=== PATIENT | female | born 1955 | race Caucasian/White ===

== ENCOUNTER 2020-02-26 16:22 | Outpatient (CLI) | payer BC, SELFPAY ==
--- NOTE | ~2020-02-26 | MM_ITS ---
EXAMINATION: MM screening [facility] BI w merary HISTORY: Screening mammogram TECHNIQUE: Craniocaudal and mediolateral oblique 3-D tomosynthesis images were obtained and synthetic 2-D images were generated. CAD analysis was submitted and interpreted. COMPARISON: 11/21/2018, 11/12/2017, 11/07/2016 BREAST PARENCHYMAL COMPOSITION: There are scattered areas of fibroglandular density. FINDINGS: There is no evidence of suspicious mass, calcification, or architectural distortion to sugg est malignancy in either breast. There has been no suspicious interval change. IMPRESSION: 1. No mammographic evidence of malignancy. 2. Recommend routine screening mammography in one year. BI-RADS Category 1: Negative Reviewed, dictated and finalized at location A.
== END 2020-02-26 16:23 | disposition home or self-care (01) ==
LOC: ANHIMG 16:29
PROVIDERS: Visit Provider Family Medicine
DX: Z12.31 Encounter for screening mammogram for malignant neoplasm of breast (principal)
CPT/HCPCS: 77063; 77067

== ENCOUNTER 2020-05-04 01:17 | Outpatient (CLI) | payer BC, SELFPAY ==
[2020-05-04 19:35] LABS: SARS-CoV-2 RNA PCR Negative
== END 2020-05-04 01:18 | disposition home or self-care (01) ==
LOC: ANHCOVIDDT 01:18
PROVIDERS: Visit Provider Internal Medicine Gastroenterology
DX: Z01.812 Encounter for preprocedural laboratory examination (principal); Z11.59 Encounter for screening for other viral diseases
CPT/HCPCS: 87635; C9803; U0003

== ENCOUNTER 2020-05-06 01:59 | Day surgery (SDC) | payer BC, SELFPAY ==
[2020-04-29 12:21] VITALS: BMI 27.5
[2020-05-06] MEDS: LACTATED RINGERS 1,000 ML 150 ML IV CONT (08:37)
[2020-05-06 08:38] VITALS: BP 147/75; PULSE 69; RESP 18; TEMP 36.3; O2SAT 100
--- NOTE | 2020-05-06 09:01 | P.PNAN_ITS ---
Anes - Initial Pre Proc Eval Procedure: Operation Date: 05/06/20 09:00 Proposed Procedures p Esophagogastroduodenoscopy - Eliezer Corral MD Date/Time: 05/06/20 09:01 Surgeon: Eliezer Corral MD Pre Op Diagnosis: GERD Patient Data Age: 65 Gender: F Height: 5 ft 3 in Weight: 70 kg Last Vital Signs Temp 97.3 F L 05/06/20 08:38 Pulse 69 05/06/20 08:38 Resp 18 05/06/20 08:38 BP 147/75 H 05/06/20 08:38 Pulse Ox 100 05/06/20 08:38 Allergies Allergy/AdvReac Type Severity Reaction Status Date / Time ciprofloxacin Allergy Unknown Rash Verified 05/06/20 08:35 codeine Allergy Unknown Rash Verified 05/06/20 08:35 dexamethasone Allergy Unknown Rash Verified 05/06/20 08:35 lisinopril Allergy Unknown Rash Verified 05/06/20 08:35 losartan Allergy Unknown RASH Verified 05/06/20 08:35 metoprolol Allergy Unknown Rash Verified 05/06/20 08:35 Home Medications Medication Instructions Recorded Confirmed Type alprazolam 1 mg PO HS 08/08/19 05/06/20 History amlodipine 5 mg PO BID 08/08/19 05/06/20 History aspirin [Adult Low Dose Aspirin] 81 mg PO DAILY 08/08/19 05/06/20 History atenolol 50 mg PO DAILY 08/08/19 05/06/20 History estradiol 1 g VAGINAL 3XW 08/08/19 05/06/20 History estradiol 1 patch TRANSDERMAL WEEKLY 08/08/19 05/06/20 History famciclovir 500 mg PO Q12H 08/08/19 05/06/20 History rosuvastatin 5 mg PO DAILY 08/08/19 05/06/20 History triamterene-hydrochlorothiazid 1 cap PO DAILY 08/08/19 05/06/20 History Colace 100 mg PO BID 04/29/20 05/06/20 History L.acidop,johnie,lac,rha-B.lac,celso 1 cap PO DAILY 04/29/20 05/06/20 History [Advanced Probiotic] Vit D 3 1,000 unit PO DAILY 04/29/20 05/06/20 History cimetidine 400 mg PO BID 04/29/20 05/06/20 History esomeprazole magnesium 40 mg PO DAILY 04/29/20 05/06/20 History nitrofurantoin macrocrystal 50 mg PO HS 04/29/20 05/06/20 History omega-3 fatty acids [Fish Oil 3,000 mg PO DAILY 04/29/20 05/06/20 History Concentrate] venlafaxine 37.5 mg PO DAILY 04/29/20 05/06/20 History Patient hx anesthesia problems: none Family hx anesthesia problems: none [facility] Family History Family History (Updated 05/29/19 @ 09:51 by DOCTOR UNKNOWN) Other Diabetes mellitus Family history of arthritis Social History Social History Smoking status: Former smoker Alcohol intake: current Gender identity (if verbalized by the patient): Female Anes - Eval Final PreProcedure Day of Procedure 05/06/20 09:01 Patient weight: normal Heart: regular rate and rhythm Lungs: clear to auscultation Airway: Mallampati scale class II Neurological: alert and oriented Last oral intake: >/= 8 hours ASA classification: II Emergent: no Anesthetic plan: proceed Anesthesia type and monitoring: general GIVS and standard monitoring Informed Consent: The patient's anesthetic plan and its attendant risks and benefits were discussed with the patient/family/POA. Questions were solicited and answers provided to the satisfaction of the patient/family/POA.
--- NOTE | 2020-05-06 09:02 | WPDGICN ---
Assessment and Plan Assessment and plan (1) Heartburn: Code(s): R12 - Heartburn Status: Acute Assessment and Plan: Because of patient's ongoing heartburn and poor response to medications an EGD will be planned. Patient has a distant history of Ned fundoplication. Plan is for EGD to assess more thoroughly. Continue Nexium with Tagamet supplements for the immediate future. (2) GERD (gastroesophageal reflux disease): Code(s): K21.9 - Gastro-esophageal reflux disease without esophagitis Status: Acute (3) History of fundoplication: Code(s): Z98.890 - Other specified postprocedural states Status: Acute GI Consult Note Consult date/time: 05/06/20 09:02 HPI: Renita Arthur is a 65 year old female Seen in evaluation at the request of Dr. Mirian Bentley. patient has complaints of worsening heartburn since November 2019. She noticed symptoms seemed to worsen after changing her heart medications which included atenolol. Alondra subsequently has been treated with Nexium 40 mg p.o. b.i.d. Carafate supplements and some improvement on adding Tagamet. She currently states she is pain-free and is discontinue the Carafate. She denies any dysphagia or weight loss. Several years ago was found to have distal esophageal web is known to have acid reflux disease colonoscopy in 2017 was unremarkable. Past medical history is significant for fundoplication for acid reflux. Family history is noncontributory. Review of Systems Review of Systems: All systems reviewed & are unremarkable except as noted in HPI and below PMFSH Past Medical History Medical History Arthritis HLD (hyperlipidemia) HTN (hypertension) Surgical History Surgical History History of bladder suspension procedure History of hysterectomy Hx of repair of rotator cuff lt shoulder Family History Family History Other Diabetes mellitus Family history of arthritis Social History Social History Smoking status: Former smoker Alcohol intake: current Gender identity (if verbalized by the patient): Female Meds Home Medications and Allergies Home Medications Medication Instructions Recorded Confirmed Type alprazolam 1 mg PO HS 08/08/19 05/06/20 History amlodipine 5 mg PO BID 08/08/19 05/06/20 History aspirin [Adult Low Dose Aspirin] 81 mg PO DAILY 08/08/19 05/06/20 History atenolol 50 mg PO DAILY 08/08/19 05/06/20 History estradiol 1 g VAGINAL 3XW 08/08/19 05/06/20 History estradiol 1 patch TRANSDERMAL WEEKLY 08/08/19 05/06/20 History famciclovir 500 mg PO Q12H 08/08/19 05/06/20 History rosuvastatin 5 mg PO DAILY 08/08/19 05/06/20 History triamterene-hydrochlorothiazid 1 cap PO DAILY 08/08/19 05/06/20 History Colace 100 mg PO BID 04/29/20 05/06/20 History L.acidop,johnie,lac,rha-B.lac,celso 1 cap PO DAILY 04/29/20 05/06/20 History [Advanced Probiotic] Vit D 3 1,000 unit PO DAILY 04/29/20 05/06/20 History cimetidine 400 mg PO BID 04/29/20 05/06/20 History esomeprazole magnesium 40 mg PO DAILY 04/29/20 05/06/20 History nitrofurantoin macrocrystal 50 mg PO HS 04/29/20 05/06/20 History omega-3 fatty acids [Fish Oil 3,000 mg PO DAILY 04/29/20 05/06/20 History Concentrate] venlafaxine 37.5 mg PO DAILY 04/29/20 05/06/20 History Allergies Allergy/AdvReac Type Severity Reaction Status Date / Time ciprofloxacin Allergy Unknown Rash Verified 05/06/20 08:35 codeine Allergy Unknown Rash Verified 05/06/20 08:35 dexamethasone Allergy Unknown Rash Verified 05/06/20 08:35 lisinopril Allergy Unknown Rash Verified 05/06/20 08:35 losartan Allergy Unknown RASH Verified 05/06/20 08:35 metoprolol Allergy Unknown Rash Verified 05/06/20 08:35 Vital Signs Vital Signs - 24 hr 05/06/20 08:38 Temperature 97.3 F L P
[2020-05-06] MEDS: BENZOCAINE (*SP) 60 ML SPRAY CAN (HURRICAINE) 1 SPRAY MUCOUS MEM (09:13)
[2020-05-06 09:26] VITALS: BP 105/85; PULSE 69; RESP 18; O2SAT 99
[2020-05-06 09:36] VITALS: BP 121/71; PULSE 67; RESP 23; O2SAT 99
[2020-05-06 09:46] VITALS: BP 140/83; PULSE 60; RESP 16; O2SAT 100
== END 2020-05-06 09:53 | disposition home or self-care (01) ==
PROVIDERS: Visit Provider Internal Medicine Gastroenterology
PROC: 0DJ08ZZ Inspection of Upper Intestinal Tract, Via Natural or Artificial Opening Endoscopic (ICD-10-PCS; CPT 43235; principal; 2020-05-06 09:00)
DX: R12 Heartburn (principal); K21.9 Gastro-esophageal reflux disease without esophagitis; I10 Essential (primary) hypertension; E78.5 Hyperlipidemia, unspecified; Z87.891 Personal history of nicotine dependence; Z79.82 Long term (current) use of aspirin
CPT/HCPCS: 43239; 87081; J2001; J2704; J7120

== ENCOUNTER 2020-12-06 14:51 | Outpatient (CLI) | payer BC, SELFPAY ==
--- NOTE | ~2020-12-06 | XR_ITS ---
EXAMINATION: XR chest 2V DATE: 12/06/2020 15:33 INDICATION: Left chest pain. TECHNIQUE: Frontal and lateral views of the chest were obtained on 3 radiographs. COMPARISON: Chest 2 views 08/08/2019, chest CT 08/08/2019 FINDINGS: The chest demonstrates clear lungs without pneumonia, pleural effusion, or pneumothorax. Th e heart size is normal. There is a moderate-sized hiatal hernia. Surgical clips are noted around the stomach. IMPRESSION: 1. Moderate-sized hiatal hernia. Reviewed, dictated and finalized at location A. K STUDIES PROFESSOR
--- NOTE | 2020-12-06 15:11 | ECG_ITS ---
Measurements Intervals [place] Rate: 70 P: 53 [place]: 170 QRS: 27 QRSD: 106 T: 31 QT: 396 QTc: 428 Interpretive Statements SINUS RHYTHM NORMAL ECG Electronically Signed On 12-06-2020 16:26:56 NEWS COMMENTATOR by Geovanny Calles D.O.
== END 2020-12-06 14:52 | disposition home or self-care (01) ==
PROVIDERS: Visit Provider Family Medicine
DX: R07.89 Other chest pain (principal); K44.9 Diaphragmatic hernia without obstruction or gangrene
CPT/HCPCS: 71046; 93005

== ENCOUNTER 2021-03-10 16:12 | Emergency (ER) | payer OTHER, BC, SELFPAY ==
--- NOTE | ~2021-03-10 | XR_ITS ---
EXAMINATION: XR foot LT min 3V DATE: 03/10/2021 16:47 INDICATION: Left foot injury and pain. TECHNIQUE: 4 views of left foot were obtained. COMPARISON: None. FINDINGS: Bone alignment is normal. No fracture. There is moderate osteoarthritis of first metatarsop halangeal joint and mild osteoarthritis of some the interphalangeal joints. There is an enthesophyte at plantar aspect of calcaneal tuberosity. IMPRESSION: 1. Polyarticular osteoarthritis. Reviewed, dictated and finalized at location A.
--- NOTE | ~2021-03-10 | XR_ITS ---
EXAMINATION: XR ankle LT min 3V DATE: 03/10/2021 16:47 INDICATION: Left ankle injury. TECHNIQUE: 4 views of left ankle were obtained. COMPARISON: None. FINDINGS: Bone alignment is normal. No fracture. Joint spaces are normal. There is an enthesophyte at plantar aspect of calcaneal tuberosity. IMPRESSION: 1. No fracture. Reviewed, dictated and finalized at location A. IMPRESSION: 1. No fracture.
--- NOTE | 2021-03-10 16:19 | ED.LOWEXIN ---
HPI - Extremity Injury (Lower) General Chief Complaint: Extremity Injury, Lower Stated Complaint: swollen left foot Source: patient and RN notes reviewed Mode of arrival: ambulatory History of Present Illness HPI Narrative: This is a 66-year-old female who presented to urgent care with complaints of left lower extremity pain status post fall. According to patient approximately 9 days ago while she was walking out of the [employer] shop she missed a step in fell to the ground patient notes that her left foot inverted during the fall. She notes that for the last couple days she has been icing and elevating her leg with no relief she does have discoloration and swelling to the left foot. She also notes that when she bears weight on that left lower extremity she feels pinpoint pain. She has full range of motion to that left lower extremity with pain she has positive for sensation pulses are palpable she is able to move all her toes. The patient denies SOB, CP, palpitation, extremity numbness, lightheadedness, dizziness, constipation, diarrhea, chills, or fever. MD complaint: ankle injury (Left) and foot injury (Left) Related Data Home Medications Medication Instructions Recorded Confirmed alprazolam 1 mg PO HS 08/08/19 03/10/21 amlodipine 5 mg PO BID 08/08/19 03/10/21 aspirin [Adult Low Dose Aspirin] 81 mg PO DAILY 08/08/19 03/10/21 atenolol 50 mg PO DAILY 08/08/19 03/10/21 estradiol 1 g VAGINAL 3XW 08/08/19 03/10/21 estradiol 1 patch TRANSDERMAL WEEKLY 08/08/19 03/10/21 famciclovir 500 mg PO Q12H 08/08/19 03/10/21 rosuvastatin 5 mg PO DAILY 08/08/19 03/10/21 triamterene-hydrochlorothiazid 1 cap PO DAILY 08/08/19 03/10/21 Advanced Probiotic 1 cap PO DAILY 04/29/20 03/10/21 Vit D 3 1,000 unit PO DAILY 04/29/20 03/10/21 esomeprazole magnesium 40 mg PO DAILY 04/29/20 03/10/21 nitrofurantoin macrocrystal 50 mg PO HS 04/29/20 03/10/21 omega-3 fatty acids [Fish Oil 3,000 mg PO DAILY 04/29/20 03/10/21 Concentrate] venlafaxine 37.5 mg PO BID 04/29/20 03/10/21 cimetidine 400 mg PO BID 03/10/21 03/10/21 trazodone 50 mg PO HS 03/10/21 03/10/21 Allergies Allergy/AdvReac Type Severity Reaction Status Date / Time ciprofloxacin Allergy Mild Rash Verified 03/10/21 16:36 codeine Allergy Mild Rash Verified 03/10/21 16:36 dexamethasone Allergy Mild Rash Verified 03/10/21 16:36 lisinopril Allergy Mild Rash Verified 03/10/21 16:36 losartan Allergy Mild RASH Verified 03/10/21 16:36 metoprolol Allergy Mild Rash Verified 03/10/21 16:36 Review of Systems Review of Systems: Narrative: A 14 organ system Review of Systems was performed and pertinent positives included in the HPI, otherwise remaining ROS is negative. [facility] Past Medical History Medical History (Updated 03/10/21 @ 16:47 by JHONATAN Hoffman) Arthritis HLD (hyperlipidemia) HTN (hypertension) Surgical History Surgical History (Updated 05/06/20 @ 09:05 by Eliezer Corral MD) History of bladder suspension procedure History of hysterectomy Hx of repair of rotator cuff lt shoulder Family History Family History Other Diabetes mellitus Family history of arthritis Social History Social History Smoking status: Former smoker Alcohol intake: current Gender identity (if verbalized by the patient): Female Exam Narrative: Exam Narrative: GENERAL: This is a well-nourished, well-developed patient, in no apparent distress. HEAD: normocephalic, atraumatic. EYES: PERRL. Sclera clear/white. Vision is grossly intact. EARS: External ears normal, auditory canals clear and without drainage, TMs normal without perforation. Hearing grossly intact. NOSE: External nose normal with no obvious nasal discharge, nares without redness, no rhinorrhea. THROAT: Mucous membranes moist, posterior pharynx clear. NECK: Neck supple, non-tender without lymphadenopathy, masses or thyromegaly. CA
[2021-03-10 16:22] VITALS: BP 129/81; PULSE 76; RESP 18; TEMP 36.5; O2SAT 99
[2021-03-10 16:39] VITALS: BP 129/81; PULSE 76; RESP 18; TEMP 36.5; O2SAT 99
== END 2021-03-10 17:22 | disposition home or self-care (01) ==
PROVIDERS: Emergency Provider Nurse Practitioner; PCP Family Medicine
DX: S93.402A Sprain of unspecified ligament of left ankle, initial encounter (principal); S96.912A Strain of unspecified muscle and tendon at ankle and foot level, left foot, initial encounter; W10.9XXA Fall (on) (from) unspecified stairs and steps, initial encounter; M19.90 Unspecified osteoarthritis, unspecified site; E78.5 Hyperlipidemia, unspecified; I10 Essential (primary) hypertension; Z87.891 Personal history of nicotine dependence
CPT/HCPCS: 73610; 73630; 99213; G0463

== ENCOUNTER 2021-04-19 15:03 | Outpatient (CLI) | payer BC, SELFPAY ==
--- NOTE | ~2021-04-19 | MM_ITS ---
EXAMINATION: MM screening [facility] BI w merary HISTORY: Screening TECHNIQUE: Craniocaudal and mediolateral oblique 3-D tomosynthesis images were obtained and synthetic 2-D images were generated. CAD analysis was submitted and interpreted. COMPARISON: Comparison to multiple prior studies sequentially, with oldest reviewed study dated 10/19. BREAST PARENCHYMAL COMPOSITION: There are scattered areas of fibroglandular density. FINDINGS: Bilateral subareolar asymmetries are unchanged from prior studies. There is no evidence of suspicious mass, calcification, or architectural distortion to suggest malignancy in either breast. T here has been no suspicious interval change. IMPRESSION: 1. No mammographic evidence of malignancy. 2. Recommend routine screening mammography in one year. BI-RADS Category 1: Negative Reviewed, dictated and finalized at location A.
== END 2021-04-19 15:04 | disposition home or self-care (01) ==
LOC: ANHIMG 15:08
PROVIDERS: PCP Family Medicine; Visit Provider Family Medicine
DX: Z12.31 Encounter for screening mammogram for malignant neoplasm of breast (principal)
CPT/HCPCS: 77063; 77067

== ENCOUNTER 2021-09-02 09:45 | Outpatient (CLI) | payer BC, SELFPAY | END 2021-09-02 09:46 | disposition home or self-care (01) | LOC: ANHAUDIO 09:46 | PROVIDERS: PCP Family Medicine; Visit Provider Nurse Practitioner Family | DX: H93.13 Tinnitus, bilateral (principal) | CPT/HCPCS: 92557; 92567 ==

== ENCOUNTER 2022-06-27 15:51 | Outpatient (CLI) | payer MEDICARE, OTHER, SELFPAY ==
--- NOTE | ~2022-06-27 | MM_ITS ---
EXAMINATION: MM screening [facility] w merary HISTORY: Screening mammogram TECHNIQUE: Craniocaudal and mediolateral oblique 3-D tomosynthesis images were obtained and synthetic 2-D images were generated. CAD analysis was submitted and interpreted. COMPARISON: 04/19/2021, 02/26/2020, 11/21/2018 bilateral screening mammogram examinations BREAST PARENCHYMAL COMPOSITION: There are scattered areas of fibroglandular density. FINDINGS: Scattered bilateral benign calcifications. Stable mild fibroglandular asymmetry. There is n o evidence of suspicious mass, calcification, or architectural distortion to suggest malignancy in ei ther breast. There has been no suspicious interval change. IMPRESSION: 1. No mammographic evidence of malignancy. 2. Recommend routine screening mammography in one year. BI-RADS Category 2: Benign finding(s). Reviewed, dictated and finalized at location A.
== END 2022-06-27 15:52 | disposition home or self-care (01) ==
PROVIDERS: PCP Family Medicine; Visit Provider Family Medicine
DX: Z12.31 Encounter for screening mammogram for malignant neoplasm of breast (principal)
CPT/HCPCS: 77063; 77067

== ENCOUNTER 2023-11-06 09:57 | Outpatient (CLI) | payer MEDICARE, OTHER, SELFPAY ==
--- NOTE | ~2023-11-06 | MM_ITS ---
EXAMINATION: MM screening [facility] w merary HISTORY: Screening mammogram TECHNIQUE: Craniocaudal and mediolateral oblique 3-D tomosynthesis images were obtained and synthetic 2-D images were generated. CAD analysis was submitted and interpreted. COMPARISON: 06/27/2022, 04/19/2021, 02/26/2020 bilateral screening mammogram examinations BREAST PARENCHYMAL COMPOSITION: There are scattered areas of fibroglandular density. FINDINGS: Stable fibroglandular asymmetry. Scattered bilateral benign calcifications are again noted. There is no evidence of suspicious mass, calcification, or architectural distortion to suggest malig jong in either breast. There has been no suspicious interval change. IMPRESSION: 1. No mammographic evidence of malignancy. 2. Recommend routine screening mammography in one year. BI-RADS Category 2: Benign finding(s). Reviewed, dictated and finalized at location A. TECHNICIAN
== END 2023-11-06 09:58 | disposition home or self-care (01) ==
PROVIDERS: PCP Family Medicine; Visit Provider Family Medicine
DX: Z12.31 Encounter for screening mammogram for malignant neoplasm of breast (principal)
CPT/HCPCS: 77063; 77067

== ENCOUNTER 2023-12-03 13:28 | Outpatient (CLI) | payer MEDICARE, OTHER, SELFPAY ==
--- NOTE | ~2023-12-03 | CT_ITS ---
EXAMINATION: CT LE RT wo con DATE: 12/03/2023 13:59 INDICATION: Right knee unilateral primary osteoarthritis. Preop planning. TECHNIQUE: Computed tomography (CT) of the right lower limb was performed without intravenous contras t. Automated exposure control and iterative reconstruction technique were employed. The dose-length p roduct was 1488.09 mGy-cm. COMPARISON: Right knee radiographs 08/06/2023 FINDINGS: Right hip demonstrates normal bone alignment. No fracture. There is mild right hip osteoart hritis. Right knee demonstrates moderate osteoarthritis of the medial and patellofemoral compartments and mild osteoarthritis of lateral compartment. There is a moderate-sized knee joint effusion. IMPRESSION: 1. Moderate right knee osteoarthritis. 2. Moderate-sized right knee joint effusion. 3. Mild right hip osteoarthritis. Reviewed, dictated and finalized at location E. TRUCTION CONTRACTOR
--- NOTE | 2023-12-03 14:06 | ECG_ITS ---
Measurements Intervals [place] Rate: 69 P: 46 NE: 158 QRS: 18 QRSD: 93 T: 32 QT: 365 QTc: 391 Interpretive Statements SINUS RHYTHM DELAYED PRECORDIAL R/S TRANSITION BORDERLINE T WAVE ABNORMALITY- ANT/INF LEADS BASELINE WANDER- V3-V4 BORDERLINE ECG COMPARED TO ECG 12/06/2020 15:18:28 NO SIGNIFICANT CHANGES Electronically Signed On 12-03-2023 14:20:17 SERGEANT MISSILE CREWMAN by Geovanny Calles D.O.
[2023-12-03 15:02] LABS: Hematocrit 37.5 % (37.0-47.0)
[2023-12-03 15:18] LABS: Albumin Level 4.2 g/dL (3.5-5.1); Estimated Glomerular Filt Rate > 60; Glucose 110 mg/dL (65-110)
[2023-12-03 15:31] LABS: Urine Cotinine NEGATIVE
== END 2023-12-03 13:29 | disposition home or self-care (01) ==
PROVIDERS: PCP Family Medicine; Visit Provider Orthopaedic Surgery
DX: M17.11 Unilateral primary osteoarthritis, right knee (principal); I10 Essential (primary) hypertension; E78.5 Hyperlipidemia, unspecified; Z79.899 Other long term (current) drug therapy; M16.11 Unilateral primary osteoarthritis, right hip; M25.461 Effusion, right knee
CPT/HCPCS: 73700; 80307; 82040; 82565; 82947; 85014; 85018; 93005

== ENCOUNTER 2023-12-26 07:44 | Outpatient (CLI) | payer MEDICARE, OTHER, SELFPAY ==
[2023-12-26 09:27] LABS: Basophils Percent Auto 0.7 % (0.2-1.2); Eosinophils Absolute Auto 0.7 K/mm3 (0-0.3); Eosinophils Percent Auto 12.1 % (0-4.4); Hematocrit 38.5 % (37.0-47.0); Hemoglobin 12.9 g/dL (12.0-15.0); Immature Granulocyte Absolute 0.02 K/mm3 (0.00-0.031); Immature Granulocyte Percent A 0.3 % (0-0.5); Lymphocytes Absolute Auto 1.64 K/mm3 (0.9-3.2); Lymphocytes Percent Auto 28.7 % (18.3-44.2); Mean Corpuscular HGB Conc 33.5 g/dl (32-36); Mean Corpuscular Hemoglobin 30.6 pg (26-34); Mean Corpuscular Volume 91.4 fl (80-100); Monocytes Absolute Auto 0.5 K/mm3 (0.1-0.6); Monocytes Percent Auto 8.6 % (2.6-8.5); Neutrophils Absolute Auto 2.8 K/mm3 (1.3-6.7); Neutrophils Percent Auto 49.6 % (45.5-73.1); Platelet Count Result 223 k/mm3 (150-375); Red Blood Count 4.21 M/mm3 (4.2-5.4); Red Cell Distribution Width 12.6 % (11.5-14.5); White Blood Count 5.7 K/mm3 (4.5-10.0)
[2023-12-26 10:02] LABS: Anion Gap 6 mmol/L (4-12); Blood Urea Nitrogen 13 mg/dL (7-17); Calcium 10.3 mg/dL (8.4-10.2); Carbon Dioxide 29 mmol/L (22-30); Chloride 103 mmol/L (98-107); Estimated Glomerular Filt Rate > 60; Glucose 106 mg/dL (65-110); Sodium 138 mmol/L (137-145)
[2023-12-26 10:20] LABS: Hemoglobin A1C 5.7 % (<5.7)
[2023-12-26 10:41] LABS: MRSA (PCR) NOT DETECTED (NOT DETECTE)
== END 2023-12-26 07:45 | disposition home or self-care (01) ==
LOC: ANHSURGERY 07:51
PROVIDERS: Anesthesiology; PCP Family Medicine; Visit Provider Orthopaedic Surgery
DX: Z01.818 Encounter for other preprocedural examination (principal); M17.11 Unilateral primary osteoarthritis, right knee; E11.9 Type 2 diabetes mellitus without complications
CPT/HCPCS: 36415; 80048; 83036; 85025; 87641

== ENCOUNTER 2024-01-24 00:54 | Day surgery (SDC) | payer MEDICARE, OTHER, SELFPAY ==
[2023-12-26 08:22] VITALS: BP 110/92; PULSE 70; RESP 16; TEMP 36.8; O2SAT 100; BMI 27.0
--- NOTE | 2023-12-26 08:41 | PC.NURSE ---
Report to the Outpatient Waiting Room, entrance under the green pavilion located off [facility], at time __8:00AM on date __01/24/24 . Planned Procedure Time: __10:00AM . Time changes happen often and if your time is changed the preop area will call you the afternoon before. - You and your visitor will be asked to self-screen and do not enter if you have any COVID symptoms. - A mask is optional within the hospital at this time. Patients may have clear liquids (water, carbonated beverages, clear teas, apple juice) until 3 hours prior to surgery with a maximum of 20 ounces. - No food from midnight until time of surgery. Take the following medications with a SIP of water the morning of surgery: ___ALPRAZOLAM, AMLODIPINE, ATENOLOL, VENLAFAXINE, BREZTRI INHALER DO NOT STOP ANY OF YOUR OTHER PRESCRIPTION MEDICATIONS PRIOR TO SURGERY ?EXCEPT THE FOLLOWING Medications to discontinue per physician ____HOLD ASPIRIN & VITAMINS/SUPPLEMENTS 7 DAYS PRE-OP PER DR VERDUZCO Date to take last dose 01/16/24 Please no make-up, nail chilean, hairspray, perfume, deodorant, or body powder the day of surgery. No jewelry (including any body piercings) or valuables the day of surgery, leave them at home. Please take a shower or bath the night before, or the morning of, surgery with an antibacterial soap. Wear comfortable, loose fitting clothing. - Jewelry must be removed prior to entering the operating room. Rings and piercings that are not removed may be cut off. - The hospital will not accept responsibility for valuables. - Please leave all valuables, including medications, at home the day of surgery. If you are going home after surgery, a licensed rail car driver must drive you home. - NO public transportation without another adult if you receive anesthesia. - We recommend that an adult stay with you for 24 hours following discharge. - We also recommend that you do not drive, make important decision, drink alcoholic beverages, or take any drugs that were not prescribed by your health care provider for at least 24 hours after your discharge time. Follow any additional instructions given to you from your surgeon. If you or anyone in your household have experienced Covid symptoms in the past week, please notify your surgeon or the nurse liaison at the phone number below for possible testing. Telephone instructions given to ____PATIENT and asked if any additional questions and then verbalized understanding. Patient advised to call surgeon office or pre surgery nurse liaison [phone] if any additional questions.
--- NOTE | 2023-12-26 08:45 | PC.NURSE ---
Report to the Outpatient Waiting Room, entrance under the green pavilion located off [facility], at time __8:00AM on date ___01/24/24____. Planned Procedure Time: __10:00AM . Time changes happen often and if your time is changed the preop area will call you the afternoon before. - You and your visitor will be asked to self-screen and do not enter if you have any COVID symptoms. - A mask is optional within the hospital at this time. Patients may have clear liquids (water, carbonated beverages, clear teas, apple juice) until 3 hours prior to surgery with a maximum of 20 ounces. - No food from midnight until time of surgery. Take the following medications with a SIP of water the morning of surgery: __ALPRAZOLAM, AMLODIPINE, ATENOLOL, VENLAFAXINE, INHALER DO NOT STOP ANY OF YOUR OTHER PRESCRIPTION MEDICATIONS PRIOR TO SURGERY ?EXCEPT THE FOLLOWING Medications to discontinue per physician ____HOLD ASPIRIN & ALL VITAMINS/SUPPLEMENTS 7 DAYS PRE-OP Date to take last dose 01/16/24 Please no make-up, nail spanish, hairspray, perfume, deodorant, or body powder the day of surgery. No jewelry (including any body piercings) or valuables the day of surgery, leave them at home. Please take a shower or bath the night before, or the morning of, surgery with an antibacterial soap. Wear comfortable, loose fitting clothing. - Jewelry must be removed prior to entering the operating room. Rings and piercings that are not removed may be cut off. - The hospital will not accept responsibility for valuables. - Please leave all valuables, including medications, at home the day of surgery. If you are going home after surgery, a licensed trailer driver must drive you home. - NO public transportation without another adult if you receive anesthesia. - We recommend that an adult stay with you for 24 hours following discharge. - We also recommend that you do not drive, make important decision, drink alcoholic beverages, or take any drugs that were not prescribed by your health care provider for at least 24 hours after your discharge time. Follow any additional instructions given to you from your surgeon. If you or anyone in your household have experienced Covid symptoms in the past week, please notify your surgeon or the nurse liaison at the phone number below for possible testing. Telephone instructions given to __PATIENT and asked if any additional questions and then verbalized understanding. Patient advised to call surgeon office or pre surgery nurse liaison [phone] if any additional questions.
[2024-01-24] VITALS (13 sets, daily range): BP systolic 92–126; BP diastolic 57–81; PULSE 66–82; RESP 10–18; TEMP 35.6–37.1; O2SAT 95–100
--- NOTE | ~2024-01-24 | XR_ITS ---
EXAMINATION: [id number] DATE: 01/24/2024 13:14 CDT INDICATION: Right total knee arthroplasty TECHNIQUE: 2 views right knee FINDINGS: There is a right total knee arthroplasty in expected position. Subcutaneous gas with fluid and air in the joint are consistent with recent surgery. No evidence of periprosthetic fracture. IMPRESSION: 1. Recent right total knee arthroplasty. Reviewed, dictated and finalized at location B.
[2024-01-24] MEDS: ACETAMINOPHEN 500 MG TABLET 1000 MG PO (08:25)
[2024-01-24] MEDS: LACTATED RINGERS 1,000 ML 30 ML IV CONT ×2 (08:38→12:53)
[2024-01-24 08:43] LABS: Glucose Point of Care 133 mg/dl (65-105)
--- NOTE | 2024-01-24 09:25 | WPDANESEPPF ---
Anes - Initial Pre Proc Eval Procedure: Operation Date: 01/24/24 10:00 Proposed Procedures p Right Custom Total Knee Arthroplasty - Keenan Pichardo MD Date/Time: 01/24/24 09:25 Surgeon: Keenan Pichardo MD Pre Op Diagnosis: Prim O A Rt Knee Patient Data Age: 69 Gender: F Height: 1.61 m Weight: 71.2 kg Last Vital Signs Temp 98.3 F 01/24/24 08:58 Pulse 66 01/24/24 08:58 Resp 16 01/24/24 08:58 BP 112/81 01/24/24 08:58 Pulse Ox 99 01/24/24 08:58 O2 Del Method Room Air 01/24/24 08:58 Allergies Allergy/AdvReac Type Severity Reaction Status Date / Time ciprofloxacin Allergy Mild Rash, Verified 01/24/24 08:09 FLUSHING OF SKIN dexamethasone Allergy Mild Rash Verified 01/24/24 08:09 lisinopril Allergy Mild Rash Verified 01/24/24 08:09 losartan Allergy Mild RASH Verified 01/24/24 08:09 metoprolol Allergy Mild Rash Verified 01/24/24 08:09 codeine AdvReac Mild LIGHTHEADED, Verified 01/24/24 08:09 DIZZY Home Medications Medication Instructions Recorded Confirmed Type alprazolam 1 mg tablet 1 mg PO BID 08/08/19 01/24/24 History amlodipine 5 mg tablet 5 mg PO BID 08/08/19 01/24/24 History aspirin 81 mg tablet,delayed 81 mg PO DAILY 08/08/19 01/24/24 History release (Adult Low Dose Aspirin) atenolol 50 mg tablet 50 mg PO QAM 08/08/19 01/24/24 History estradiol 0.01% (0.1 mg/gram) 1 g vaginal 3XW PRN Pain 08/08/19 01/24/24 History vaginal cream rosuvastatin 5 mg tablet 5 mg PO DAILY 08/08/19 01/24/24 History triamterene 37.5 1 cap PO QAM 08/08/19 01/24/24 History mg-hydrochlorothiazide 25 mg capsule L.acidop,casei,lactis,rham-B.lact,celso 1 cap PO DAILY 04/29/20 01/24/24 History 625 mg (10 billion cell) capsule (Advanced Probiotic) omega-3 fatty acids 1,000 mg 3,000 mg PO DAILY 04/29/20 01/24/24 History capsule (Fish Oil Concentrate) metformin 500 mg tablet 500 mg PO BID 12/16/21 01/24/24 History blood sugar diagnostic 08/06/23 01/07/24 History lancets 21 gauge (Unistik Extra 08/06/23 01/07/24 History Lancets) budesonide 160 mcg-glycopyr 9 2 inh inhalation BID PRN Shortness 11/23/23 01/24/24 History mcg-formot 4.8 mcg/actuation HFA Of Breath Or Wheezing inhaler (Breztri Aerosphere) acetaminophen 500 mg tablet 1,000 mg PO Q6H PRN Pain 12/26/23 01/24/24 History (Tylenol Extra Strength) cholecalciferol (vitamin D3) 25 25 mcg PO DAILY 12/26/23 01/24/24 History mcg (1,000 unit) capsule diphenhydramine 25 2 tablet PO HS PRN Insomnia 12/26/23 01/24/24 History mg-acetaminophen 500 mg tablet (Tylenol PM Extra Strength) polyethylene glycol 3350 17 gram 17 g PO DAILY 12/26/23 01/24/24 History oral powder packet (Miralax) sennosides 8.6 mg-docusate sodium 1 tab-cap PO DAILY 12/26/23 01/24/24 History 50 mg tablet (Senna with Docusate Sodium) venlafaxine 75 mg capsule,extended 75 mg PO QAM 12/26/23 01/24/24 History release 24 hr oxycodone-acetaminophen 5 mg-325 1 - 2 tablet PO Q4-6H PRN pain #30 01/24/24 Rx mg tablet tabs prednisone 5 mg tablet 5 mg PO DAILY 3 weeks #21 tabs 01/24/24 Rx Laboratory Tests 01/24/24 01/24/24 08:29 08:40 POC Capillary Glucose 133 H mg/dl (65-105) Blood Type Pending Antibody Screen Pending Patient hx anesthesia problems: none Family hx anesthesia problems: none Results Review: All pre-operative results and documents have been reviewed as part of the pre-operative evaluation. [facility] Past Medical History Medical History Arthritis HLD (hyperlipidemia) HTN (hypertension) Overweight (BMI 25.0-29.9) Surgical History Surgical History History of bladder suspension procedure History of hysterectomy Hx of repair of rotator cuff lt shoulder Family History Family History (Reviewed 01/24/24 @ 09:25 by Dario Recio,
[2024-01-24] MEDS: TRANEXAMIC ACID 1,000MG/ISO100 1,000 MG/100 ML BAG 200 MG IVPB (09:45)
--- NOTE | 2024-01-24 10:22 | WPDHPUPDATE1 ---
History and Physical Update Update Date/Time: 01/24/24 10:22 History and Physical has been reviewed, including an updated exam of the patient. There are NO changes in the patient's condition. Risks, benefits, and alternatives have been discussed and questions answered. Patient agrees to proceed with procedure.
--- NOTE | 2024-01-24 10:27 | WPDANESPNB ---
Anes - Peripheral Nerve Block Date/Time: 01/24/24 10:27 I have discussed with the patient/family/POA the placement of a peripheral nerve block for post-operative pain management, including associated risks, benefits, complications, and side effects. Alternative methods of post-operative analgesia were detailed. Questions were solicited and answers provided to the satisfaction of the patient/family/POA. Time-Out: A pre-procedural Time-Out was completed immediately before starting the procedure and confirmed: Patient Identification, Site, Procedure, Patient Position and the Availability of Requisite Equipment. Clinical Indications: Acute post-operative pain management requested by the operative surgeon. Nerve Block Insertion Note Anes-nerve block: adductor canal Patient position: supine Skin prep: chlorhexidine Needle: 22 gauge, stimulating, insulated echogenic needle. Needle length: 80 mm Technique: ultrasound Injectate: other (Bupiv 0.5%, 15 mls. ) Observations: tolerated well Complications: none Procedure start time:: 1016 Procedure end time:: 1021
[2024-01-24] MEDS: ceFAZolin 2 GM/D5W 50 ML 2 GM/50 ML BAG IVPB ×2 (10:29→17:52)
[2024-01-24] MEDS: SODIUM CHLORIDE 0.9% IV 37.7 ML, MORPHINE SULFATE INJ (*CRX) 2 MG, ROPivacaine HCL 1% 2... INFILTRATE (11:14)
[2024-01-24 13:09] LABS: Glucose Point of Care 137 mg/dl (65-105)
[2024-01-24] MEDS: fentaNYL CITRATE INJ (*CRX) 100 MCG/2 ML VIAL 25 MCG IV PUSH ×5 (13:21→14:04)
--- NOTE | 2024-01-24 14:58 | W.PM.PROC2 ---
Procedure Note - Detailed Date of Procedure 01/24/24 Pre-op Diagnosis Osteoarthritis right knee Post-op Diagnosis Same Procedure Performed Total knee arthroplasty, right. Surgeon Keenan Pichardo MD Leather Stretcher Laura Kennedy PA-C Anesthesia General and Regional (Subsartorial block.) Findings Custom knee implants fit optimally. No significant contracture. Good bone quality. No additional releases. Description of Procedure Preoperative antibiotics were given. The limb was prepped and draped in the usual sterile fashion with a well-padded tourniquet high on the thigh. The limb was exsanguinated and the tourniquet inflated to 300 mmHg. A longitudinal incision was created just medial to the patella. A sub vastus approach to the knee was performed. Arthrotomy was taken down through the joint capsule. No significant releases were initially taken. The femur was exposed and the F1 jig was applied. The coring tool was used to remove the cartilage for the F2 jig to sit flush with the bone. The jig was pinned and the distal cut carefully taken. Caliper measurements confirmed appropriate bony resections according to the preoperative templated plan. The F4 cutting jig for the femur was applied, at the standard rotation. The AP and anterior chamfer cuts were taken. The F5 jig was applied and the posterior chamfer cuts were taken. The tibia was prepared using the T1 jig, after removing cartilage for the jig contact points. Proper alignment was checked with the alignment karsten. The tibia was cut using the T1u guide. Gap balancing was performed. Gap measurements were taken and the knee was trialed. Excellent alignment and soft tissue balancing was confirmed. The posterior cruciate ligament was recessed along the proximal tibia. The patella was denervated. Meniscal remnants were removed. The trial components were assembled. Excellent range of motion and proper soft tissue balancing were confirmed throughout the full range of motion. Patellar tracking was excellent. The knee was copiously irrigated periodically throughout the procedure. The real implants were cemented into position. Excess cement was carefully removed. The wound was closed in layers with interrupted #1 Vicryl suture, 2-0 strata fix suture, 0 strata fix suture, 2-0 strata fix suture. Steri-Strips placed on the skin with the knee flexed. Sterile bulky dressing applied. The patient was brought to the recovery room in stable condition. There were no complications. Physician assistant plant control operator, Laura Kennedy PA-C, required for surgery; including patient positioning, draping, tissue retraction, maintaining instrument position, cement removal, wound closure, and dressing placement. Implants Conformis Custom total knee arthroplasty. Cemented. Cruciate retaining. 6B insert. Estimated Blood Loss 100 Drains No Complications No immediate complications Condition Stable Disposition PACU [facility] Billing Surgery - Charge Forward: Surgery Billing
--- NOTE | 2024-01-24 15:09 | PC.NURSE ---
This patient, Renita Arthur, was admitted to 3 [facility] Surg Room 300-01. Report received from LIO Gooden. Patient/family oriented to hospital policies and general routines including ID bracelet, bed and alarms, visiting hours, pain management, procedures, bathroom and other care routines, personal items, smoking policy, room service/diet, and visiting hours. Information on how to activate the Rapid Response Team has been discussed. Patient/Family are encouraged to report perceived risks to care and to ask questions if they do not understand what they are told or what they should do.
[2024-01-24] MEDS: ASPIRIN 81 MG ENTERIC TABLET PO (17:00)
[2024-01-24] MEDS: metFORMIN HCL 500 MG TABLET PO (17:00)
[2024-01-24] MEDS: ALPRAZolam (*CRX) 0.5 MG TABLET 1 MG PO (17:01)
[2024-01-24] MEDS: SENNA/DOCUSATE SODIUM TABLET 2 TAB PO (17:01)
[2024-01-24] MEDS: ACETAMINOPHEN 325 MG TABLET 650 MG PO (17:52)
[2024-01-24] MEDS: amLODIPine BESYLATE 5 MG TABLET PO (20:49)
[2024-01-25 00:08] VITALS: BP 112/62; PULSE 73; RESP 16; TEMP 36.2; O2SAT 98
[2024-01-25] MEDS: ACETAMINOPHEN 325 MG TABLET 650 MG PO ×3 (00:32→12:51)
[2024-01-25] MEDS: ceFAZolin 2 GM/D5W 50 ML 2 GM/50 ML BAG IVPB ×2 (03:02→11:07)
[2024-01-25 03:39] VITALS: BP 122/64; PULSE 72; RESP 18; TEMP 36.1; O2SAT 100
[2024-01-25] MEDS: oxyCODONE/ACETAMINOPHEN (*CRX) 5-325 MG TABLET 1 TABLET PO (05:30)
[2024-01-25 06:27] LABS: Basophils Percent Auto 0.4 % (0.2-1.2); Eosinophils Absolute Auto 0.2 K/mm3 (0-0.3); Hematocrit 33.7 % (37.0-47.0); Immature Granulocyte Absolute 0.01 K/mm3 (0.00-0.031); Immature Granulocyte Percent A 0.2 % (0-0.5); Lymphocytes Absolute Auto 1.17 K/mm3 (0.9-3.2); Mean Corpuscular HGB Conc 32.6 g/dl (32-36); Mean Corpuscular Volume 91.8 fl (80-100); Mean Platelet Volume 9.4 fl (7.4-10.4); Monocytes Absolute Auto 0.5 K/mm3 (0.1-0.6); Monocytes Percent Auto 8.5 % (2.6-8.5); Neutrophils Absolute Auto 3.7 K/mm3 (1.3-6.7); Neutrophils Percent Auto 65.9 % (45.5-73.1); Platelet Count Result 162 k/mm3 (150-375); Red Blood Count 3.67 M/mm3 (4.2-5.4); Red Cell Distribution Width 12.1 % (11.5-14.5); White Blood Count 5.6 K/mm3 (4.5-10.0)
[2024-01-25 06:35] LABS: Anion Gap 5 mmol/L (4-12); Blood Urea Nitrogen 21 mg/dL (7-17); Calcium 9.6 mg/dL (8.4-10.2); Carbon Dioxide 27 mmol/L (22-30); Chloride 106 mmol/L (98-107); Estimated CRCL calculation 51 ml/min; Estimated Glomerular Filt Rate > 60; Glucose 99 mg/dL (65-110); Potassium 3.4 mmol/L (3.4-5.0); Sodium 138 mmol/L (137-145)
--- NOTE | 2024-01-25 07:31 | P.PNAN_ITS ---
Anes - Prog Note Post-Op Date/Time: 01/25/24 07:31 Cardiovascular status: normal Respiratory status: normal Airway patency: baseline Mental status: baseline Post-Op hydration status: normal Vital Signs: Last Vital Signs Temp 96.9 F L 01/25/24 03:39 Pulse 72 01/25/24 03:39 Resp 18 01/25/24 03:39 BP 122/64 01/25/24 03:39 Pulse Ox 100 01/25/24 03:39 O2 Del Method Room Air 01/24/24 20:50 O2 Flow Rate 2 01/24/24 14:25 Pain Score (VAS): 0/10 I/O: Intake & Output 01/24/24 01/24/24 01/25/24 15:59 23:59 07:59 Intake Total 50 530 50 Balance 50 530 50 Laboratory Tests 01/25/24 05:33 01/25/24 05:33 01/24/24 01/24/24 01/24/24 08:29 08:40 13:07 WBC RBC Hgb Hct MCV MCH MCHC RDW Plt Count MPV Immature Gran % (Auto) Neut % (Auto) Lymph % (Auto) [place] % (Auto) Eos % (Auto) Baso % (Auto) Lymph # (Auto) [place] # (Auto) Eos # (Auto) Baso # (Auto) Abs Immat Gran (auto) Absolute Neuts (auto) Absolute Nucleated RBC Nucleated RBC % Sodium Potassium Chloride Carbon Dioxide Anion Gap BUN Creatinine Estim Creat Clear Calc Estimated GFR Glucose POC Capillary Glucose 133 H 137 H Calcium Blood Type A Positive Antibody Screen Negative 01/25/24 05:33 WBC 5.6 RBC 3.67 L Hgb 11.0 L Hct 33.7 L MCV 91.8 MCH 30.0 MCHC 32.6 RDW 12.1 Plt Count 162 MPV 9.4 Immature Gran % (Auto) 0.2 Neut % (Auto) 65.9 Lymph % (Auto) 21.0 [place] % (Auto) 8.5 Eos % (Auto) 4.0 Baso % (Auto) 0.4 Lymph # (Auto) 1.17 [place] # (Auto) 0.5 Eos # (Auto) 0.2 Baso # (Auto) 0.0 Abs Immat Gran (auto) 0.01 Absolute Neuts (auto) 3.7 Absolute Nucleated RBC 0.000 Nucleated RBC % 0.0 Sodium 138 Potassium 3.4 Chloride 106 Carbon Dioxide 27 Anion Gap 5 BUN 21 H Creatinine 0.90 Estim Creat Clear Calc 51 Estimated GFR > 60 Glucose 99 POC Capillary Glucose Calcium 9.6 Blood Type Antibody Screen Post-procedural complaints: none Patient Feedback: Patient satisfied with anesthetic care.
[2024-01-25 08:00] VITALS: BP 104/56; PULSE 78; RESP 18; TEMP 36.4; O2SAT 96
[2024-01-25] MEDS: SENNA/DOCUSATE SODIUM TABLET 2 TAB PO (08:28)
[2024-01-25] MEDS: predniSONE 5 MG TABLET PO (08:28)
[2024-01-25] MEDS: polyethylene glycoL 3350 17 GM POWD.PACK PO (08:28)
[2024-01-25] MEDS: amLODIPine BESYLATE 5 MG TABLET PO (08:28)
[2024-01-25] MEDS: ALPRAZolam (*CRX) 0.5 MG TABLET 1 MG PO (08:28)
[2024-01-25 08:29] VITALS: O2SAT 98
[2024-01-25] MEDS: ASPIRIN 81 MG ENTERIC TABLET PO (08:29)
[2024-01-25] MEDS: TRIAMTERENE 37.5 MG/HCTZ 25 MG (MAXZIDE) TABLET 1 TAB PO (08:29)
[2024-01-25] MEDS: VENLAFAXINE HCL XR 75 MG CAP.ER.24H PO (08:29)
[2024-01-25] MEDS: traMADol HCL (*CRX) 50 MG TABLET PO (08:29)
[2024-01-25] MEDS: metFORMIN HCL 500 MG TABLET PO (08:29)
[2024-01-25] MEDS: ROSUVASTATIN 5 MG TABLET PO (08:30)
[2024-01-25 08:34] VITALS: PULSE 82
[2024-01-25] MEDS: atenoloL 50 MG TABLET PO (08:34)
--- NOTE | 2024-01-25 08:36 | PM.DS ---
DS: Admitting Diagnosis Discharge Date 01/25/24 Admitting Diagnosis Knee arthritis. DS: Discharge Diagnosis Discharge Diagnosis (1) Status post total right knee replacement: Code(s): Z96.651 - Presence of right artificial knee joint Status: Acute Assessment and Plan: Postop day 1: Right total knee arthroplasty. Patient tolerated procedure well. No complications. Pain manageable with pain medication. No numbness or tingling. Excellent quad function. We had a lengthy discussion regarding postoperative wound care, limitations, expectations, and exercises. Patient shows good understanding. She has had initial physical therapy and is tolerating it well. DVT prophylaxis: 81 mg baby aspirin b.i.d. for 14 days. Pain medication: Percocet. Prednisone. Patient has followup appointment with Dr. Pichardo in 3 weeks. DS: Summary Hospital Course Reason for hospitalization: Total knee arthroplasty Hospital Course: Patient tolerated procedure well. Has had initial PT/OT. No complications. Pain well managed. Status at Discharge Functional status at discharge: uses cane/walker Overall status at discharge: patient is progressing back to baseline Time Spent with Patient Time attestation: Total time spent providing and/or coordinating discharge services: Exam Narrative: Normal weight 69 y/o female. Resting comfortably in chair. No acute distress. A&O x3. Wearing compression socks bilaterally. Dressing intact with no drainage. Mild swelling. No ecchymosis. No erythema. No hematoma. Good early range of motion. Excellent quad function nontender. Neurologic status intact. No varicosities. Distal pulses palpable. DS: Data Data Completed and Pending Labs on day of discharge: Labs from last 24 hours 01/25/24 01/24/24 01/24/24 05:33 13:07 08:40 WBC 5.6 RBC 3.67 L Hgb 11.0 L Hct 33.7 L MCV 91.8 MCH 30.0 MCHC 32.6 RDW 12.1 Plt Count 162 MPV 9.4 Immature Gran % (Auto) 0.2 Neut % (Auto) 65.9 Lymph % (Auto) 21.0 [place] % (Auto) 8.5 Eos % (Auto) 4.0 Baso % (Auto) 0.4 Lymph # (Auto) 1.17 [place] # (Auto) 0.5 Eos # (Auto) 0.2 Baso # (Auto) 0.0 Abs Immat Gran (auto) 0.01 Absolute Neuts (auto) 3.7 Absolute Nucleated RBC 0.000 Nucleated RBC % 0.0 Sodium 138 Potassium 3.4 Chloride 106 Carbon Dioxide 27 Anion Gap 5 BUN 21 H Creatinine 0.90 Estim Creat Clear Calc 51 Estimated GFR > 60 Glucose 99 POC Capillary Glucose 137 H 133 H Calcium 9.6 Blood Type Antibody Screen 01/24/24 08:29 WBC RBC Hgb Hct MCV MCH MCHC RDW Plt Count MPV Immature Gran % (Auto) Neut % (Auto) Lymph % (Auto) [place] % (Auto) Eos % (Auto) Baso % (Auto) Lymph # (Auto) [place] # (Auto) Eos # (Auto) Baso # (Auto) Abs Immat Gran (auto) Absolute Neuts (auto) Absolute Nucleated RBC Nucleated RBC % Sodium Potassium Chloride Carbon Dioxide Anion Gap BUN Creatinine Estim Creat Clear Calc Estimated GFR Glucose POC Capillary Glucose Calcium Blood Type A Positive Antibody Screen Negative Discharge Plan Discharge Patient Disposition: Home, Self-Care Discharge Instructions: See green instruction sheets Stand Alone Forms: General Discharge Instructions Follow-up/Referrals: Laura Kennedy PA [Physician [employer]] - Discharge Medications: New prednisone 5 mg tablet 5 mg PO DAILY 21 Days Qty: 21 0RF oxycodone-acetaminophen 5-325 mg tablet 1 - 2 tablet PO Q4-6H MDD 6 PRN (Reason: pain) Qty: 30 0RF Continued alprazolam 1 mg Tablet 1 mg PO BID amlodipine 5 mg Tablet 5 mg PO BID aspirin [Adult Low Dose Aspirin] 81 mg Tablet,Delayed Release (Dr/Ec) 81 mg PO DAILY triamterene-hydrochlorothiazid 37.5-25 mg Capsule 1 cap PO QAM atenolol 50 mg Tablet 50 mg PO QAM rosuvastatin 5 mg Tabl
[2024-01-25 12:00] VITALS: BP 101/56; PULSE 82; RESP 18; TEMP 36.3; O2SAT 92
--- NOTE | 2024-01-25 13:00 | PC.NURSE ---
green sheets given to patient, d/c papers reviewed, all questions answered. iv out.
== END 2024-01-25 13:35 | disposition home or self-care (01) ==
LOC: ANHSURGERY 07:49 → ANH3MEDSUR 14:46
PROVIDERS: Physician Assistant Surgical; PCP Family Medicine; Visit Provider Orthopaedic Surgery
PROC: (CPT 27447; principal; 2024-01-24 10:00)
DX: M17.11 Unilateral primary osteoarthritis, right knee (principal); G89.18 Other acute postprocedural pain; I10 Essential (primary) hypertension; E78.5 Hyperlipidemia, unspecified; Z79.82 Long term (current) use of aspirin; Z79.84 Long term (current) use of oral hypoglycemic drugs; Z79.51 Long term (current) use of inhaled steroids; Z87.891 Personal history of nicotine dependence
CPT/HCPCS: 27447; 64447; 36415; 73560; 80048; 82948; 85025; 86850; 86900; 86901; 97110; 97116; 97161; 97165; 97530; 97535; A9270; C1713; C1776; J0171; J0690; J1170; J1885; J2250; J2270; J2405; J2704; J2795; J3010; J7120; J7512

== ENCOUNTER 2024-11-10 09:14 | Outpatient (CLI) | payer MEDICARE, OTHER, SELFPAY ==
--- NOTE | ~2024-11-10 | MM_ITS ---
EXAMINATION: MM screening boom BI w merary HISTORY: Screening TECHNIQUE: Craniocaudal and mediolateral oblique 3-D tomosynthesis images were obtained and synthetic 2-D images were generated. CAD analysis was submitted and interpreted. COMPARISON: Comparison to multiple prior studies sequentially, with oldest reviewed study dated 11/12. BREAST PARENCHYMAL COMPOSITION: Not dense: There are scattered areas of fibroglandular density. FINDINGS: There is no evidence of suspicious mass, calcification, or architectural distortion to sugg est malignancy in either breast. There has been no suspicious interval change. IMPRESSION: 1. No mammographic evidence of malignancy. 2. Recommend routine screening mammography in one year. BI-RADS Category 1: Negative Reviewed, dictated and finalized at location B. IAL EDUCATION TEACHER
--- OUTSIDE RECORDS SUMMARY | 2024-11-10 09:43 | XMS_ITS | Encounter Summary ---
Author Organization [facility] Care Team Providers Care Radiology Technologist Name Role Phone Mirian Bentley MD Primary Care Provider [phone] Haily Vanegas MD Unavailable [phone] Encounter Details Date Type Department Care Team (Latest Contact Info) Description 03/18/2018 Orders Only [facility] ProviderRyan MD [address] [place] [id number] Social History Tobacco Use Types Packs/Day Years Used Date Smoking Tobacco: Former Cigarettes Q uit: 10/01/1982 Alcohol Use Standard Drinks/Week Comments Yes 0 (1 standard drink = 0.6 oz pur e alcohol) Comments Unknown Sex and Gender Information Value Date Recorded Sex Assigned at Not on file Legal Sex Female 7:17 PM [employer] Gender Identity Not on file Sexual Orientation Not on file documented as of this encounter Plan of Treatment Not on file documented as of this encounter Procedures Procedure Name Priority Date/Time Associated Diagnosis Comments SCAN - LABS 03/19/2018 12:00 AM CDT documented in this encounter Results * SCAN - LABS (03/19/2018 12:00 AM CDT) Narrative 03/19/2018 12:00 AM CDT Ordered by an unspecified provider. us Historical Provider Final Res ult documented in this encounter Visit Diagnoses Not on filedocumented in this encounter Care Teams Radiology Technologist Relationship Specialty Start Date End Date Mirian Bentley MD [address] [address] PCP - General 10/17/12 Haily Vanegas MD [address] [facility] [address] [address] Tester Operator Cardiovascular Disease 05/06/19 documented as of this encounter
--- OUTSIDE RECORDS SUMMARY | 2024-11-10 09:43 | XMS_ITS | Referral Summary ---
Author Organization [facility] Address [address] [place] [address] Care Team Providers Care Mule Operator Name Role Phone Mirian Bentley MD Primary Care Provider [phone] Haily Vanegas MD Unavailable [phone] Encounters Date Type Department Care Team Description 08/11/2024 Telephone [facility] Cardiology [address] [facility] [address] [address] Iain Calderón MD Med Refill from Last 3 Months Allergies Active Allergy Reactions Criticality Noted Date Comments Atenolol Hives Medium 05/06/2019 Ciprofloxacin-Dexamethason e Flushing (skin) Low 07/26/2016 flushing Codeine Other (See comments) Low 01/02/2024 Lisinopril Rash Medium 05/06/2019 Lisinopril-Hydrochlorothia zide Rash Medium 05/06/2019 rash Metoprolol Rash Medium 11/07/2012 rash rash Metoprolol Succinate Other (See comments) Low 11/07 Medications ALPRAZolam (XANAX) 0.25 mg tablet Take 1 tablet (0.25 mg total) by mouth 2 (two) times a day Active cholecalciferol (VITAMIN D-3) 25 mcg (1,000 unit) tablet Take 1 tablet (1,000 Units total) by mouth daily Active omega 1-npe-pti-fish oil 1,000 mg (120 mg-180 mg) capsule Take 3 capsules (3,000 mg total) by mouth daily Active aspirin 81 mg chewable tablet Take 1 tablet (81 mg total) by mouth daily Active clobetasol (TEMOVATE) 0.05 % cream 0.05 % 2 (two) times a day Active rosuvastatin (CRESTOR) 5 mg tablet Take 1 tablet (5 mg total) by mouth daily Active triamterene-hyd roCHLOROthiazid e (MAXZIDE,DYAZID E) 37.5-25 mg per tablet/capsule Take 1 tablet/capsul e by mouth daily Active venlafaxine XR (EFFEXOR-XR) 75 mg 24 hr capsule Take 1 capsule (75 mg total) by mouth daily Active estradioL (ESTRACE) 0.01 % (0.1 mg/gram) vaginal cream Insert 1 g into the vagina 3 (three) times a day as needed Three times a week Active Lactobac no.41/Bifidobac t no.7 (PROBIOTIC-10 ORAL) Take by mouth daily Active metFORMIN (GLUCOPHAGE) 500 mg tablet Take 1 tablet (500 mg total) by mouth 2 (two) times a day with meals Active senna-docusate (PERICOLACE) 8.6-50 mg Take 1 tablet by mouth daily Active Breztri Aerosphere 160-9-4.8 mcg/actuation inhaler Inhale 2 puffs 2 (two) times a day 11/02/2023 Active lancets (OneTouch Delica Plus Lancet) 33 gauge [facility] OneTouch Delica Plus Lancet 33 gauge Active blood glucose diagnostic (OneTouch Verio test strips) strip OneTouch Verio test strips Active blood-glucose meter (OneTouch Verio Reflect Meter) [facility] OneTouch Verio Reflect Meter Active atenoloL (TENORMIN) 50 mg tablet Take 1 tablet (50 mg total) by mouth daily 90 tablet 3 07/29/2024 Active amLODIPine (NORVASC) 5 mg tablet Take 1 tablet (5 mg total) by mouth 2 (two) times a day 180 tablet 3 08/11/2024 Active Active Problems Problem Noted Date Diagnosed Date Family history of ASCVD (art eriosclerotic cardiovascular disease) 05/23/2024 Hiatal hernia 05/14/2024 Hyperglycemia 05/14/2024 Diabetes mellitus type II, non insulin dependent (CMS/[facility]) 08/10/2021 Hypertriglyceridemia 08/10/2021 Chronic anxiety 03/15/2021 Recurrent herpes simplex 01/18/2021 Recurrent urinary tract infection 01/18/2021 Transient insomnia 12/16/2020 Atypical chest pain 12/05/2020 Type 2 diabetes mellitus without complication (C MS/[facility]) 02/16/2020 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 Headache 08/18/2019 Seasonal allergic rhinitis 08/18/2019 Glenoid labrum tear 05/21/2019 Feeling stressed out 01/28/2018 Muscle pain 01/28/2018 Feeling stressed out 01/28/2018 Mixed hyperlipidemia 12/18/2017 Edema of lower extremity 12/17/2017 Pain of right heel 12/17/2017 Photodermatitis due to sun 07/16/2017 Itching 06/26/2017 Psoriasis 10/19/2016 Chest pain 10/04/2016 Fluttering heart 10/04/2016 Hypertension 10/04/2016 Anxiety 10/04/2016 Gastroesophageal reflux disease 10/04/2016 Rash 04/07/2016 Overview (05/14/2024): Location: None;Severity: Moderate;Progress: Stable;Added By: Arleth Estrada;Add to Current Problems: YES Dysuria 03/10/2016 Overview (05/14/2024): Location: None;Severity: Moderate;Progress: Stable;Added By: Mirian Bentley;Add to Current Problems: YES Candidal vulvovaginitis 11/28/2015 Overview (05/14/2024): Location: None;Severity: Moderate;Progress: Stable;Added By: Arleth Estrada;Add to Current Problems: YES Vaginitis and vulvovaginitis 08/11/2015 Abnormal glucose level 08/10/2015 Overview (05/14/2024): Location: None;Severity: Moderate;Progress: Stable;Added By: Rebekah Ackerman;Add to Current Problems: NO Urinary urgency 08/04/2015 Overview (05/14/2024): Location: None;Severity: Moderate;Progress: Stable;Added By: Valeria Chu;Add to Current Problems: YES Acute cystitis 08/02/2015 Overview (05/14/2024): Location: None;Severity: Moderate;Progress: Stable;Added By: Debo Haynes;Add to Current Problems: NO Vitamin D deficiency 07/14/2015 Vitamin D deficiency 07/14/2015 Overview (05/14/2024): Location: None;Severity: Moderate;Progress: Stable;Added By: Mirian Bentley;Add to Current Problems: YES Verruca vulgaris 07/12/2015 Overview (05/14/2024): Location: None;Severity: Moderate;Progress: Stable;Added By: Paulina Guzman;Add to Current Problems: YES Nocturia 07/12/2015 Overview (05/14/2024): Location: None;Severity: Moderate;Progress: Stable;Added By: Mirian Bentley;Add to Current Problems: YES Cough 07/13/2014 Overview (05/14/2024): Location: None;Severity: Moderate;Progress: Stable;Added By: Arleth Estrada;Add to Current Problems: YES Indigestion 01/24/2013 Overview (05/14/2024): Location: None;Severity: Moderate;Progress: Stable;Added By: Debo Haynes;Add to Current Problems: NO Benign essential hypertension 11/06/2012 Overview (05/14/2024): Location: None;Severity: Moderate;Progress: Stable;Added By: Paulina Guzman;Add to Current Problems: NO Dyspnea 10/13/2012 Overview (05/14/2024): Location: None;Severity: Moderate;Progress: Stable;Added By: Suha Wiggins;Add to Current Problems: NO Elevated blood-pressure read ing without diagnosis of hypertension 10/13/2012 Overview (05/14/2024): Location: None;Severity: Moderate;Progress: Stable;Added By: Valeria Chu;Add to Current Problems: NO Precordial pain 10/13/2012 Overview (05/14/2024): Location: None;Severity: Moderate;Progress: Stable;Added By: Mirian Bentley;Add to Current Problems: NO Resolved Problems Problem Noted Date Diagnosed Date Resolved Date Lipids abnormal 10/04/2016 11/17/2019 Benign essential hypertension 11/07/2012 11/17/2019 Social History Tobacco Use Types Packs/Day Years Used Date Smoking Tobacco: Former Smokeless Tobacco: Never Tobacco Cessation:Counseling Given: Not Answered Alcohol Use Standard Drinks/Week Comments Yes 0 (1 standard drink = 0.6 oz pur e alcohol) Personal Safety Answer Date Recorded Getting School Help Needed Not on file 09/14 Comments Unknown Sex and Gender Information Value Date Recorded Sex Assigned at Not on file Legal Sex 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 Gender Identity Not on file Sexual Orientation Not on file Last Filed Vital Signs Vital Sign Reading Time Taken Comments Blood Pressure 118/60 05/23/2024 11:28 AM CDT Pulse 62 05/23/2024 11:28 AM CDT Temperature 36.2 C (97.1 F) 08/10/2021 9:12 AM ETCH OPERATOR [employer]ICONDUCTOR WAFERS Respiratory Rate - - Oxygen Saturation 98% 05/23/2024 11:28 AM CDT Inhaled Oxygen Concentration - - Weight 68.9 kg (152 lb) 05/23/2024 11:28 AM CDT Height 160 cm (5' 3 ) 05/23/2024 11:28 AM CDT Body Mass Index 26.93 05/23/2024 11:28 AM CDT Plan of Treatment Not on file Procedures Procedure Name Priority Date/Time Associated Diagnosis Comments COMPREHENSIVE METABOLIC PANEL Routine 05/09/2024 7:07 AM CDT LIPID PANEL Routine 05/09/2024 7:07 AM CDT from Last 3 Months or Most Recently Relevant to Health Maintenance Results * (ABNORMAL) Lipid panel (05/09/2024 7:07 AM CDT) Cholesterol 120 <200 mg/dL [facility] HDL 46(L) > OR = 50 mg/dL [facility] Triglycerides 114 <150 mg/dL [facility] LDL 54 mg/dL (calc) [facility] Comment: Reference range: <100 Desirable range <100 mg/dL for primary prevention; <70 mg/dL for patients with CHD or diabetic patients with > or = 2 CHD risk factors. LDL-C is now calculated using the Marshall calculation, which is a validated novel method providing better accuracy than the Friedewald equation in the estimation of LDL-C. Nando SCOTT et al. PRATEEK. 2013;310(19): 2713-0280 (http://education.EyeEm/faq/MMN478) Chol/HDL ratio 2.6 <5.0 (calc) [facility] Non-HDL, (LDL+VLDL) 74 <130 mg/dL (calc) [facility] Comment: For patients with diabetes plus 1 major ASCVD risk factor, treating to a non-HDL-C goal of <100 mg/dL (LDL-C of <70 mg/dL) is considered a therapeutic option. 05/09/2024 7:07 AM CDT 05/09/2024 7:08 AM CDT Narrative [facility] - 05/11/2024 1:14 PM CDT FASTING:YES FASTING: YES us Iain Calderón MD LAB BLOOD ORDERABLES Final Result [facility] [id number] [id number] * (ABNORMAL) Comprehensive metabolic panel (05/09/2024 7:07 AM CDT) Glucose 101(H) 65 - 99 mg/dL [facility] Comment: Fasting reference interval For someone without known diabetes, a glucose value between 100 and 125 mg/dL is consistent with prediabetes and should be confirmed with a follow-up test. BUN 17 7 - 25 mg/dL [facility] Creatinine 0.98 0.50 - 1.05 mg/dL [facility] eGFR 63 > OR = 60 mL/min/1.7 3m2 [facility] BUN/creat ratio SEE NOTE: 6 - 22 (calc) [facility] Comment: Not Reported: BUN and Creatinine are within reference range. Sodium 140 135 - 146 mmol/L [facility] Potassium, pl 4.0 3.5 - 5.3 mmol/L [facility] Chloride 102 98 - 110 mmol/L [facility] CO2 30 20 - 32 mmol/L [facility] Calcium 9.7 8.6 - 10.4 mg/dL [facility] Protein, sr 6.0(L) 6.1 - 8.1 g/dL [facility] Albumin 4.0 3.6 - 5.1 g/dL [facility] GLOBULIN 2.0 1.9 - 3.7 g/dL (calc) [facility] Alb/glob ratio 2.0 1.0 - 2.5 (calc) [facility] Bilirubin, total 0.6 0.2 - 1.2 mg/dL [facility] Alk phos 49 37 - 153 U/L [facility] AST 14 10 - 35 U/L [facility] ALT (SGPT) 12 6 - 29 U/L [facility] 05/09/2024 7:07 AM CDT 05/09/2024 7:08 AM CDT Narrative [facility] - 05/11/2024 1:14 PM CDT FASTING:YES FASTING: YES us Iain Calderón MD LAB BLOOD ORDERABLES Final Result [facility] [address] [address] [phone] from Last 3 Months or Most Recently Relevant to Health Maintenance Insurance MEDICARE [facility] MEDICARE [facility] Care Teams Mule Operator Relationship Specialty Start Date End Date Mirian Bentley MD [address] [address] PCP - General 10/17/12 Haily Vanegas MD [address] [facility] [address] [address] Ordering Machine Operator Cardiovascular Disease 05/06/19
--- OUTSIDE RECORDS SUMMARY | 2024-11-10 09:43 | XMS_ITS | Encounter Summary ---
Author Organization [facility] Care Team Providers Care Assistant Boiler Operator Name Role Phone Mirian Bentley MD Primary Care Provider [phone] Haily Vanegas MD Unavailable [phone] Encounter Details Date Type Department Care Team (Latest Contact Info) Description 07/17/2017 Orders Only [facility] CLINCONV ProviderRyna MD [address] [place] [address] Social History Tobacco Use Types Packs/Day Years Used Date Smoking Tobacco: Former Cigarettes Q uit: 10/01/1982 Alcohol Use Standard Drinks/Week Comments Yes 0 (1 standard drink = 0.6 oz pur e alcohol) Comments Unknown Sex and Gender Information Value Date Recorded Sex Assigned at Not on file 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 us Historical Provider Final Res ult documented in this encounter Visit Diagnoses Not on filedocumented in this encounter Care Teams Assistant Boiler Operator Relationship Specialty Start Date End Date Mirian Bentley MD [address] [address] PCP - General 10/17/12 Haily Vanegas MD [address] [facility] [address] [address] School Administrator Cardiovascular Disease 05/06/19 documented as of this encounter
--- OUTSIDE RECORDS SUMMARY | 2024-11-10 09:43 | XMS_ITS | Continuity of Care Document ---
Author Organization [facility] Address [address] [place] [address] Phone Care Team Providers Care Dredge Worker Name Role Phone Brendon Sal MD Unavailable Unavailable Medications Medication Instructions Dosage Effective Dates (start - stop) Status Comments cetirizine 10 mg tablet take 1 tablet by oral route twice daily - Active aspirin 81 mg chewable tablet - Active FISH OIL (unknown strength) Not Available - Active D3-2000 2,000 unit capsule - Active famciclovir 500 mg tablet - Active esomeprazole magnesium 40 mg capsule,delayed release take 2 capsule by oral route every day 80 MG - Active nabumetone 500 mg tablet take 1 tablet by oral route 2 times every day 500 MG - Active nitrofurantoin macrocrystal 50 mg capsule - Active propranolol 20 mg tablet take 1 tablet by oral route 2 times every day 20 MG - Active losartan 100 mg tablet take 1 tablet by oral route every day 100 MG - Active alprazolam 0.5 mg tablet take 1 tablet by oral route 2 times every day 0.5 MG - Active estradiol 0.06 mg/24 hr weekly transdermal patch apply 1 patch by transdermal route every week 1.00 patch - Active ESTRACE (unknown strength) insert by vaginal route 3 times every week Not Available - Active clobetasol 0.05 % topical cream apply by topical route 2 times every day a thin layer to the affected area(s) 0.00 - Active Advance Directives Directive Yes / No Effective Date File Name No Information Encounters Encounter Description Practice Location Reason(s) For Visit Diagnoses Date Provider Providers Copied on Encounter [facility], [address], [place], [place], [id number], [place] tel:[phone] [facility] [address] [address] [facility], [facility] [address], [place], [place], [id number] , [place]. tel: [phone] Referring Provider: Mirian Bentley, [address], [place], [address]. tel:[phone] [facility], [address], [place], [place], [id number], [place] tel:[phone] [facility]PIRATORY ABNORM NECVOCAL CORD DISEASE NECCHRONIC RHINITISCOUGH [address] [address] [facility], [facility] [address], [place], [place], [id number] , [place]. tel: [phone] Family History Family Member Type Diagnosis Age At Onset No Information Payers Payer name Insurance type Covered libertarian ID Ayana ward(s) [employer] [facility] CI [id number] Social History Type Description Quantity Date Captured Comments Alcohol Use Details Unknown Caffeine Use Details Unknown Tobacco Use Status No Information Smoking Status Never smoker Sex Female Vital Signs Date / Time: Height Weight BMI Pulse Rate Blood Pressure Temperature Respiratory Rate Body Surface Area Head Circumference Head Circ. Percentile Wt./Wes. Percentile BMI percentile Pulse Ox Inhaled Ox 2:49 PM 63.00 in 88.904 kg (196.00 lbs) 34.7 2 kg/m eter (2) 80 /min 174/93 mm[Hg] Chief Complaint And Reason For Visit No Information Reason For Referral Reason For Referral No Information History Of Present Illness Encounter Date Complaint History Of Prese nt Illness No Information Functional Status Date Functional Assessmen t No Information Medications Administered Medication Instructions Dosage Effective Dates (start - stop) Status Comments No Drug Therapy Prescribed Instructions Date Instruction Additional Infor mation No Information Assessments Type Assessment Date No Information Patient Care Teams Name Effective Dates (start - stop) Status Members No Information
--- OUTSIDE RECORDS SUMMARY | 2024-11-10 09:43 | XMS_ITS | Clinical Summary ---
Author Organization [facility] Address [facility] [place] [address] Care Team Providers Care Optical Engineer Name Role Phone Mirian Bentley MD Primary Care Provider [phone] Haily Vanegas MD Unavailable [phone] Allergies Active Allergy Reactions Criticality Noted Date [...] Units total) by mouth daily Active omega 5-kqg-glf-fish oil 1,000 mg (120 mg-180 mg) capsule [...] lancets (OneTouch Delica Plus Lancet) 33 [place] [facility] OneTouch Delica Plus Lancet 33 gauge Active blood glucose diagnostic (OneTouch Verio test strips) strip OneTouch Verio test strips Active blood-glucose meter (OneTouch Verio Reflect Meter) [facility] OneTouch Verio Reflect Meter Active atenoloL (TENORMIN) [...] Diabetes mellitus type II, non insulin dependent (CMS/HCC) 08/10/2021 Hypertriglyceridemia 08/10/2021 Chronic anxiety 03/15/2021 Recurrent herpes simplex 01/18/2021 Recurrent urinary tract infection 01/18/2021 Transient insomnia 12/16/2020 Atypical chest pain 12/05/2020 Type 2 diabetes mellitus without complication (C MS/HCC) 02/16/2020 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 [...] Overview (05/14/2024): Location: None;Severity: Moderate;Progress: Stable;Added By: Arelth Estrada;Add to Current Problems: YES Vaginitis and [...] 10/04/2016 11/17/2019 Benign essential hypertension 11/07/2012 11/17/2019 Encounters Date Type Department Care Team Description 08/11/2024 Telephone [facility] Cardiology [address] [facility] [address] [place] [address] Iain Calderón MD Med Refill from Last 3 Months Surgical History Surgery Date Site/Laterality Comments HYSTERECTOMY Hysterectomy BLADDER SUSPENSION SHOULDER SURGERY 07/29/2019 Left REPLACEMENT TOTAL KNEE 01/24/2024 Right Medical History Medical History Date Comments Gastroesophageal reflux disease GERD Chest pain Fluttering heart Hypertension Lipids abnormal Anxiety Hyperlipidemia Family History Medical History Relation Name Comments Coronary artery disease Father David nary Artery Bypass Graft; Diabetes Father Hypertension Father Hypertension; Diabetes Mother Heart disease Mother Hypertension Mother Hypertension; Mental illness Mother Stent Mother Coronary Stent Placement; Hypertension Sister 2 Hypertension; Relation Name Status Comments Father Alive Mother Alive Sister 1 Alive Sister 2 Social History Tobacco Use Types Packs/Day Years [...] on file Legal Sex Female 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 Gender Identity Not on file Sexual Orientation Not on file Obstetrics History Last Filed Vital Signs Vital Sign Reading Time Taken Comments Blood Pressure 118/60 05/23/2024 11:28 AM CDT Pulse 62 05/23/2024 11:28 AM CDT Temperature 36.2 C (97.1 F) 08/10/2021 9:12 AM FISHERIES ENFORCEMENT OFFICER Respiratory Rate - - Oxygen Saturation 98% 05/23/2024 11:28 AM CDT Inhaled Oxygen Concentration - - Weight 68.9 kg (152 lb) 05/23/2024 11:28 AM CDT Height 160 cm (5' 3 ) 05/23/2024 11:28 AM CDT Body Mass Index 26.93 05/23/2024 11:28 AM CDT Plan of Treatment Health Maintenance Due Date Last Done Comments Albumin Creatinine Ratio, Urine 1957 Colon Cancer Screening-Colonoscopy 1957 Depression Screening 1957 Fall Risk Assessment 1957 Hemoglobin A1C 1957 Hepatitis C Screening 1957 Osteoporosis Screening-Bone Density Scan 1957 Dilated Eye Exam 1957 Foot Exam 1957 Hepatitis B Screening 1975 Well Visit 65+ 2022 Pneumococcal vaccine 65+ (2 of 2 - PPSV23 or PCV20) 01/24/2022 11/29/2021 Covid-19 Vaccine (4 - 2023-2 5 season) 2024 09/29/2021, 12/31/2020, 12/07/2020 Influenza Vaccine (#1) 2024 , 10/10/2022, 08/05/2021, Additional history exists Breast Cancer Screening-Mammogram 11/07/2024 11/07/2023, 06/28/2022, 04/27/2021, Additional history exists Lipid Panel 05/09/2025 05/09/2024 eGFR 05/09/2025 05/09/2024 DTaP/Tdap/Td Vaccine (2 - Td or Tdap) 11/30/2031 11/29/2021 Zoster Vaccine Completed 09/28/2020, 07/30/2020 Procedures Procedure Name Priority Date/Time Associated Diagnosis [...] equation in the estimation of LDL-C. Nando SS et al. PRATEEK. 2013;310(49): 2196-2952 (http://education.Micell Technologies/faq/GDL482) Chol/HDL ratio 2.6 <5.0 (calc) [facility] MD LAB BLOOD ORDERABLES Final Result [facility] [address] [place] [address] * (ABNORMAL) Comprehensive metabolic panel (05/09/2024 7:07 AM CDT) Pathologist [facility] Glucose 101(H) 65 - 99 mg/dL [facility] [...] LAB BLOOD ORDERABLES Final Result [facility] [address] [phone] from Last 3 Months or Most Recently Relevant to Health Maintenance Insurance MEDICARE [place] [facility] [place] MEDICARE [place] Care Teams Optical Engineer Relationship Specialty Start Date End Date Mirian Bentley MD [address] [address] PCP - General 10/17/12 Haily Vanegas MD [address] [facility] [address] [address] Optical Engineer Cardiovascular Disease 05/06/19
--- OUTSIDE RECORDS SUMMARY | 2024-11-10 09:43 | XMS_ITS | Referral Summary ---
Author Organization [facility] Address [address] [facility] [place] [address] Care Team Providers Care Program Technician Name Role Phone Unavailable Primary Care Provider Unavailabl e Source Comments [facility],non-owned Affiliates and Associated Physician Practices is amultiple site organization consisting of ambulatory clinics and hospital sitesin [place], [place], [place] and [place]. This disclosure is being madepursuant to the Care Everywhere program and may not contain all information available regarding this patient. Last updated 18.[facility] Allergies No known active allergies Immunizations Name Administration Dates Next Due INFLUENZA VACCINE, QUADR. (F LUZONE; FLULAVAL; FLUARIX; AFLURIA QUADRIVALENT; 6MO+), 0.5 ML (IIV4) 07/30/2020 Social History Tobacco Use Types Packs/Day Years Used Date Smoking Tobacco: Never Assessed Sex and Gender Information Value Date Recorded Sex Assigned at Not on file Gender Identity Not on file Sexual Orientation Not on file Plan of Treatment Not on file
--- OUTSIDE RECORDS SUMMARY | 2024-11-10 09:43 | XMS_ITS | Data Portability ---
Author Organization [facility] SHAHIDAAmparo Saeed Address [address] [place] [address] Care Team Providers Care Explosive Operator Bomb Name Role Phone MIRIAN TOLBERT Primary Care Provider ZINA CHIN Feather Curling Machine Operator Assessment Encounter Date Assessment Date Assessment LastModified by Organization Details LastModified Time 06/19/2023 06/19/2023 she is considering TATOO Not available 06/19/2023 12:14:07 Plan of Treatment Reminders Order Date Submit Date Provider Last Modified By Organization Details Last Modified Time Details Appointments ANY 15 2024 10:30A M Mirian Tolbert MD Not available Not available Not available Lab HbA1c (hemoglob in A1c), blood 2022 023 In-Office Order, Internal Use Only DO Not Attach Compendium DO Not Attach Compendium, Do Not Delete/merge, [id number] 06/19/2023 12:01:53 HbA1c (hemoglob in A1c), blood 2023 024 [facility] In-Office Order, Internal Use Only DO Not Attach Compendium DO Not Attach Compendium, Do Not Delete/merge, [id number] 10/25/2023 14:50:01 HbA1c (hemoglob in A1c), blood 2023 024 ALEXA [facility], [address], [address], [place], [address], 05/10/2024 00:02:34 microalbu min, urine 2023 024 ALEXA In-Office Order, Internal Use Only DO Not Attach Compendium DO Not Attach Compendium, Do Not Delete/merge, [id number] 05/01/2024 17:24:25 urinalysi s, dipstick 2024 025 ALEXA In-Office Order, Internal Use Only DO Not Attach Compendium DO Not Attach Compendium, Do Not Delete/merge, [id number] 11/03/2024 12:55:28 culture, urine 2024 025 ALEXA [facility], [address], [address]za, [place], [address], 11/05/2024 01:15:38 HbA1c (hemoglob in A1c), blood 2024 025 In-Office Order, Internal Use Only DO Not Attach Compendium DO Not Attach Compendium, Do Not Delete/merge, [id number] 11/03/2024 11:57:06 hepatitis C virus Ab, serum 2024 025 [facility], [address], [address]za, [place], [address], 11/03/2024 11:57:06 HIV 1+2 Ab + HIV1 p24 Ag, quantitat tiera immunoass ay, serum 2024 025 [facility], [address], [address]za, [place], [address], 11/03/2024 11:57:06 Referral None recorded. Procedures None recorded. Surgeries None recorded. Imaging XR, chest, 2 view 2023 024 ALEXA Not available 10/26/2023 18:11:44 US, screening for abdominal aortic aneurysm - she is to get her mammogram 11/10/24-- can this test be coordinat ed with that test? 2024 025 [facility] (Im[facility]), [address], [place], [address], 11/04/2024 10:37:23 Medication Orders alprazola m 0.25 mg tablet 2024 025 [facility], [facility], [place], [address], 11/03/2024 11:57:47 Patient TargetsNo targets recorded. Patient Instructions Encounter Date Encounter Id Patient Instructions Last Modified By Organization Details Last Modified Time 12/18/2023 [id number] follow up with clara pace in 4 months-- to have knee joint replaced next month-- pre-op lab testing was reviewed from orthopedist last Hgb A1C was good and FBG was 110 Not available 12/18/2023 11:58:08 05/01/2024 [id number] A healthy lifestyle: care instructions Not available 05/01/2024 14:55:32 11/03/2024 [id number] Medicare Well[place] [facility] Preventive Checklist Not available 11/03/2024 11:57:06 frequent urination: care instructions Not available 11/03/2024 11:57:06 type 2 diabetes: care instructions Not available 11/03/2024 11:57:06 Reason for Referral None Reported. Results Created Date Observation Date Name Description Value Unit Range Abnormal Flag Note LastModifiedBy Organization Detail LastModifiedTime 06/19/2006/19/2023 HbA1c (hemo globi n A1c), blood HbA1c 5.8 Not Available In-Office Order Internal Use Only DO Not Attach Compendium DO Not Attach Compendium, Do Not Delete/merge, [id number] 06/19/2023 09:23:25 10/25/19 24 10/25/2023 HbA1c (hemo globi n A1c), blood HbA1c 5.9 Not Available In-Office Order Internal Use Only DO Not Attach Compendium DO Not Attach Compendium, Do Not Delete/merge, [id number] 10/25/2023 14:42:14 05/01/20 24 05/01/2024 micro album in, urine Microalbumin 0 Not Available In-Of fice Order Internal Use Only DO Not Attach Compendium DO Not Attach Compendium, Do Not Delete/merge, [id number] 05/01/2024 14:48:52 05/09/20 24 05/09/2024 HEMOG LOBIN A1C hemoglobin A1C 6.1 %_of_ total _HGB <5.7 high For someo ne witho ut known diabe godwin, a hemog lobin A1c value betwe en 5.7% and 6.4% is consi stent with predi abete s and shoul d be confi rmed with a follo w-up test. For someo ne with known diabe godwin, a value <7% indic ates that their diabe godwin is well contr olled . A1c targe ts shoul d be indiv idual ized based on durat ion of diabe godwin, age, comor bid condi tions , and other consi derat ions. This assay resul t is consi stent with an incre ased risk of diabe godwin. Curre ntly, no conse nsus exist s regar ding use of hemog lobin A1c for diagn osis of diabe godwin for child dudley. This test was perfo rmed on the [facility] c[facility] platf orm. Effec tive , a farmer e in test platf orms from the [facility] to the [facility] c[facility] may have shift ed HbA1c resul ts shahab red to histo rical resul ts. Based on labor atory valid ation testi ng condu cted at [facility] , the [facility] platf orm relat tiera to the [facility] platf orm had an avera ge incre ase in HbA1c value of < or = 0.3%. This diffe rence is withi n accep andriy varia bilit y estab lishe d by the [facility] [employer] hemog lobin Stand ardiz ation Progr am. Note that not all indiv idual s will have had a shift in their resul ts and direc t shahab rison s betwe en histo rical and curre nt resul ts for testi ng condu cted on diffe rent platf orms is not recom tone d. Not Available [employer] [facility] [address], [place], [address], 05/10/2024 00:02:34 11/03/19 25 11/05/2024 CULTU RE, URINE , ROUTI NE culture, urine, routine SEE NOTE CULTU RE, URINE , ROUTI NE Micro Numbe r: [id number] Test Statu s: Final Speci men Sourc e: Urine Speci men Quali ty: Adequ ate Resul t: No Growt h Not Available [facility] [address] , [place], [address], 11/05/2024 01:15:38 11/03/19 25 11/03/2024 urina lysis , dipst ick Leukocytes Negati ve Not Available In-Office Order Internal Use Only DO Not Attach Compendium DO Not Attach Compendium, Do Not Delete/merge, 11/03/2024 11:51:56 11/03/19 25 11/03/2024 urina lysis , dipst ick Nitrite negati ve Not Available In-Office Order Internal Use Only DO Not Attach Compendium DO Not Attach Compendium, Do Not Delete/merge, 11/03/2024 11:51:56 11/03/19 25 11/03/2024 urina lysis , dipst ick Urobilinogen 1 Not Available In-Of fice Order Internal Use Only DO Not Attach Compendium DO Not Attach Compendium, Do Not Delete/merge, 11/03/2024 11:51:56 11/03/19 25 11/03/2024 urina lysis , dipst ick Protein Negati ve Not Available In-Office Order Internal Use Only DO Not Attach Compendium DO Not Attach Compendium, Do Not Delete/merge, 11/03/2024 11:51:56 11/03/19 25 11/03/2024 urina lysis , dipst ick pH 6.5 Not Available In-Office Order Internal Use Only DO Not Attach Compendium DO Not Attach Compendium, Do Not Delete/merge, 11/03/2024 11:51:56 11/03/19 25 11/03/2024 urina lysis , dipst ick Blood Negati ve Not Available In-Office Order Internal Use Only DO Not Attach Compendium DO Not Attach Compendium, Do Not Delete/merge, 11/03/2024 11:51:56 11/03/19 25 11/03/2024 urina lysis , dipst ick Specific [place] 1.015 Not Available In-Off ice Order Internal Use Only DO Not Attach Compendium DO Not Attach Compendium, Do Not Delete/merge, 11/03/2024 11:51:56 11/03/19 25 11/03/2024 urina lysis , dipst ick Ketone Negati ve Not Available In-Office Order Internal Use Only DO Not Attach Compendium DO Not Attach Compendium, Do Not Delete/merge, 11/03/2024 11:51:56 11/03/19 25 11/03/2024 urina lysis , dipst ick Bilirubin Negati ve Not Available In-Office Order Internal Use Only DO Not Attach Compendium DO Not Attach Compendium, Do Not Delete/merge, 11/03/2024 11:51:56 11/03/19 25 11/03/2024 urina lysis , dipst ick Glucose Negati ve Not Available In-Office Order Internal Use Only DO Not Attach Compendium DO Not Attach Compendium, Do Not Delete/merge, 11/03/2024 11:51:56 11/03/19 25 11/03/2024 urina lysis , dipst ick Appearance Clear Not Available In-Offi ce Order Internal Use Only DO Not Attach Compendium DO Not Attach Compendium, Do Not Delete/merge, 11/03/2024 11:51:56 11/03/19 25 11/03/2024 urina lysis , dipst ick Color Yellow Not Available In-Office Order Internal Use Only DO Not Attach Compendium DO Not Attach Compendium, Do Not Delete/merge, 11/03/2024 11:51:56 11/03/19 25 11/03/2024 HbA1c (hemo globi n A1c), blood HbA1c 6.0 Not Available In-Office Order Internal Use Only DO Not Attach Compendium DO Not Attach Compendium, Do Not Delete/merge, 11/03/2024 11:03:57 08/15/20 23 08/06/2023 XR, knee, 4 or more view No observ ation record ed. jordan Not Available 2022 12:14:55 10/26/19 24 10/25/2023 XR, chest , 2 view No observ ation record ed. [facility] [address] [facility] [facility] , [place], [address], 11/01/2023 16:06:35 11/07/19 24 11/06/2023 MAMMO , scree newton, tomos ynthe sis, bilat eral No observ ation record ed. [address], [place], [address], 11/08/2023 12:30:01 12/05/19 24 12/03/2023 CT, lower leg, w/o contr ast No observ ation record ed. [address], [place], [address], 12/18/2023 11:58:39 12/18/19 24 12/03/2023 elect lizett nichols am No observ ation record ed. [address], [place], [address], 12/18/2023 14:04:41 01/24/20 24 01/24/2024 XR, knee, 3 view No observ ation record ed. [address], [place], [address], 01/24/2024 16:44:31 03/28/20 24 03/12/2024 XR, knee, 3 view No observ ation record ed. Not Available 2023 16:02:16 Result Notes None recorded. Problems Name Problem SNOMED Code Status Onset Date Resolution Date Notes Provider Name and Address Organization Details Recorded Time Pain in right heel 78905270603 52555 Active 2017 Mirian Tolbert MD Attn: Accounting ,[address] [facility], [place], [address] , [facility] 21:00:30 Edema of lower extremit y 114842219 Active 2017 Mirian Tolbert MD Attn: Accounting ,[address] [facility], [place], [address] , [place] [facility] 2 21:00:14 Mixed hyperlip idemia 542017714 Active 2017 Mirian Tolbert MD Attn: Accounting ,[address] [place], [address] , [place] [facility] 21:00:25 Feeling stressed 360193631 Completed 201707/19/2020 Mirian Tolbert MD Attn: Accounting ,[address] [facility], [place], [address] , [place] [facility] 0 18:09:25 Muscle pain 25564215 Completed 201707/19/2020 Mirian Tolbert MD Attn: Accounting ,[address] [place], [address] , [place] [facility] 0 18:09:33 Glenoid labrum tear 462133116 Active 2018 Mirian Tolbert MD Attn: Accounting ,[address] [place], [address] , [place] [facility] 21:00:19 Seasonal allergic rhinitis 131015273 Active 2018 Mirian Tolbert MD Attn: Accounting ,[address] [place], [address] , [place] [facility] 21:00:41 Headache 77461935 Active 2018 Mirian Tolbert MD Attn: Accounting ,[address] [place], [address] , [place] [facility] 21:00:22 Oliveira's neuroma of right foot 98848335420 9108 Active 2019 Mirian Tolbert MD Attn: Accounting ,[address] [place], [address] , [place] [facility] 4 14:28:59 Type 2 diabetes mellitus without complica tion 668617026 Active 2019 Mirian Tolbert MD Attn: Accounting ,[address] [facility], [place], [address] , [place] [facility] 4 14:28:59 Atypical chest pain 602871074 Active 2020 Mirian Tolbert MD Attn: Accounting ,[address] [facility], [place], [address] , [place] [facility] 5 11:37:30 Hiatal hernia 41866445 Active Mirian Tolbert MD Attn: Accounting ,[address] [facility], [place], [address] , [place] [facility] 5 11:37:30 Transien t insomnia 639267242 Active 2020 Mirian Tolbert MD Attn: Accounting ,[address] [place], [address] , [place] - [facility] 4 14:28:59 Recurren t herpes simplex 03732399 Active 2020 Mirian Tolbert MD Attn: Accounting ,[address] [place], [address] , [place] - [facility] 4 14:28:59 Recurren t urinary tract infectio n 890240285 Active 2020 Mirian Tolbert MD Attn: Accounting ,[address] [place], [address] , [place] [facility] 4 14:28:59 Chronic anxiety 563850946 Active 2020 Mirian Tolbert MD Attn: Accounting ,[address] [place], [address] , [place] [facility] 4 14:28:59 Essentia l hyperten tyrel 37249757 Completed 07/16/2017 Mirian Tolbert MD Attn: Accounting ,[address] [place], [address] , [place] - [facility] 7 12:18:48 Gastroes ophageal reflux disease 766578159 Active Mirian Tolbert MD Attn: Accounting ,[address] [place], [address] , [facility] 5 11:37:30 Hypergly cemia 27945041 Completed 12/17/2017 Mirian Tolbert MD Attn: Accounting ,[address] [facility], [place], [address] , [facility] 8 12:51:54 Precordi al pain 73263482 Completed 201211/07/2012 Location : None;Sev erity: Moderate ;Progres s: Stable;A dded By: Mirian Tolbert;Add to Current Problems : NO Not Available [facility] 7 11:23:55 Mononeur itis of lower limb Completed 201311/20/2013 Location : None;Sev erity: Moderate ;Progres s: Stable;A dded By: Mirian Tolbert;Add to Current Problems : YES Not Available [facility] 7 11:23:55 Nocturia 446268855 Completed 201409/10/2015 Location : None;Sev erity: Moderate ;Progres s: Stable;A dded By: Mirian Tolbert;Add to Current Problems : YES Not Available [facility] 7 11:23:55 Dysuria 18627608 Completed 201505/09/2016 Location : None;Sev erity: Moderate ;Progres s: Stable;A dded By: Mirian Tolbert;Add to Current Problems : YES Not Available [facility] 7 11:23:55 Vitamin D deficien cy 06465706 Active 2014 Location : None;Sev erity: Moderate ;Progres s: Stable;A dded By: Mirian Tolbert;Add to Current Problems : YES Not Available [facility] 7 11:23:55 Dyspnea 964236737 Completed 201211/07/2012 Location : None;Sev erity: Moderate ;Progres s: Stable;A dded By: Suha Wiggins;Add to Current Problems : NO Not Available [facility] 7 11:23:56 Indigest ion 337145078 Completed 201202/24/2013 Location : None;Sev erity: Moderate ;Progres s: Stable;A dded By: Debo Haynes;Add to Current Problems : NO Not Available [facility] 7 11:23:56 Benign essentia l hyperten tyerl 1956574 Active 2012 Location : None;Sev erity: Moderate ;Progres s: Stable;A dded By: Paulina Guzman;Add to Current Problems : NO Mirian Tolbert MD Attn: Accounting ,[address], [place], [address] [place] [address] , [facility] 5 11:37:30 Verruca vulgaris 77474054 Completed 201408/12/2015 Location : None;Sev erity: Moderate ;Progres s: Stable;A dded By: Paulina Guzman;Add to Current Problems : YES Not Available [facility] 7 11:23:56 Elevated blood-pr essure reading without diagnosi s of hyperten tyrel 420106328 Completed 201211/14/2012 Location : None;Sev erity: Moderate ;Progres s: Stable;A dded By: Valeria Chu; Add to Current Problems : NO Not Available [facility] 7 11:23:56 Essentia l hyperten tyrel 66435406 Completed 201310/20/2013 Location : None;Sev erity: Moderate ;Progres s: Stable;A dded By: Valeria Chu; Add to Current Problems : NO Mirian Tolbert MD Attn: Accounting ,[address] [facility], [place], [place], [address] [place] [address] , [facility] 7 12:18:48 Urgent desire to urinate 33511618 Completed 201412/17/2017 Location : None;Sev erity: Moderate ;Progres s: Stable;A dded By: Valeria Chu; Add to Current Problems : YES Mirian Tolbert MD Attn: Accounting ,[address] [place], [address] , [facility] 8 12:51:58 Cough 04867314 Completed 201308/13/2014 Location : None;Sev erity: Moderate ;Progres s: Stable;A dded By: Arleth Frank i;Amairani dd to Current Problems : YES Not Available [facility] 7 11:23:57 Candidal vulvovag initis 70373323 Completed 201512/30/2015 Location : None;Sev erity: Moderate ;Progres s: Stable;A dded By: Arleth Frank i;A dd to Current Problems : YES Not Available [facility] 7 11:23:57 Eruption 903144559 Completed 201505/08/2016 Location : None;Sev erity: Moderate ;Progres s: Stable;A dded By: Arleth Frank i;A dd to Current Problems : YES Not Available [facility] 7 11:23:57 Vaginiti s and vulvovag initis Active 2014 Location : None;Sev erity: Moderate ;Progres s: Stable;A dded By: Arleth Frank i;A dd to Current Problems : YES Mirian Tolbert MD Attn: Accounting ,[address] [place], [address] , [facility] 4 14:28:59 Glucose level outside referenc e range 644882980 Completed 201407/19/2020 Location : None;Sev erity: Moderate ;Progres s: Stable;A dded By: Rebekah Ackerman;Add to Current Problems : NO Mirian Tolbert MD Attn: Accounting ,[address] [place], [address] , [facility] 0 18:09:18 Acute cystitis 75863273 Completed 201409/03/2015 Location : None;Sev erity: Moderate ;Progres s: Stable;A dded By: Debo Haynes;Add to Current Problems : NO Not Available [facility] 7 11:23:57 Anxiety 62606408 Active 2016 Mirian Tolbert MD Attn: Accounting ,[address] [place], [address] , [facility] 5 11:37:30 Photoder matitis due to sun Active 2016 Mirian Tolbert MD Attn: Accounting ,[address] [facility], [place], [address] , [facility] 4 14:28:59 Problem Notes None recorded. Procedures Surgical History Date Name Laterality Status Provider Name and Address Organization Details Recorded Time 01/24/20 24 total knee replacement completed Mirian Tolbert MD Attn: Accounting,[address] [facility], [place], [address], [facility] 02/08/2024 17:36:41 07/28/20 19 arthroplasty of left shoulder completed Mirian Tolbert MD Attn: Accounting,[address] [facility], [place], [address], [facility] 08/05/2019 19:03:13 03/26/20 17 Shave Biopsy completed Mirian Tolbert MD Attn: Accounting,[address] [facility], [place], [address], [facility] 03/26/2017 15:54:03 10/01/19 04 Hysterectomy completed Paulina Riojas [place] [facility] 07/10/2016 11:22:31 Imaging Results Imaging Date Name Status LastModified by Organization Details LastModified Time 08/06/2023 XR, knee, 4 or more view completed [facility] Information not available 08/22/2023 12:14:55 10/25/2023 XR, chest, 2 view completed [address], [address], 11/01/2023 16:06:35 11/06/2023 MAMMO, screening, tomosynthesis, bilateral completed [address] [place] [address], [address], 11/08/2023 12:30:01 12/03/2023 CT, lower leg, w/o contrast completed [address] [place] [address], [address], 12/18/2023 11:58:39 12/03/2023 electrocardiogram completed [place] [id number] [facility] [address], [place], [address], 12/18/2023 14:04:41 01/24/2024 XR, knee, 3 view completed [email or web address] [address] [facility] [address], [place], [address], 01/24/2024 16:44:31 03/12/2024 XR, knee, 3 view completed [email or web address] Informat ion not available 03/28/2024 16:02:16 Procedure Notes None recorded. Medical Equipment None Reported. Allergies Allergen ID Allergen Name Allergen Category Reaction Reaction Severity Criticality Documentation Date Start Date Code Code System Note Provider Name and Address Organization Details Recorded Time 51324 codeine medicatio n Not available Not available Not available 07/10/2016 2670 RxNorm Not Available Not Available Not Available 24680 metoprolo l Not available Not available Not available Not available 07/10/2016 6918 RxNorm succi keith Not Available Not Available Not Available 01730 Ciprodex medicatio n flushing Not available Not available 07/28/20162015 26579 0 RxNorm Not Available Not Available Not Available 67942 metoprolo l succinate medicatio n Not available Not available Not available 10/04/20162012 44033 4 RxNorm React ion: tongu e disor rehan;S everi ty: Moder ate; Comme nt: Aller gy Type: Adver se React ion; Not Available Not Available Not Available 53412 lisinopri l medicatio n rash Not available Not available 10/06/2016 49287 RxNorm Not Available Not Available Not Available 39892 atenolol medicatio n hives Not available Not available 10/23/2016 1202 RxNorm Not Available Not Available Not Available Medications Name Sig Start Date Stop Date Status Note LastModified by Organization Details LastModified Time amoxicill in 500 mg capsule TAKE 4 CAPSULES BY MOUTH 1 HOUR PRIOR TO APPOINTM ENT active Not Available Not Available No t Available metformin 500 mg tablet TAKE 1 TABLET TWICE DAILY WITH MEALS active Not Available Not Available No t Available terconazo le 0.4 % vaginal cream 07/10 completed Not Available Not Available Not Available venlafaxi ne ER 37.5 mg capsule,e xtended release 24 hr TAKE 1 CAPSULE BY MOUTH DAILY. 08/05 completed Not Available Not Available Not Available venlafaxi ne ER 75 mg capsule,e xtended release 24 hr TAKE 1 CAPSULE DAILY active Not Available Not Available No t Available nitrofura ntoin macrocrys killian 50 mg capsule TAKE 1 CAPSULE DAILY 03/28 completed Not Available Not Available Not Available trazodone 50 mg tablet TAKE 1 TABLET BY MOUTH EVERY DAY 08/05 completed Not Available Not Available Not Available fluconazo le 150 mg tablet Take 1 tablet(s ) by mouth once 07/10 completed Not Available Not Available Not Available metoprolo l succinate ER 50 mg tablet,ex tended release 24 hr Take 1 tablet(s ) by mouth daily 11/07 completed RxNorm: 697654;A jayson Substitu tion: True Not Available Not Available Not Available cimetidin e 400 mg tablet TAKE 1 TABLET BY MOUTH TWICE DAILY 08/05 completed Not Available Not Available Not Available promethaz ine 6.25 mg/5 mL oral syrup 10/07 completed Not Available Not Available Not Available sucralfat e 1 gram tablet TAKE 1 TABLET BY MOUTH EVERY 6 HOURS NEEDED 07/19 completed Not Available Not Available Not Available prednison e 5 mg tablet 5 MG ORALLY DAILY FOR 3 WEEKS 05/01 completed Not Available Not Available Not Available clobetaso l 0.05 % topical cream APPLY TO RASH ON ELBOW TWICE DAILY NEEDED FOR ITCHING 03/28 completed Not Available Not Available Not Available nizatidin e 300 mg capsule one daily 02/15 completed Not Available Not Available Not Available amlodipin e 5 mg tablet TAKE 1 TABLET TWICE A DAY active Not Available Not Available No t Available sulfameth oxazole 800 mg-trimet hoprim 160 mg tablet 1 po bid x 7 days 07/10 completed Not Available Not Available Not Available omeprazol e 40 mg capsule,d elayed release active Not Available Not Available Not Available aspirin 81 mg tablet,de layed release Take 1 tablet(s ) by mouth qam 2012 active RxNorm: 207815;A llow Substitu tion: True Not Available Not Available Not Available tramadol 50 mg tablet Take 1 tablet twice a day by oral route as needed for 15 days. 02/15 completed Not Available Not Available Not Available meloxicam 7.5 mg tablet TAKE 1 TABLET BY MOUTH TWICE DAILY WITH MEALS active Not Available Not Available No t Available oxycodone -acetamin ophen 5 mg-325 mg tablet 1 - 2 TABLET ORALLY EVERY 4 - 6 HOURS NEEDED FOR PAIN, MAX DAILY DOSE: 6 11/03 completed Not Available Not Available Not Available alprazola m 0.5 mg tablet take 1/2 to 1 tablet by mouth every morning and 1/2- 2 tablets by mouth every night as needed 06/19 completed Not Available Not Available Not Available Estrace Vaginal 0.1 mg/g cream apply 1gm to vulva at hs 08/07 completed dose change-- failed three days a week;RxN orm: 098802;A llow Substitu tion: True Not Available Not Available Not Available amoxicill in 875 mg tablet Take 1 tablet(s ) by mouth q12h for 10 days 08/22 completed RxNorm: 198187;A llow Substitu tion: True Not Available Not Available Not Available alprazola m 0.25 mg tablet Take 1 tablet twice a day by oral route as needed. 2024 active Not Available Not Available Not Avai lable famotidin e 20 mg tablet TAKE 1 TABLET BY MOUTH TWICE DAILY active Not Available Not Available No t Available famciclov ir 500 mg tablet TAKE 1 TABLET BY MOUTH DAILY 08/05 completed Not Available Not Available Not Available amlodipin e 10 mg tablet Take 1 tablet every day by oral route for 90 days. 06/[address] Vanegas Not Available Not Available Not Available esomepraz ole magnesium 40 mg capsule,d elayed release TAKE 1 CAPSULE BY MOUTH EVERY DAY 12/17 completed Not Available Not Available Not Available triamcino lone acetonide 0.1 % topical ointment Apply thin film to vulva Bid 07/28 completed Not Available Not Available Not Available ranitidin e 150 mg tablet Take 1 tablet twice a day by oral route. 03/28 completed changed to famotidi ne Not Available Not Available Not Available lisinopri l 10 mg tablet Take 1 tab daily 12/12 completed RxNorm: 498845;A maiw Substitu tion: True Not Available Not Available Not Available metoprolo l tartrate 50 mg tablet 10/23 completed Not Available Not Available Not Available triamtere ne 37.5 mg-hydroc hlorothia zide 25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 when next refill is needed for the ALPRAZOLAM -- you report not needed today Benign ess ential hypertension 7698356 I10 the BP is OK and your weight control will help the BP and diabetes Oliveira's n euroma of right foot [id number] 17193 G57.61 You are taking nabumetone for this problem-- Since your foot is stable-- I advise to decrease to one a day-- if no flare of foot pain-- the after 2 weeks-- OK to stop. This med is a culprit with regard to the stomach complaints Type 2 kevin betes mellitus without complication 866933869 E11.9 blood testing will be needed in July-- cont to avoid binging with high caloric sweets and cont with daily walking and weight control [id number] Mirian Tolbert MD [facility] [address] [place] [address] 07/19/2020 13:29:15 07/19/2020 19:14:00 Benign essential hypertension 6750676 I10 the BP is OK and your weight control will help the BP and diabetes Type 2 kevin betes mellitus without complication 184258099 E11.9 blood testing was done in July-- cont to avoid binging with high caloric sweets and cont with daily walking and weight control-- last Hgb A1c was OK- keep below 7-- we will recheck in 6 months Vitamin D deficiency 347 97858 E55.9 check labs in August and reports to Dr Vanegas Administra tion of influenza vaccine 77543981 Z23 routine annual update of vaccines sent Mixed hyperlipidemia 267 450100 E78.2 check labs with results to Dr Vanegas Long-term drug therapy 135444485 Z79.899 lab order sent to patient and results to Dr Vanegas Influenza vaccine needed [id number] 106 Z28.3 Immunization due 0976992 08 Z28.3 Bereavement 95118319 Z63 .4 discussed and referral declined [id number] Mirian Tolbert MD [facility] [address] [place] [address] 12/06/2020 13:01:01 12/06/2020 15:41:31 Gastroesophageal reflux disease 704139264 K21.9 cont weight loss and follow with low fat diet and avoid spicy foods and eating late at night Atypical chest pain 1025 15342 R07.89 given FH of heart disease and your complaint- - I will get chest xray and ecg-- the symptoms were not typical for heart related issues-- seemed to be related to GERD since better after emesis-- order sent to [facility]-- patient will call [facility] to verify that they can perform these tests today [id number] Mirian Tolbert MD [facility] [address] [place] [address] 12/10/2020 14:56:03 12/10/2020 16:31:18 Auditory hallucinations 51590925 R44.0 proper sleep-- go outside for 20 min a day ( unless risk to self to do that)-- safety with going shopping or other activity-- but OK to go and do some out of house activity. INcrease VENLAFAXIN E and follow up in 1-2 weeks. Check for metabolic causes. NOn focal neuro exam [id number] Mirian Tolbert MD [facility] [address] [facility] [address] [facility] [place] [address] 12/16/2020 15:03:12 12/16/2020 16:46:34 Transient insomnia 255074618 F51.02 decrease the dose of XANAX to one tab twice a day with intent of weaning to lowest effective dose. Take trazadone- - off work this week and next week. Note for work. Continue to get good sleep hygeine Non-verbal auditory hallucinations 353412963 R44.0 Depressive disorder 3548 9007 F32.9 [id number] Mirian Tolbert MD [facility] [address] [facility] [address] [facility] [place] [address] 01/18/2021 09:03:03 01/19/2021 12:09:17 Type 2 diabetes mellitus without complication 811737769 E11.9 blood testing was done in July-- cont to avoid binging with high caloric sweets and cont with daily walking and weight control-- last Hgb A1c was OK at 6.4 - keep below 7-- we will recheck in 6 months Benign ess ential hypertension 2785440 I10 the BP is OK and your weight control will help the BP and diabetes Anxiety 66984341 F41.9 use as needed for the anxiety-st ress reduction advised--y ou are feeling better and you will need to see me in 5 months-- have pharmacy to request a refill or call when next refill is needed for the ALPRAZOLAM -- you report not needed today Edema of l ower extremity 238874169 R60.0 cont the diuretic for the edema and the salt avoidance Transient insomnia 87356 2008 F51.02 Continue to get good sleep hygeine and trazadone Recurrent urinary tract infection 126449312 N39.0 Recurrent herpes simplex 12431228 B00.9 Gastroesop hageal reflux disease 500957738 K21.9 she is advised to decrease the dose of esomeprazo le and follow with low fat diet and avoid spicy foods and eating late at night-- I advised that she may be able to stop CIMETIDINE completely -- she reports she is unable to reach the GI original prescriber for refill. [id number] Mirian Tolbert MD [facility] [address] [facility] [place] [address] 08/05/2021 09:30:44 08/08/2021 09:10:37 Type 2 diabetes mellitus without complication 022054487 E11.9 blood testing was done last August 2020-- cont to avoid binging with high caloric sweets and cont with daily walking and weight control- advised goal for Hgb A1c is to keep below 7-- we will recheck today Benign ess ential hypertension 5985415 I10 the BP is OK and your weight control will help the BP and diabetes Gastroesop hageal reflux disease 199542191 K21.9 Long-term drug therapy 811699212 Z79.899 Administra tion of influenza vaccine 40792748 Z23 routine annual update of vaccines sent Disorder of ear 95641436 H93.93 [id number] Mirian Tolbert MD [facility] [address] [place] [address] 11/29/2021 09:52:00 11/30/2021 14:40:42 Mixed hyperlipidemia 832618198 E78.[address] Vanegas in December or January 2022 Type 2 kevin betes mellitus without complication 793798111 E11.9 start farxiga- cont other meds-- this will assist the weight control issues and lower glucosenot ed at goal for Hgb A1C Constipation 90459070 K5 9.00 miralax was not tolerated- - she is now taking BENEFIBER daily and encouraged to continue. Has upcoming GI appt.to visit with Dr Corral on December 14 Benign ess ential hypertension 0489201 I10 the BP is OK and your weight control will help the BP and diabetes Gastroesop hageal reflux disease 772734056 K21.9 doing better with GERD-- no new orders Mixed anxi ety and depressive disorder 899328432 F41.8 declined mental health referral as vanessa prescott decrease the alprazolam to 1/2 am and 1 in pm for next 3 months until follow up Administra tion of diphtheria, pertussis, and tetanus vaccine 933099987 Z23 updated vaccine Administra tion of pneumococcal vaccine 58656013 Z23 update vaccine [id number] Mirian Tolbert MD [facility] [address] [place] [address] 03/28/2022 09:26:41 03/29/2022 10:12:31 Type 2 diabetes mellitus without complication 800489786 E11.9 did not tolerate the farxiga- cont other meds-- continue the weight control and lower glucose controlnot ed she was at goal for Hgb A1C with A1C of ' 6.0 ' today Benign ess ential hypertension 1630027 I10 the BP is OK and your weight control will help the BP and diabetes Recurrent urinary tract infection 175283134 N39.0 we will attempt to stop the nitrofuran toin and use the estrogen cream three times a week as prevention strtegy at this time to lower the chance of resistance Chronic anxiety 03538993 9 F41.9 taper the dose of alprazolam to 1/2 tab BID as tolerated- - no refill needed today per patient [id number] Mirian Tolbert MD [facility] [address] [place] [address] 10/10/2022 09:37:18 10/10/2022 14:44:37 Chronic anxiety 109584828 F41.9 she is tapering the dose of alprazolam to 1/2 tab BID as tolerated- - no refill needed today -- she will call the pharmacy to see ifadvised COUNSELING to deal wtih her worry-- she was [facility] of [facility] Type 2 kevin betes mellitus without complication 356636214 E11.9 did not tolerate the farxiga- cont other meds-- continue the weight control and lower glucose controlnot ed she was at goal for Hgb A1C with A1C to be checked Mixed hyperlipidemia 267 290135 E78.2 lab testing is needed and will go to lab in [place] -- she will get done Benign ess ential hypertension 8736232 I10 the BP is OK and your weight control will help the BP and diabetes Administra tion of influenza vaccine 91371749 Z23 routine annual update of vaccines sent Administra tion of pneumococcal vaccine 22076080 Z23 update vaccine for pneumonia Long-term drug therapy 070377542 Z79.899 will check liver enzyme today [id number] Mirian Tolbert MD [facility] [address] [facility] [place] [address] 06/19/2023 10:40:15 06/20/2023 09:18:39 Type 2 diabetes mellitus without complication 665180349 E11.9 she will need to go in Oct for her annual eye exam and will ask provider to send report Screening for malignant neoplasm of breast 579378919 Z12.39 no order is needed and she will schedule when due Strain of thoracic region 31160011 S29.019A offered PT and declined Pain of ri ght knee joint 0405029709 61956 M25.561 discussed and declined PT and advised to cont to walk-- and she will call for XRAY or PT if not controllin g the pain [id number] Mirian Tolbert MD [facility] [address] [place] [address] 10/25/2023 13:31:49 10/26/2023 10:36:32 Pre-surgery evaluation 786824888 Z01.818 Arthritis of right knee 1543355806 264520 M13.861 to have knee replacemen t-- preop clearance pending chest XRAY Low-pitched cornelia 5354 1006 R09.89 advised to get CXR at her earliest convenienc e with no clearance for surgery until results are known-- her O 2 sat is normal and she has no respirator y complaints Type 2 kevin betes mellitus without complication 741938229 E11.9 her Hgb A1C is fine with clearance to be sent after CXR reviewed-- -annual eye exam this month and will ask provider to send report Administra tion of influenza vaccine 59670074 Z23 routine annual update of vaccines for flu given per patient request today [id number] Mirian Tolbert MD [facility] [address] [place] [address] 12/18/2023 11:18:45 12/18/2023 15:23:24 Type 2 diabetes mellitus without complication 934281372 E11.9 her Hgb A1C is fine with clearance to be sent after CXR reviewed-- -annual eye exam this month and will ask provider to send report Arthritis of right knee 4377008254 277586 M13.861 to have knee replacemen t-- preop clearance- - ECG not yet received and patient will call to get a copy for mi [id number] Mirian Tolbert MD [facility] [address] [place] [address] 05/01/2024 13:56:18 05/01/2024 16:30:58 Type 2 diabetes mellitus without complication 437710229 E11.9 her Hgb A1C is fine with clearance to be sent after CXR reviewed-- -annual eye exam this month and will ask provider to send report Overweight 933608903 E66 .3 I do NOT advise any weight loss for this patient [id number] Mirian Tolbert MD [facility] [address] [place] [address] 11/03/2024 10:28:44 11/04/2024 10:37:23 Adult health examination 135326322 Z00.00 Health Risk Assessment collected and reviewedno n smokeradva nce directives arrangedfa ll prevention strategies in place-- using BANNISTERn o dementiahe althy eating / lifestyle discussed Chronic anxiety 88174506 9 F41.9 Type 2 kevin betes mellitus without complication 033676637 E11.9 her Hgb A1C is fine ---annual eye exam to be scheduled HIV screening 982476254 Z11.4 agrees to have screening- - order sent Hepatitis C screening 41 2317518 Z11.59 routine screening planned Increased frequency of urination 130526308 R35.0 will consider MYRBETRIQ daily or GEMTESA daily depending on results and covereage Abdominal aortic aneurysm screening 486136226 Z13.6 routine screening since remote Hx of smoking ( quit 40 years ago) Health Concerns Section Related Observation LastModified by Organization Detai ls LastModified Time None Recorded Concern Status LastModified by Organization Details LastModified Time None Recorded Advance Directives Directive Y: Payers Encounter Date Sequence Insurance Name Policy Number Policy Vargas Covered Member ID Vargas Member ID Guarantor Name 06/19/2023 1 [place] Renita L Arthur [id number] Renita L Arthur 06/19/2023 2 [employer] (MEDICARE SUPPLEMENT) Renita L Arthur [id number] Renita L Arthur 10/25/2023 1 [place] Renita L Arthur [id number] Renita L Arthur 10/25/2023 2 [employer] [place] (MEDICARE SUPPLEMENT) Renita L Arthur [id number] Renita L Arthur 12/18/2023 1 [place] Renita L Arthur [id number] 5 Renita L Arthur 12/18/2023 2 [employer] [place] [place] (MEDICARE SUPPLEMENT) Renita L Arthur [id number] Renita L Arthur 05/01/2024 1 [place] Renita L Arthur [id number] 5 Renita L Arthur 05/01/2024 2 [employer] [place] [place] (MEDICARE SUPPLEMENT) Renita L Arthur [id number] Renita L Arthur 11/03/2024 1 [place] Rentia L Arthur [id number] 5 Renita L Arthur 11/03/2024 2 [employer] (MEDICARE SUPPLEMENT) Renita L Arthur [id number] Renita L Arthur Notes Date Note Type Note Provider Name and Address Organization Details Recorded Time 06/19/2023 text/html Anxiety/Depressi onRepo rted bypatient.Quality:symp toms same Severity:denies suicidal ideations; able to maintain relationships; does not interfere with activities of daily living Onset/Timing:still present Context:major life stressors Modifying Factors:social support; medications as directed Associated Symptoms:denies homicidal ideations; no significant weight gain; no visual/auditory hallucinations; no delusions; no shortness of breath; mood good (depends on the day); no crying spells; no panic; no isolation; sleeping well; appetite good; energy good (depends on the day);weight loss (12 lbs);anxiety;depressio nDiabetes F/UReported bypatient.Review finger sticks:fastin Context:normal range of home blood sugars (in the low 100s); seeing eye doctor regularly; taking aspirin daily; not missing doses of medications; no side effects from medications;not checking feet regularly Associated Symptoms:no weight gain; no dizziness; no sweats; no headaches; no confusion; no increased thirst; no increased appetite;weight loss (12 lbs);increased urination;blurred vision;numbness of feet;calluses on feet Mirian Tolbert MD Attn: [address] [place], [address], [facility] 06/19/2023 12:15:04 10/25/2023 text/html KneeReported bypatient.Location[facility] Quality:aching; deep; constant; worsening Severity:moderate Timing:chronic Alleviating Factors:planning to have right knee replacement-- unsure of date of replacement Aggravating Factors:sitting; standing; lying down; walking; twisting Previous Surgery:none Prior Imaging:x ray Previous Injections:helped temporarily Previous PT:helped a little finger stick 127 this morning Mirian Tolbert MD Attn: Accounting[address] [place], [address], [facility] 10/26/2023 08:06:32 12/18/2023 text/html Diabetes F/URepo rted bypatient.Review finger sticks:fastin Labs:last A1C result: 5.9 (as of 10/25/2023) Context:normal range of home blood sugars (in the low 100s) (120-150); seeing eye doctor regularly; checking feet regularly; taking aspirin daily; not missing doses of medications; no side effects from medications Associated Symptoms:no weight gain; no weight loss; no dizziness; no sweats; no headaches; no confusion; no increased thirst; no increased appetite; no increased urination; no blurred vision; no numbness of feet; no calluses on feetNotes:she is planning to have right knee replacement planned for end of December ( had CT scan an to get her knee replaced with individual knee implant made for her ) Went over medications with pt pt states that she doesnt need any refills on todays visit. Mirian Tolbert MD Attn: Accounting[address] [place], [address], [facility] 12/18/2023 12:00:30 05/01/2024 text/html Diabetes F/URepo rted bypatient.Review finger sticks:fastin Context:seeing eye doctor regularly; checking feet regularly; taking aspirin daily; not missing doses of medications; no side effects from medications Associated Symptoms:no weight gain; no weight loss; no dizziness; no sweats; no headaches; no confusion; no increased thirst; no increased appetite; no increased urination; no blurred vision; no numbness of feet; no calluses on feetNotes:she walks three times a day with her dogsKneeReported bypatient.[facility] Quality:aching (a little due to heat); her ortho recommends prophylactic antibiotic with dental work-- planned for Sept Severity:no pain Timing:cannot identify Context:cannot identify Alleviating Factors:nothing helps; ice (if needed); exercise Associated Symptoms:no weakness; no tingling; no warmth; no ecchymosis; no catching/locking; no popping/clicking; no buckling; no grinding; no instability; no radiation down leg; no drainage; no fever; no chills; no weight loss; no change in bowel/bladder habits;numbness;swelli ng;redness Previous Surgery:surgical procedure: (01/24/24)Notes:BG 136 this amBP 109 systolic this AM the week before May 15 pt will be getting a full panel donept says overall she is doing great since knee surgeryshe is now starting to be able to bend a little Mirian Tolbert MD Attn: Accounting[address] [facility], [place], [address], [facility] 05/01/2024 14:56:35 11/03/2024 text/html MAW 2Reported bypatient.Diet and Nutrition:healthy diet Fracture Risk:no history of fractures; no sudden unexplained fractures Concentration and Memory:no decreased concentrating ability; no memory lapses or loss; does not forget words Speech/Motor difficulties:no speech difficulties; no difficulty expressing formulated concepts; no difficulty with fine manipulative tasks; no difficulty writing/copying; no slowed reaction time; does not knock things over when trying to pick them up Hearing:no loss of hearing Vision:no vision problems Activities of Daily Living:able to bathe with limited or no assistance; able to contol urination and bowels; able to dress with limited or no assistance; able to feed self with limited or no assistance; able to get out of chair or bed with limited or no assistance; able to groom with limited or no assistance; able to toilet with limited or no assistance Instrumental Activities of Daily Living:able to do house work with limited or no assistance; able to grocery shop with limited or no assistance; able to manage medications with limited or no assistance; able to manage money with limited or no assistance; able to prepare meals with limited or no assistance; able to use the phone with limited or no assistance Falls Risk Assessment:no frequent falls while walking; no fall in the past year; no fall since last visit; no dizziness/vertigo Home Safety:no unsafe jan hazzards; no unsafe stairs; working smoke/CO detectors; has hand bars in the bathroom/shower; good lighting in the home pt here for annualpt would like to discuss the med that she was on to help her not urinate as cat reports that she is scheduled to have her mammogram on 11/10cardiologist 12/05 Mirian Tolbert MD Attn: Accounting[address] [facility], [place], [address], [facility] 11/03/2024 12:20:42 OBGyn Episode No OBEpisode recorded.
--- OUTSIDE RECORDS SUMMARY | 2024-11-10 09:43 | XMS_ITS | Encounter Summary ---
Author Organization [facility] Facility Care Team Providers Care Patient Service Technician Pst Name Role Phone Mirian Bentley MD Primary Care Provider [phone] Haily Vanegas MD Unavailable [phone] Encounter Details Date Type Department Care Team (Latest Contact Info) Description 10/04/2016 Orders Only [facility] CLINCONV ProviderRyan MD [address] [place] [address] Social History Tobacco Use Types Packs/Day Years Used Date Smoking Tobacco: Former Cigarettes Q uit: 10/01/1982 Alcohol Use Standard Drinks/Week Comments Yes 0 (1 standard drink = 0.6 oz pur e alcohol) Comments Unknown Sex and Gender Information Value Date Recorded Sex Assigned at Not on file Legal Sex 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 Historical Provider [facility] LOYDA HOFF Final Result documented in this encounter Visit Diagnoses Not on filedocumented in this encounter Care Teams Patient Service Technician Pst Relationship Specialty Start Date End Date Mirian Bentley MD [address] [address] PCP - General 10/17/12 Haily Vanegas MD [address] [facility] [address] [address] Filter Cleaner Cardiovascular Disease 05/06/19 documented as of this encounter
--- OUTSIDE RECORDS SUMMARY | 2024-11-10 09:43 | XMS_ITS | Patient Health Summary ---
Author Organization [facility] Address [address] [facility] [place] [address] Care Team Providers Care Public Area Attendant Name Role Phone Unavailable Primary Care Provider Unavailabl e Note from [facility],non-owned Affiliates and Associated Physician Practices is amultiple site organization consisting of ambulatory clinics and hospital sitesin [place], [place], [place] and [place]. This disclosure is being madepursuant to the Care Everywhere program and may not contain all information available regarding this patient. Last updated 18.[facility] Allergies No known active allergies Immunizations * INFLUENZA VACCINE, QUADR. (FLUZONE; FLULAVAL; FLUARIX; AFLURIA QUADRIVALENT; 6MO+), 0.5 ML (IIV4)(Given 07/30/2020) Social History Tobacco Use Types Packs/Day Years Used Date Smoking Tobacco: Never Assessed Sex and Gender Information Value Date Recorded Sex Assigned at Not on file Gender Identity Not on file Sexual Orientation Not on file
--- OUTSIDE RECORDS SUMMARY | 2024-11-10 09:43 | XMS_ITS | Encounter Summary ---
Author Organization [facility] Facility Care Team Providers Care Sand Miller Name Role Phone Mirian Bentley MD Primary Care Provider [phone] Haily Vanegas MD Unavailable [phone] Encounter Details Date Type Department Care Team (Latest Contact Info) Description 10/19/2016 Orders Only [facility] CLINCONV ProviderRyan MD [address] [place] [address] Social History Tobacco Use Types Packs/Day Years Used Date Smoking Tobacco: Former Cigarettes Q uit: 10/01/1982 Alcohol Use Standard Drinks/Week Comments Yes 0 (1 standard drink = 0.6 oz pur e alcohol) Comments Unknown Sex and Gender Information Value Date Recorded Sex Assigned at Not on file Legal 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 Historical Provider [facility] C[facility] LOYDA HOFF Final Result documented in this encounter Visit Diagnoses Not on filedocumented in this encounter Care Teams Sand Miller Relationship Specialty Start Date End Date Mirian Bentley MD [address] [address] PCP - General 10/17/12 Haily Vanegas MD [address] [facility] [address] [address] Underwriting Sales Representative Cardiovascular Disease 05/06/19 documented as of this encounter
--- OUTSIDE RECORDS SUMMARY | 2024-11-10 09:43 | XMS_ITS | Clinical Summary ---
Author Organization [facility] Address [address] [facility] [place] [address] Care Team Providers Care Mental Health Aide Name Role Phone Unavailable Primary Care Provider Unavailabl e Source Comments [facility],non-owned Affiliates and Associated Physician Practices is amultiple site organization consisting of ambulatory clinics and hospital sitesin [place], [place], [place] and [place]. This disclosure is being madepursuant to the Care Everywhere program and may not contain all information available regarding this patient. Last updated 18.[facility] [employer] Allergies No known active allergies Immunizations Name [...] Orientation Not on file Plan of Treatment Health Maintenance Due Date Last Done Comments BONE DENSITY TESTING 1957 COLOGUARD (AGES 45-75) - COLON CA SCREENING 1957 COLON MONITORING 1957 COLONOSCOPY - COLON CA SCREENING 1957 CT COLONOGRAPHY - COLON CA SCREENING 1957 Colorectal Cancer Screening 1957 FIT - COLON CA SCREENING 1957 FLEX SIG - COLON CA SCREENING 1957 LIPID TESTING 1957 MAMMOGRAM 1957 HEPATITIS C SCREENING 01/06/1975 DTAP/TDAP/TD VACCINES (1 - Tdap) 01/11/1976 PNEUMOCOCCAL VACCINE 50+ (1 of 1 - PCV) 2007 ZOSTER VACCINE (1 of 2) 2007 COVID-19 VACCINE (1 - 2023- season) 2024 INFLUENZA VACCINE (#1) 2024 0, 08/18/2019, 07/08/2018, Additional history exists DEPRESSION SCREENING 10/01/2024 Respiratory Syncytial Virus (RSV) Vaccine Pt: or over 60 yrs (1 - 1-dose 75+ series) 01/11/2032 HEPATITIS B VACCINE Aged Out No longe r eligible based on patient's age to complete this topic HIB VACCINE Aged Out No longer eligi ble based on patient's age to complete this topic HPV VACCINE Aged Out No longer eligi ble based on patient's age to complete this topic MENINGOCOCCAL (Group B) VACCINE Aged Out No longer eligible based on patient's age to complete this topic MENINGOCOCCAL VACCINE Aged Out No celso ronen eligible based on patient's age to complete this topic
--- OUTSIDE RECORDS SUMMARY | 2024-11-10 09:43 | XMS_ITS | Encounter Summary ---
Author Organization [facility] Facility Care Team Providers Care Observer Helper Name Role Phone Mirian Bentley MD Primary Care Provider [phone] Haily Vanegas MD Unavailable [phone] Encounter Details Date Type Department Care Team (Latest Contact Info) Description 10/05/2016 Orders Only [facility] CLINCONV ProviderRyan MD [address] [place] [address] Social History Tobacco Use Types Packs/Day Years Used Date Smoking Tobacco: Former Cigarettes Q uit: 10/01/1982 Alcohol Use Standard Drinks/Week Comments Yes 0 (1 standard drink = 0.6 oz pur e alcohol) Comments Unknown Sex and Gender Information Value Date Recorded Sex Assigned at Not on file Legal Sex Female 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 Historical Provider [facility] LOYDA HOFF Final Result documented in this encounter Visit Diagnoses Not on filedocumented in this encounter Care Teams Observer Helper Relationship Specialty Start Date End Date Mirian Bentley MD [address] [address] PCP - General 10/17/12 Haily Vanegas MD [address] [facility] [address] [address] Planograph Operator Cardiovascular Disease 05/06/19 documented as of this encounter
--- OUTSIDE RECORDS SUMMARY | 2024-11-10 09:43 | XMS_ITS | Encounter Summary ---
Author Organization [facility] Facility Care Team Providers Care Road Hogger Operator Name Role Phone Mirian Bentley MD Primary Care Provider [phone] Haily Vanegas MD Unavailable [phone] Encounter Details Date Type Department Care Team (Latest Contact Info) Description 12/18/2017 Orders Only [facility] CLINCONV ProviderRyan MD [address] [place] [address] Social History Tobacco Use Types Packs/Day Years Used Date Smoking Tobacco: Former Cigarettes Q uit: 10/01/1982 Alcohol Use Standard Drinks/Week Comments Yes 0 (1 standard drink = 0.6 oz pur e alcohol) Comments Unknown Sex and Gender Information Value Date Recorded Sex Assigned at Not on file 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 us Historical Provider Final Res ult documented in this encounter Visit Diagnoses Not on filedocumented in this encounter Care Teams Road Hogger Operator Relationship Specialty Start Date End Date Mirian Bentley MD [address] [address] PCP - General 10/17/12 Haily Vanegas MD [address] [facility] [address] [address] Energy Project Manager Cardiovascular Disease 05/06/19 documented as of this encounter
== END 2024-11-10 09:15 | disposition home or self-care (01) ==
LOC: ANHIMG 09:17
PROVIDERS: PCP Family Medicine; Visit Provider Family Medicine
DX: Z12.31 Encounter for screening mammogram for malignant neoplasm of breast (principal)
CPT/HCPCS: 77063; 77067

== ENCOUNTER 2024-12-03 08:40 | Outpatient (CLI) | payer MEDICARE, OTHER, SELFPAY ==
--- NOTE | ~2024-12-03 | US_ITS ---
EXAMINATION: US aorta [facility] DATE: 12/03/2024 09:42 INDICATION: Encounter for screening for cardiovascular disease TECHNIQUE: Grayscale, color Doppler, and pulsed Doppler images of the aorta and common iliac arteries were obtained. COMPARISON: None. FINDINGS: The proximal aorta measures 2.1 cm. The mid aorta measures 1.8 cm. The distal aorta measures 2.1 cm. The right common iliac artery measures 1.1 cm. The left common iliac artery measures 1.2 cm. IMPRESSION: 1. Normal caliber abdominal aorta. Reviewed, dictated and finalized at location B. STERED RESPIRATORY TECHNICIAN
--- OUTSIDE RECORDS SUMMARY | 2024-12-03 08:57 | XMS_ITS | Clinical Summary ---
Author Organization [facility] Address [address] [facility] [place] [address] Care Team Providers Care Physicians And Surgeons Name Role Phone Unavailable Primary Care Provider Unavailabl e Source Comments [facility],non-owned Affiliates and Associated Physician Practices is amultiple site organization consisting of ambulatory clinics and hospital sitesin [place], [place], [place] and [place]. This disclosure is being madepursuant to the Care Everywhere program and may not contain all information available regarding this patient. Last updated 18.[facility] [employer] Allergies No known active allergies Immunizations Name [...]
--- OUTSIDE RECORDS SUMMARY | 2024-12-03 08:57 | XMS_ITS | Encounter Summary ---
Author Organization [facility] Facility Care Team Providers Care System Integration Engineer Name Role Phone Mirian Bentley MD Primary Care Provider [phone] Haily Vanegas MD Unavailable [phone] Encounter Details Date Type Department Care Team (Latest Contact Info) Description 03/18/2018 Orders Only [facility] CLINCONV ProviderRyan MD [address] [place] [address] Social History Tobacco Use Types Packs/Day Years Used Date Smoking Tobacco: Former Cigarettes Q uit: 10/01/1982 Alcohol Use Standard Drinks/Week Comments Yes 0 (1 standard drink = 0.6 oz pur e alcohol) Comments Unknown Sex and Gender Information Value Date Recorded Sex Assigned at Not on file Legal 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
--- OUTSIDE RECORDS SUMMARY | 2024-12-03 08:57 | XMS_ITS | Encounter Summary ---
Author Organization [facility] Facility Care Team Providers Care Sap Pi Architect Name Role Phone Mirian Bentley MD Primary Care Provider [phone] Haily Vanegas MD Unavailable [phone] Encounter Details Date Type Department Care Team (Latest Contact Info) Description 12/18/2017 Orders Only [facility] CLINCONV ProviderRyan MD [address] [place] [address] Social History Tobacco Use Types Packs/Day Years Used Date Smoking Tobacco: Former Cigarettes Q uit: 10/01/1982 Alcohol Use Standard Drinks/Week Comments Yes 0 (1 standard drink = 0.6 oz pur e alcohol) Comments Unknown Sex and Gender Information Value Date Recorded Sex Assigned at Not on file Legal Sex Female 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
--- OUTSIDE RECORDS SUMMARY | 2024-12-03 08:57 | XMS_ITS | Referral Summary ---
Author Organization [facility] Address [address] [place] [address] Care Team Providers Care Lidar Technician Name Role Phone Unavailable Primary Care Provider Unavailabl e Source Comments [facility],non-owned Affiliates and Associated Physician Practices is amultiple site organization consisting of ambulatory clinics and hospital sitesin [place], [place], [place] and [place]. This disclosure is being madepursuant to the Care Everywhere program and may not contain all information available regarding this patient. Last updated 18.[facility] Allergies No known active allergies Immunizations Name [...] file Plan of Treatment Not on file Insurance Payer Benefit Plan / Group Subscriber ID Effective Dates Phone Address Type [facility] OUT OF STATE PPO [id number] 2017-Present [address] [place] [address] PPO
--- OUTSIDE RECORDS SUMMARY | 2024-12-03 08:57 | XMS_ITS | Data Portability ---
Author Organization [facility] SHAHIDAAmparo Saeed Address [address] [place] [address] Care Team Providers Care Equipment Operator/Laborer Name Role Phone MIRIAN TOLBERT Primary Care Provider ZINA CHIN [employer] Assessment Encounter Date Assessment Date Assessment LastModified by Organization Details LastModified Time 06/19/2023 06/19/2023 she is considering TATOO Not available 06/19/2023 12:14:07 Plan of Treatment Reminders Order Date Submit Date Provider Last Modified By Organization Details Last Modified Time Details Appointments ANY 15 2024 10:30A M Mirian Tolbert MD Not available Not available Not available Lab urinalysi s, dipstick 2024 025 [facility] In-Office Order, Internal Use Only DO Not Attach Compendium DO Not Attach Compendium, Do Not Delete/merge, [id number] 11/03/2024 12:55:28 culture, urine 2024 025 [facility], [address], [place], [address], 11/05/2024 01:15:38 HbA1c (hemoglob in A1c), blood 2024 025 In-Office Order, Internal Use Only DO Not Attach Compendium DO Not Attach Compendium, Do Not Delete/merge, [id number] 11/03/2024 11:57:06 hepatitis C virus Ab, serum 2024 025 [facility], [address], [place], [address], 11/24/2024 03:14:13 HIV 1+2 Ab + HIV1 p24 Ag, quantitat tiera immunoass ay, serum 2024 025 [facility], [address], [place], [address], 11/24/2024 03:14:11 HbA1c (hemoglob in A1c), blood 2023 024 [facility], [address], [place], [address], 05/10/2024 00:02:34 microalbu min, urine 2023 024 [facility] In-Office Order, Internal Use Only DO Not Attach Compendium DO Not Attach Compendium, Do Not Delete/merge, [id number] 05/01/2024 17:24:25 HbA1c (hemoglob in A1c), blood 2023 024 [facility] In-Office Order, Internal Use Only DO Not Attach Compendium DO Not Attach Compendium, Do Not Delete/merge, [id number] 10/25/2023 14:50:01 HbA1c (hemoglob in A1c), blood 2022 023 In-Office Order, Internal Use Only DO Not Attach Compendium DO Not Attach Compendium, Do Not Delete/merge, [id number] 06/19/2023 12:01:53 Referral None recorded. Procedures None recorded. Surgeries None recorded. Imaging US, screening for abdominal aortic aneurysm - she is to get her mammogram 11/10/24-- can this test be coordinat ed with that test? 2024 025 [facility] (Imaging), [address], [place], [address], 11/20/2024 12:10:44 XR, chest, 2 view 2023 024 [facility] Not available 10/26/2023 18:11:44 Medication Orders alprazola m 0.25 mg tablet 2024 025 [facility], [facility], [place], [address], 11/03/2024 11:57:47 Patient TargetsNo targets recorded. Patient Instructions Encounter Date Encounter Id Patient Instructions Last Modified By Organization Details Last Modified Time 12/18/2023 [id number] follow up with clara sanjeev in 4 months-- to have knee joint replaced next month-- pre-op lab testing was reviewed from orthopedist last Hgb A1C was good and FBG was 110 Not available 12/18/2023 11:58:08 05/01/2024 [id number] A healthy lifestyle: care instructions Not available 05/01/2024 14:55:32 11/03/2024 [id number] Medicare [facility] Preventive Checklist Not available 11/03/2024 11:57:06 [...] DO Not Attach Compendium, Do Not Delete/merge, [id number] 06/19/2023 09:23:25 10/25/19 24 10/25/2023 HbA1c (hemo globi n A1c), blood HbA1c 5.9 Not Available In-Office Order Internal Use Only DO Not Attach Compendium DO Not Attach Compendium, Do Not Delete/merge, [id number] 10/25/2023 14:42:14 05/01/20 24 05/01/2024 micro album in, urine Microalbumin 0 Not Available In-Of fice Order Internal Use Only DO Not Attach Compendium DO Not Attach Compendium, Do Not Delete/merge, [id number] 05/01/2024 14:48:52 05/09/20 24 05/09/2024 HEMOG LOBIN [...] valid ation testi ng condu cted at [facility] , the [facility] or[facility] relat tiera [...] is not recom tone d. Not Available [employer] [facility] [id number] , [place], [address], 05/10/2024 00:02:34 11/03/19 25 11/05/2024 CULTU RE, URINE , ROUTI NE culture, urine, routine SEE NOTE CULTU RE, URINE , ROUTI NE Micro Numbe r: [id number] Test Statu s: Final Speci men Sourc e: Urine Speci men Quali ty: Adequ ate Resul t: No Growt h Not Available [facility] [id number] , [place], [address], 11/05/2024 01:15:38 11/03/19 25 11/03/2024 urina lysis [...] 11/03/2024 urina lysis , dipst ick Specific [place] 1.015 Not Available In-Off ice Order Internal [...] more view No observ ation record ed. [facility] Not Available 2022 12:14:55 10/26/19 24 10/25/2023 XR, chest , 2 view No observ ation record ed. [facility] [address] , [place], [address], 11/01/2023 16:06:35 11/07/19 24 11/06/2023 MAMMO , scree newton, tomos ynthe sis, bilat eral No observ ation record ed. [address] [facility], [place], [address], 11/08/2023 12:30:01 12/05/19 24 12/03/2023 CT, lower leg, w/o contr ast No observ ation record ed. [address] [address], [place], [address], 12/18/2023 11:58:39 12/18/19 24 12/03/2023 elect lizett nichols am No observ ation record ed. [address] [address], [place], [address], 12/18/2023 14:04:41 01/24/20 24 01/24/2024 XR, knee, 3 view No observ ation record ed. [address] [address], [place], [address], 01/24/2024 16:44:31 03/28/20 24 03/12/2024 XR, knee, 3 view No observ ation record ed. [facility] Not Available 2023 16:02:16 11/10/19 25 11/10/2024 MAMMO , scree newton, bilat eral No observ ation record ed. [address], [place], [address], 11/11/2024 12:10:11 Result Notes None recorded. Problems Name Problem SNOMED Code Status Onset Date Resolution Date Notes Provider Name and Address Organization Details Recorded Time Pain in right heel 21738430200 48553 Active 2017 Mirian Tolbert MD Attn: Accounting ,[address] [facility], [place], [address] , [place] [facility] 2 21:00:30 Edema of lower extremit y 634199217 Active 2017 Mirian Tolbert MD Attn: Accounting ,[address] [facility], [place], [address] , [place] [facility] 21:00:14 Mixed hyperlip idemia 133521888 Active 2017 Mirian Tolbert MD Attn: Accounting ,[address] [facility], [place], [address] , [place] [facility] 21:00:25 Feeling stressed 436521739 Completed 201707/19/2020 Mirian Tolbert MD Attn: Accounting ,[address] [facility], [place], [address] , [place] [facility] 0 18:09:25 Muscle pain 00436982 Completed 201707/19/2020 Mirian Tolbert MD Attn: Accounting ,[address] [facility], [place], [address] , [place] [facility] 0 18:09:33 Glenoid labrum tear 954210263 Active 2018 Mirian Tolbert MD Attn: Accounting ,[address] [place], [address] , [place] [facility] 21:00:19 Seasonal allergic rhinitis 007847066 Active 2018 Mirian Tolbert MD Attn: Accounting ,[address] [place], [address] , [place] [facility] 21:00:41 Headache 26343827 Active 2018 Mirian Tolbert MD Attn: Accounting ,[address] [place], [address] , [place] [facility] 21:00:22 Oliveira's neuroma of right foot 95621131004 9108 Active 2019 Mirian Tolbert MD Attn: Accounting ,[address] [facility], [place], [address] , [place] [facility] 4 14:28:59 Type 2 diabetes mellitus without complica tion 687556903 Active 2019 Mirian Tolbert MD Attn: Accounting ,[address] [facility], [place], [address] , [place] [facility] 4 14:28:59 Atypical chest pain 347528267 Active 2020 Mirian Tolbert MD Attn: Accounting ,[address] [facility], [place], [address] , [place] [facility] 11:37:30 Hiatal hernia 01508755 Active Mirian Tolbert MD Attn: Accounting ,[address] [facility], [place], [address] , [place] [facility] 11:37:30 Transien t insomnia 516946143 Active 2020 Mirian Tolbert MD Attn: Accounting ,[address] [facility], [place], [address] , [place] [facility] 4 14:28:59 Recurren t herpes simplex 92873036 Active 2020 Mirian Tolbert MD Attn: Accounting ,[address] [place], [address] , [place] [facility] 4 14:28:59 Recurren t urinary tract infectio n 823878173 Active 2020 Mirian Tolbert MD Attn: Accounting ,[address] [facility], [place], [address] , [place] [facility] 4 14:28:59 Chronic anxiety 359903398 Active 2020 Mirian Tolbert MD Attn: Accounting ,[address] [place], [address] , [place] [facility] 4 14:28:59 Essentia l hyperten tyrel 71990839 Completed 07/16/2017 Mirian Tolbert MD Attn: Accounting ,[address], [place], [address] , [facility] 7 12:18:48 Gastroes ophageal reflux disease 800986501 Active Mirian Tolbert MD Attn: Accounting ,[address] [facility], [place], [address] , [facility] 5 11:37:30 Hypergly cemia 07452684 Completed 12/17/2017 Mirian Tolbert MD Attn: Accounting ,[address] [facility], [place], [address] , [facility] 8 12:51:54 Precordi al pain 02295165 Completed 201211/07/2012 Location : None;Sev erity: Moderate ;Progres s: Stable;A dded By: Mirian Tolbert;Add to Current Problems : NO Not Available [facility] 7 11:23:55 Mononeur itis of lower limb Completed 201311/20/2013 Location : None;Sev erity: Moderate ;Progres s: Stable;A dded By: Mirian Tolbert;Add to Current Problems : YES Not Available [facility] 7 11:23:55 Nocturia 622038314 Completed 201409/10/2015 Location : None;Sev erity: Moderate ;Progres s: Stable;A dded By: Mirian Tolbert;Add to Current Problems : YES Not Available [facility] 7 11:23:55 Dysuria 20399762 Completed 201505/09/2016 Location : None;Sev erity: Moderate ;Progres s: Stable;A dded By: Mirian Tolbert;Add to Current Problems : YES Not Available [facility] 7 11:23:55 Vitamin D deficien cy 87522648 Active 2014 Location : None;Sev erity: Moderate ;Progres s: Stable;A dded By: Mirian Tolbert;Add to Current Problems : YES Not Available [facility] 7 11:23:55 Dyspnea 740596759 Completed 201211/07/2012 Location : None;Sev erity: Moderate ;Progres s: Stable;A dded By: Suha Wiggins;Add to Current Problems : NO Not Available [facility] 7 11:23:56 Indigest ion 693616877 Completed 201202/24/2013 Location : None;Sev erity: Moderate ;Progres s: Stable;A dded By: Debo Haynes;Add to Current Problems : NO Not Available [facility] 7 11:23:56 Benign essentia l hyperten tyrel 1469821 Active 2012 Location : None;Sev erity: Moderate ;Progres s: Stable;A dded By: Paulina Guzman;Add to Current Problems : NO Mirian Tolbert MD Attn: Accounting ,[address] [place], [address] , [facility] 5 11:37:30 Verruca vulgaris 86444646 Completed 201408/12/2015 Location : None;Sev erity: Moderate ;Progres s: Stable;A dded By: Paulina Guzman;Add to Current Problems : YES Not Available [facility] 7 11:23:56 Elevated blood-pr essure reading without diagnosi s of hyperten tyrel 175053199 Completed 201211/14/2012 Location : None;Sev erity: Moderate ;Progres s: Stable;A dded By: Valeria Chu; Add to Current Problems : NO Not Available [facility] 7 11:23:56 Essentia l hyperten tyrel 60511948 Completed 201310/20/2013 Location : None;Sev erity: Moderate ;Progres s: Stable;A dded By: Valeria Chu; Add to Current Problems : NO Mirian Tolbert MD Attn: Accounting ,[address] [place], [address] , [facility] 7 12:18:48 Urgent desire to urinate 62445961 Completed 201412/17/2017 Location : None;Sev erity: Moderate ;Progres s: Stable;A dded By: Valeria Chu; Add to Current Problems : YES Mirian Tolbert MD Attn: Accounting ,[address] [place], [address] , [facility] 8 12:51:58 Cough 97796678 Completed 201308/13/2014 Location : None;Sev erity: Moderate ;Progres s: Stable;A dded By: Arleth Frank i;Amairani dd to Current Problems : YES Not Available [facility] 7 11:23:57 Candidal vulvovag initis 04523867 Completed 201512/30/2015 Location : None;Sev erity: Moderate ;Progres s: Stable;A dded By: Arleth Frank i;Amairani dd to Current Problems : YES Not Available [facility] 7 11:23:57 Eruption 496769291 Completed 201505/08/2016 Location : None;Sev erity: Moderate ;Progres s: Stable;A dded By: Arleth Frank i;A dd to Current Problems : YES Not Available [facility] 7 11:23:57 Vaginiti s and vulvovag initis Active 2014 Location : None;Sev erity: Moderate ;Progres s: Stable;A dded By: Arleth Frank i;A dd to Current Problems : YES Mirian Tolbert MD Attn: Accounting ,[address] [place], [address] , [facility] 4 14:28:59 Glucose level outside referenc e range 712025980 Completed 201407/19/2020 Location : None;Sev erity: Moderate ;Progres s: Stable;A dded By: Rebekah Ackerman;Add to Current Problems : NO Mirian Tolbert MD Attn: Accounting ,[address] [place], [address] , [facility] 0 18:09:18 Acute cystitis 82254923 Completed 201409/03/2015 Location : None;Sev erity: Moderate ;Progres s: Stable;A dded By: Debo Haynes;Add to Current Problems : NO Not Available [facility] 7 11:23:57 Anxiety 81907270 Active 2016 Mirian Tolbert MD Attn: Accounting ,[address] [facility], [place], [address] , [facility] 5 11:37:30 Photoder matitis due to sun Active 2016 Mirian Tolbert MD Attn: Accounting ,[address] [facility], [place], [address] , [facility] 4 14:28:59 Problem Notes None recorded. Procedures Surgical History Date Name Laterality Status Provider Name and Address Organization Details Recorded Time 01/24/20 24 total knee replacement completed Mirian Tolbert MD Attn: Accounting,[address] [facility], [place], [address], [facility] 02/08/2024 17:36:41 07/28/20 19 arthroplasty of left shoulder completed Mirian Tolbert MD Attn: Accounting,[address] [facility], [place], [address], [facility] 08/05/2019 19:03:13 03/26/20 17 Shave Biopsy completed Mirian Tolbert MD Attn: Accounting,[address] [facility], [place], [address], [facility] 03/26/2017 15:54:03 10/01/19 04 Hysterectomy completed Paulina Riojas [facility] 07/10/2016 11:22:31 Imaging Results Imaging Date Name Status LastModified by Organization Details LastModified Time 08/06/2023 XR, knee, 4 or more view completed [facility] Information not available 08/22/2023 12:14:55 10/25/2023 XR, chest, 2 view completed [address] [place], [address], 11/01/2023 16:06:35 11/06/2023 MAMMO, screening, tomosynthesis, bilateral completed [facility] Kodi [address], [address], 11/08/2023 12:30:01 12/03/2023 CT, lower leg, w/o contrast completed [address], [address], 12/18/2023 11:58:39 12/03/2023 electrocardiogram completed [address], [address], 12/18/2023 14:04:41 01/24/2024 XR, knee, 3 view completed [address], [address], 01/24/2024 16:44:31 03/12/2024 XR, knee, 3 view completed [facility] Informat ion not available 03/28/2024 16:02:16 11/10/2024 MAMMO, screening, bilateral completed [address], [address], 11/11/2024 12:10:11 Procedure Notes None recorded. Medical Equipment None Reported. Allergies Allergen ID Allergen Name Allergen Category Reaction Reaction Severity Criticality Documentation Date Start Date Code Code System Note Provider Name and Address Organization Details Recorded Time 99141 codeine medicatio n Not available Not available Not available 07/10/2016 2670 RxNorm Not Available Not Available Not Available 89624 metoprolo l Not available Not available Not available Not available 07/10/2016 6918 RxNorm succi keith Not Available Not Available Not Available 79655 Ciprodex medicatio n flushing Not available Not available 07/28/20162015 78333 0 RxNorm Not Available Not Available Not Available 87092 metoprolo l succinate medicatio n Not available Not available Not available 10/04/20162012 19382 4 RxNorm React ion: tongu e disor rehan;S everi ty: Moder ate; Comme nt: Aller gy Type: Adver se React ion; Not Available Not Available Not Available 50506 lisinopri l medicatio n rash Not available Not available 10/06/2016 58008 RxNorm Not Available Not Available Not Available 28930 atenolol medicatio n hives Not available Not [...] ) by mouth daily 11/07 completed RxNorm: 679429;A llow Substitu tion: True Not Available Not [...] release Take 1 tablet(s ) by mouth qa 2012 active RxNorm: 194017;A llow Substitu tion: True Not Available Not [...] change-- failed three days a week;RxN orm: 796716;A llow Substitu tion: True Not Available Not Available Not Available amoxicill in 875 mg tablet Take 1 tablet(s ) by mouth q12h for 10 days 08/22 completed RxNorm: 005413;A llow Substitu tion: True Not Available Not Available Not Available alprazola m 0.25 mg tablet TAKE 1 TABLET 2 TIMES DAILYAS NEEDED active Not Available Not Available No t Available famotidin e 20 mg tablet TAKE 1 [...] Take 1 tab daily 12/12 completed RxNorm: 493137;Amairani tyler Substitu tion: True Not Available Not Available [...] s) by mouth daily 03/13 completed RxNorm: 737717;A maiw Substitu tion: True Not Available Not [...] Updated DateTime 3 160.02 cm 28.1 kg/m2 95335.3 9 g 97.8 [degF] 98 % 98 [...] Updated DateTime 4 160.02 cm 27.6 kg/m2 90558.4 1 g 97.5 [degF] 76 /min 98 % 98 % 120 mm[Hg] 74 mm[Hg] Deepa Bronson MA [facility] 4 14:21:09 Date Recorded Body height Body mass index (BMI) Body weight Oxygen saturation Oxygen saturation in Arterial blood by Pulse oximetry Heart rate Body temperature Systolic blood pressure Diastolic blood pressure Provider Name and Address Organization Details Last Updated DateTime 4 160.02 cm 27.3 kg/m2 55479.2 2 g 97 % 97 % 77 /min 97.5 [degF] 113 mm[Hg] 78 mm[Hg] Anastasia Orozco MA [facility] 4 11:26:43 Date Recorded Body height Body mass index (BMI) Body weight Body temperature Oxygen saturation Oxygen saturation in Arterial blood by Pulse oximetry Heart rate Systolic blood pressure Diastolic blood pressure Provider Name and Address Organization Details Last Updated DateTime 4 160.02 cm 26.7 kg/m2 50826.4 5 g 97.7 [degF] 99 % 99 % 68 /min 108 mm[Hg] 67 mm[Hg] Deepa Bronson MA [facility] 4 14:15:49 Date Recorded Body height Body mass index (BMI) Body weight Body temperature Heart rate Oxygen saturation Oxygen saturation in Arterial blood by Pulse oximetry Systolic blood pressure Diastolic blood pressure Provider Name and Address Organization Details Last Updated DateTime 5 160.02 cm 26.9 kg/m2 63190.0 4 g 97.7 [degF] 73 /min 97 % 97 % 120 mm[Hg] 75 mm[Hg] Deepa Bronson MA [facility] 5 10:56:33 Social History Question Answer Notes LastModified by Organizat ion Details LastModified Time Tobacco Smoking Status Former Smoker Arleth Yeimy swain [facility] 12/21/2016 17:20:59 Do You Have An Advance [...] Anxious, Or Unable To Sleep At Night)? [id number] Information not available 01/18/2021 Do You Use [...] Time zoster recombinant 0 completed Not Available [facility] 07/03/2023 18:21:58 COVID-19, mRNA, LNP-S, PF, 30 mcg/0.3 mL dose 1 completed Not Available [facility] 07/03/2023 18:21:58 COVID-19, mRNA, LNP-S, PF, 30 mcg/0.3 mL dose 1 completed Not Available [facility] 07/03/2023 18:21:58 Tdap 2 completed Not Available [facility] 07/03/2023 18:21:58 Influenza, split virus, quadrivalent, preservative 6 completed Not Available [facility] 10/18/2019 02:32:32 zoster recombinant 0 completed Not Available [facility] 07/03/2023 18:21:58 COVID-19, mRNA, LNP-S, PF, 30 mcg/0.3 mL dose 1 completed Not Available [facility] 07/03/2023 18:21:58 Influenza, split virus, quadrivalent, PF 0 completed Not Available [facility] 07/03/2023 18:21:58 Pneumococcal conjugate PCV20, polysaccharide TCI534 conjugate, adjuvant, PF 3 completed Not Available [facility] 07/03/2023 18:21:58 COVID-19, mRNA, LNP-S, PF, 50 mcg/0.5 mL 4 completed Mirian Tolbert MD Attn: Accounting,[address] [place], [address], [place] [facility] 11/03/2024 11:37:02 Influenza, high-dose, trivalent, PF 4 completed Mirian Tolbert MD Attn: Accounting,[address] [place], [address], [place] [facility] 11/03/2024 11:37:02 Influenza, split virus, quadrivalent, preservative 7 completed Not Available [facility] 10/18/2019 02:34:21 Influenza, split virus, quadrivalent, preservative 8 completed Not Available [facility] 10/18/2019 02:36:25 Influenza, split virus, quadrivalent, preservative 9 completed Not Available [facility] 10/18/2019 02:38:46 Influenza, split virus, quadrivalent, preservative 1 completed Liang Chow [place] null, [place] [facility] 08/05/2021 11:01:21 Pneumococcal conjugate PCV 13 2 completed Liang Chow [place], [place] [facility] 11/29/2021 11:29:09 Influenza, split virus, quadrivalent, preservative 3 completed Liang Chow [place], [place] [facility] 10/10/2022 11:07:40 Influenza, split virus, trivalent, preservative 4 completed Not Available [facility] 07/03/2023 18:21:58 Influenza, split virus, quadrivalent, preservative 5 completed Not Available [facility] 07/03/2023 18:21:58 Influenza, split virus, quadrivalent, preservative 4 completed Mirian Tolbert MD Attn: Accounting,[address] [facility], [place], [address], [facility] 10/26/2023 08:00:56 Past Encounters Encounter ID Performer Location Encounter Start Date Encounter Closed Date Diagnosis/Indication Diagnosis SNOMED-CT Code Diagnosis ICD10 Code Diagnosis Note [id number] Mirian Tolbert MD [facility] [address] [facility] [address] [place] [address] 07/10/2016 10:45:17 07/10/2016 17:46:36 Gynecologic examination 27240444 Z01.411 physcal activity-- lose weight. Recheck BP in 3 mo Atrophic vaginitis 01561 000 N95.2 Gastroesop hageal reflux disease without esophagitis 007569889 K21.9 Hyperglycemia 86463835 R 73.9 Screening for malignant neoplasm of colon 388149625 Z12.11 Hyperlipid emia screening 438560029 Z13.220 Administra tion of influenza vaccine 60216365 Z23 Thyroid di sorder screening 035889884 Z13.29 Increased blood pressure 18307933 R03.0 Upper resp iratory infection 87239477 J06.9 you will call if you do not feel better with pain reliever and rest. Ok for over the counter cougha dn cold reliever-- but avoid decongesta nts [id number] MURRAY Jhaveri [facility] [address] [facility] [address] [place] [address] 07/28/2016 10:41:40 07/31/2016 17:19:36 Eustachian tube disorder 81064579 H69.93 Discussed ear valsalvas, which gave her immediate relief in the office. [id number] Mirian Tolbert MD [facility] [address] [place] [address] 10/03/2016 12:36:04 10/04/2016 13:26:35 Atypical chest pain 564561352 R07.89 given FH of heart disease and your complaint- - I will refer you to a cardiologi st to further evaluate your complaint Anxiety 62128333 F41.9 due to panic attacks-- I recommend that you are off of work for a week for further testing and to make arrangemen ts with your parents Gastroesop hageal reflux disease 925711811 K21.9 [id number] Mirian Tolbert MD [facility] [address] [place] [address] 10/23/2016 16:23:56 10/24/2016 13:56:20 Anxiety 96029498 F41.9 due to panic attacks--c ont to try to get transporta tion for your parents to avoid emotional stress [id number] Mirian Tolbert MD [facility] [address] [place] [address] 12/25/2016 16:39:08 12/26/2016 15:58:01 Anxiety 89998146 F41.9 due to panic attacks--c ont to try to get transporta tion for your parents to avoid emotional stress. Worried about her parents and their medication and cognitive issues. Contusion of foot 883303 04 S90.31XA [id number] Debo Cervantes [place] [address] [address] [facility] [address] [place] [address] 03/26/2017 14:28:52 03/26/2017 16:20:19 Anxiety 02627653 F41.9 no change meds for anxiety and stress-- use sparingly as directed Intermitte nt dysphagia 79145860 R13.19 Herpes simplex 05377971 B00.9 Skin lesion 80931769 L98 .9 [id number] Mirian Tolbert MD [place] [address] [facility] [address] [place] [address] 07/02/2017 12:22:16 07/02/2017 14:30:02 Allergic reaction to drug 461496568 T50.905A stop the losartan/H CTZ and start Losartan alone. Restart the Propranolo l. Recheck in 2 weeks. The rash is likely related to sun sensitivit y with the HCTZ Administra tion of influenza vaccine 09801773 Z23 [id number] Mirian Tolbert MD [place] [address] [address] [facility] [address] [place] [address] 07/16/2017 11:08:41 07/16/2017 18:03:10 Photodermatitis due to sun 146339418 L56.2 reassured that rash looks good. Feeling better at this time Glucose le fredrick outside reference range 915497593 R73.09 check labs today Benign ess ential hypertension 7726131 I10 no med chagne-- rash appears better to me Vitamin D deficiency 347 67038 E55.9 [id number] Arleth esparza [facility] [address] [place] [address] 12/17/2017 11:42:54 12/17/2017 16:00:22 Benign essential hypertension 2117392 I10 stress weight loss and exercise Anxiety 11904804 F41.9 use as needed for the anxiety Herpes simplex 13394237 B00.9 use for prevention Pain in right heel 16231 75647 778985 M79.671 stretch and massage the area Edema of l ower extremity 909884526 R60.0 new start of the diuretic for the edema and the salt avoidance Body mass index 30+ - obesity 355445952 Z68.39 weight loss encouraged Mixed insomnia 12465374 G47.09 try melatonin and diphenhydr amine for insomnia Vaginitis and vulvovaginitis 004575871 N77.1 due to menopause- - you will slowly try to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
--- OUTSIDE RECORDS SUMMARY | 2024-12-03 08:57 | XMS_ITS | Patient Health Summary ---
Author Organization [facility] Address [address] [place] [address] Care Team Providers Care Tie Knitter Helper Name Role Phone Unavailable Primary Care Provider Unavailabl e Note from [facility],non-owned Affiliates and Associated Physician Practices is amultiple site organization consisting of ambulatory clinics and hospital sitesin [place], [place], [place] and [place]. This disclosure is being madepursuant to the Care Everywhere program and may not contain all information available regarding this patient. Last updated 18.[facility] Allergies No known active allergies Immunizations * INFLUENZA VACCINE, QUADR. (FLUZONE; FLULAVAL; FLUARIX; AFLURIA QUADRIVALENT; 6MO+), 0.5 ML (IIV4)(Given 07/30/2020) Social History Tobacco Use Types Packs/Day Years Used Date Smoking Tobacco: Never Assessed Sex and Gender Information Value Date Recorded Sex Assigned at Not on file Gender Identity Not on file Sexual Orientation Not on file
--- OUTSIDE RECORDS SUMMARY | 2024-12-03 08:57 | XMS_ITS | Clinical Summary ---
Author Organization [facility] Address [facility] [place] [address] Care Team Providers Care Campaign Marketing Specialist Name Role Phone Mirian Bentley MD Primary Care Provider [phone] Haily Vanegas MD Unavailable [phone] Allergies Active Allergy Reactions Criticality Noted Date [...] Units total) by mouth daily Active omega 3-atf-eks-fish oil 1,000 mg (120 mg-180 mg) capsule [...] lancets (OneTouch Delica Plus Lancet) 33 gauge [facility] OneTouch Delica Plus Lancet 33 gauge Active blood glucose diagnostic (OneTouch Verio test strips) strip OneTouch Verio test strips Active blood-glucose meter (OneTouch Verio Reflect Meter) [facility] OneTouch Verio Reflect Meter Active atenoloL (TENORMIN) [...] Diabetes mellitus type II, non insulin dependent 08/10/2021 Hypertriglyceridemia 08/10/2021 Chronic anxiety 03/15/2021 Recurrent herpes simplex 01/18/2021 Recurrent urinary tract infection 01/18/2021 Transient insomnia 12/16/2020 Atypical chest pain 12/05/2020 Type 2 diabetes mellitus without complication 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 Headache [...] Encounters Date Type Department Care Team Description 11/28/2024 Orders Only [facility] Medical Group Cardiology [address] [facility] [address] [place] [address] Iain Calderón MD from Last 3 Months Surgical History Surgery [...] on file Legal Sex Female 7:17 PM CHRISTIAN MINISTRIES PROFESSOR Gender Identity Not on file Sexual Orientation Not on file Obstetrics History Last Filed Vital Signs Vital Sign Reading Time Taken Comments Blood Pressure 118/60 05/23/2024 11:28 AM CDT Pulse 62 05/23/2024 11:28 AM CDT Temperature 36.2 C (97.1 F) 08/10/2021 9:12 AM CHRISTIAN MINISTRIES PROFESSOR Respiratory Rate - - Oxygen Saturation 98% [...] Pneumococcal vaccine 65+ (2 of 2 - PPSV23) 01/24/2022 11/29/2021 Covid-19 Vaccine (4 - 2023-2 5 season) 2024 09/29/2021, 12/31/2020, 12/07/2020 Influenza Vaccine (#1) 2024 , 10/10/2022, 08/05/2021, Additional history exists Breast Cancer Screening-Mammogram 11/07/2024 11/07/2023, 06/28/2022, 04/27/2021, Additional history exists Lipid Panel 11/28/2025 11/28/2024, 05/09/2024 eGFR 11/28/2025 11/28/2024, 05/09/2024 DTaP/Tdap/Td Vaccine (2 - Td or Tdap) 11/30/2031 11/29/2021 Zoster Vaccine Completed 09/28/2020, 07/30/2020 Procedures Procedure Name Priority Date/Time Associated Diagnosis Comments COMPREHENSIVE METABOLIC PANEL Routine 11/28/2024 8:24 AM CHRISTIAN MINISTRIES PROFESSOR MAGNESIUM Routine 11/28/2024 8:24 AM CHRISTIAN MINISTRIES PROFESSOR LIPID PANEL Routine 11/28/2024 8:24 AM CHRISTIAN MINISTRIES PROFESSOR CBC WITH AUTO DIFFERENTIAL Routine 11/28/2024 8:24 AM CHRISTIAN MINISTRIES PROFESSOR TSH Routine 11/28/2024 8:24 AM CHRISTIAN MINISTRIES PROFESSOR from Last 3 Months Results * (ABNORMAL) CBC with auto differential (11/28/2024 8:24 AM CHRISTIAN MINISTRIES PROFESSOR) WBC 5.2 3.8 - 10.8 Thousand/u L [facility] RBC, POC 4.45 3.80 - 5.10 Million/uL [facility] Hgb 13.3 11.7 - 15.5 g/dL [facility] Hct 41.1 35.0 - 45.0 % [facility] MCV 92.4 80.0 - 100.0 fL [facility] MCH 29.9 27.0 - 33.0 pg [facility] MCHC 32.4 32.0 - 36.0 g/dL [facility] Comment: For adults, a slight decrease in the calculated MCHC value (in the range of 30 to 32 g/dL) is most likely not clinically significant; however, it should be interpreted with caution in correlation with other red cell parameters and the patient's clinical condition. Rdw 12.1 11.0 - 15.0 % [facility] Platelets 230 140 - 400 Thousand/u L [facility] MPV 9.7 7.5 - 12.5 fL [facility] Neutrophils, abs 2,569 1,500 - 7,800 cells/uL [facility] Lymphocytes, abs 1,440 850 - 3,900 cells/uL [facility] Monocyte abs 432 200 - 950 cells/uL [facility] Eosinophils, abs 718(H) 15 - 500 cells/uL [facility] Basophils, abs 42 0 - 200 cells/uL [facility] Neutrophils 49.4 % [facility] Lymphocyte pct 27.7 % [facility] Monocytes 8.3 % [facility] Eosinophils 13.8 % [facility] Basophils 0.8 % [facility] 11/28/2024 8:24 AM CHRISTIAN MINISTRIES PROFESSOR 11/28/2024 8:25 AM CHRISTIAN MINISTRIES PROFESSOR us Iain Calderón MD LAB BLOOD ORDERABLES Final Result Performing Organization Address [facility] Co de Phone Number QUEST [facility] [address] [place] [address] * TSH (11/28/2024 8:24 AM CHRISTIAN MINISTRIES PROFESSOR) Pathologist [facility] TSH 2.79 0.40 - 4.50 mIU/L [facility] 11/28/2024 8:24 AM CHRISTIAN MINISTRIES PROFESSOR 11/28/2024 8:25 AM CHRISTIAN MINISTRIES PROFESSOR Iain Calderón MD LAB BLOOD ORDERABLES Final Result Performing Organization Address [facility] Co de Phone Number QUEST [facility] [address] [place] [address] * Magnesium (11/28/2024 8:24 AM CHRISTIAN MINISTRIES PROFESSOR) [facility] Magnesium 1.9 1.5 - 2.5 mg/dL [facility] 11/28/2024 8:24 AM CHRISTIAN MINISTRIES PROFESSOR 11/28/2024 8:25 AM CHRISTIAN MINISTRIES PROFESSOR Iain Calderón MD LAB BLOOD ORDERABLES Final Result Performing Organization Address [facility] de Phone Number QUEST [facility] [address] [place] [address] * (ABNORMAL) Lipid panel (11/28/2024 8:24 AM CHRISTIAN MINISTRIES PROFESSOR) [facility] Cholesterol 112 <200 mg/dL [facility] HDL 47(L) > OR = 50 mg/dL [facility] Triglycerides 70 <150 mg/dL [facility] LDL 50 mg/dL (calc) [facility] Comment: Reference range: <100 Desirable range <100 mg/dL for primary prevention; <70 mg/dL for patients with CHD or diabetic patients with > or = 2 CHD risk factors. LDL-C is now calculated using the Nando-Navas calculation, which is a validated novel method providing better accuracy than the Friedewald equation in the estimation of LDL-C. Nando SS et al. PRATEEK. 2013;310(19): 9432-6662 (http://education.LinguaLeo/faq/YVY150) Chol/HDL ratio 2.4 <5.0 (calc) [facility] Non-HDL, (LDL+VLDL) 65 <130 mg/dL (calc) [facility] Comment: For patients with diabetes plus 1 major ASCVD risk factor, treating to a non-HDL-C goal of <100 mg/dL (LDL-C of <70 mg/dL) is considered a therapeutic option. 11/28/2024 8:24 AM CHRISTIAN MINISTRIES PROFESSOR 11/28/2024 8:25 AM CHRISTIAN MINISTRIES PROFESSOR us Iain Calderón MD LAB BLOOD ORDERABLES Final Result [facility] [address] [place] [address] * (ABNORMAL) Comprehensive metabolic panel (11/28/2024 8:24 AM CHRISTIAN MINISTRIES PROFESSOR) Glucose 111(H) 65 - 99 mg/dL [facility] Comment: Fasting reference interval For someone without known diabetes, a glucose value between 100 and 125 mg/dL is consistent with prediabetes and should be confirmed with a follow-up test. BUN 21 7 - 25 mg/dL [facility] Creatinine 0.92 0.50 - 1.05 mg/dL [facility] eGFR 68 > OR = 60 mL/min/1.7 3m2 [facility] BUN/creat ratio SEE NOTE: 6 - 22 (calc) [facility] Comment: Not Reported: BUN and Creatinine are within reference range. Sodium 139 135 - 146 mmol/L [facility] Potassium, pl 4.1 3.5 - 5.3 mmol/L [facility] Chloride 103 98 - 110 mmol/L [facility] CO2 28 20 - 32 mmol/L [facility] Calcium 9.6 8.6 - 10.4 mg/dL [facility] Protein, sr 6.2 6.1 - 8.1 g/dL [facility] Albumin 4.3 3.6 - 5.1 g/dL [facility] GLOBULIN 1.9 1.9 - 3.7 g/dL (calc) [facility] Alb/glob ratio 2.3 1.0 - 2.5 (calc) [facility] Bilirubin, total 0.5 0.2 - 1.2 mg/dL [facility] Alk phos 50 37 - 153 U/L [facility] AST 14 10 - 35 U/L [facility] ALT (SGPT) 13 6 - 29 U/L [facility] 11/28/2024 8:24 AM CHRISTIAN MINISTRIES PROFESSOR 11/28/2024 8:25 AM CHRISTIAN MINISTRIES PROFESSOR us Iain Calderón MD LAB BLOOD ORDERABLES Final Result [facility] [address] [facility] [place] [address] from Last 3 Months Insurance MEDICARE [facility] MEDICARE [facility] Care Teams Campaign Marketing Specialist Relationship Specialty Start Date End Date Mirian Bentley MD [address] [address] PCP - General 10/17/12 Haily Vanegas MD [address] [address] Boat Engine Mechanic Cardiovascular Disease 05/06/19
--- OUTSIDE RECORDS SUMMARY | 2024-12-03 08:57 | XMS_ITS | Encounter Summary ---
Author Organization [facility] Facility Care Team Providers Care Wire Tester Name Role Phone Mirian Bentley MD Primary Care Provider [phone] Haily Vanegas MD Unavailable [phone] Encounter Details Date Type Department Care Team (Latest Contact Info) Description 10/05/2016 Orders Only [facility] ProviderRyan MD [address] [place] [address] Social History Tobacco Use Types Packs/Day Years Used Date Smoking Tobacco: Former Cigarettes Q uit: 10/01/1982 Alcohol Use Standard Drinks/Week Comments Yes 0 (1 standard drink = 0.6 oz pur e alcohol) Comments Unknown Sex and Gender Information Value Date Recorded Sex Assigned at Not on file Legal Sex Female 7:17 PM HAMMER FITTER Gender Identity Not on file Sexual Orientation Not on file documented as of this encounter Plan of Treatment Not on file documented as of this encounter Procedures Procedure Name Priority Date/Time Associated Diagnosis Comments CARDIOLOGY REPORT 10/19/2016 12: 00 AM HAMMER FITTER documented in this encounter Results * CARDIOLOGY REPORT (10/19/2016 12:00 AM HAMMER FITTER) Anatomical Region Laterality Modality Other Narrative 10/19/2016 12:00 AM HAMMER FITTER Ordered by an unspecified provider. Historical Provider [facility] LOYDA HOFF Final Result documented in this encounter Visit Diagnoses Not on filedocumented in this encounter Care Teams Wire Tester Relationship Specialty Start Date End Date Mirian Bentley MD [address] [address] PCP - General 10/17/12 Haily Vanegas MD [address] [address] Learning Manager Cardiovascular Disease 05/06/19 documented as of this encounter
--- OUTSIDE RECORDS SUMMARY | 2024-12-03 08:57 | XMS_ITS | Encounter Summary ---
Author Organization [facility] Facility Care Team Providers Care Log Marker Name Role Phone Mirian Bentley MD Primary Care Provider [phone] Haily Vanegas MD Unavailable [phone] Encounter Details Date Type Department Care Team (Latest Contact Info) Description 07/17/2017 Orders Only [facility] CLINCON[facility] ProviderRyan MD [address] [place] [address] Social History Tobacco Use Types Packs/Day Years Used Date Smoking Tobacco: Former Cigarettes Q uit: 10/01/1982 Alcohol Use Standard Drinks/Week Comments Yes 0 (1 standard drink = 0.6 oz pur e alcohol) Comments Unknown Sex and Gender Information Value Date Recorded Sex Assigned at Not on file Legal Sex Female 7:17 PM CLIENT PROGRAM MANAGER Gender Identity Not on file Sexual [...] on filedocumented in this encounter Care Teams Log Marker Relationship Specialty Start Date End Date Mirian Bentley MD [address] [address] PCP - General 10/17/12 Haily Vanegas MD [address] [address] Reflector Driller And Deburrer Cardiovascular Disease 05/06/19 documented as of this encounter
--- OUTSIDE RECORDS SUMMARY | 2024-12-03 08:57 | XMS_ITS | Referral Summary ---
Author Organization [facility] Address [address] [place] [address] Care Team Providers Care Car Cleaning Supervisor Name Role Phone Mirian Bentley MD Primary Care Provider [phone] Haily Vanegas MD Unavailable [phone] Encounters Date Type Department Care Team Description 11/28/2024 Orders Only [facility] Medical Group Cardiology [address] [facility] [address] [place] [address] Iain Calderón MD from Last 3 Months Allergies Active Allergy [...] Units total) by mouth daily Active omega 7-gml-qwk-fish oil 1,000 mg (120 mg-180 mg) capsule [...] lancets (OneTouch Delica Plus Lancet) 33 gauge [facility] OneTouch Delica Plus Lancet 33 gauge Active blood glucose diagnostic (OneTouch Verio test strips) strip OneTouch Verio test strips Active blood-glucose meter (OneTouch Verio Reflect Meter) [facility] OneTouch Verio Reflect Meter Active atenoloL [...] (05/14/2024): Location: None;Severity: Moderate;Progress: Stable;Added By: Arleth Estrdaa;Add to Current Problems: YES Dysuria 03/10/2016 Overview [...] (05/14/2024): Location: None;Severity: Moderate;Progress: Stable;Added By: Arleth Estarda;Add to Current Problems: YES Indigestion 01/24/2013 Overview [...] on file Legal Sex Female 7:17 PM MOBILE HOME SET UP PERSON Gender Identity Not on file Sexual Orientation Not on file Last Filed Vital Signs Vital Sign Reading Time Taken Comments Blood Pressure 118/60 05/23/2024 11:28 AM CDT Pulse 62 05/23/2024 11:28 AM CDT Temperature 36.2 C (97.1 F) 08/10/2021 9:12 AM MOBILE HOME SET UP PERSON Respiratory Rate - - Oxygen Saturation 98% [...] COMPREHENSIVE METABOLIC PANEL Routine 11/28/2024 8:24 AM MOBILE HOME SET UP PERSON MAGNESIUM Routine 11/28/2024 8:24 AM MOBILE HOME SET UP PERSON LIPID PANEL Routine 11/28/2024 8:24 AM MOBILE HOME SET UP PERSON CBC WITH AUTO DIFFERENTIAL Routine 11/28/2024 8:24 AM MOBILE HOME SET UP PERSON TSH Routine 11/28/2024 8:24 AM MOBILE HOME SET UP PERSON from Last 3 Months Results * (ABNORMAL) CBC with auto differential (11/28/2024 8:24 AM MOBILE HOME SET UP PERSON) WBC 5.2 3.8 - 10.8 Thousand/u L [...] % [facility] 11/28/2024 8:24 AM MOBILE HOME SET UP PERSON 11/28/2024 8:25 AM MOBILE HOME SET UP PERSON Iain Calderón MD LAB BLOOD ORDERABLES Final Result Performing Organization Address [facility] de Phone Number [facility] [address] [place] [address] * TSH (11/28/2024 8:24 AM MOBILE HOME SET UP PERSON) Pathologist [facility] TSH 2.79 0.40 - 4.50 mIU/L [facility] 11/28/2024 8:24 AM MOBILE HOME SET UP PERSON 11/28/2024 8:25 AM MOBILE HOME SET UP PERSON Iain Calderón MD LAB BLOOD ORDERABLES Final Result Performing Organization Address [facility] Phone Number [facility]ST [facility] [address] [place] [address] * Magnesium (11/28/2024 8:24 AM MOBILE HOME SET UP PERSON) Pathologist [facility] Magnesium 1.9 1.5 - 2.5 mg/dL [facility] 11/28/2024 8:24 AM MOBILE HOME SET UP PERSON 11/28/2024 8:25 AM MOBILE HOME SET UP PERSON Iain Calderón MD LAB BLOOD ORDERABLES Final Result Performing Organization Address [facility] Phone Number [facility] [address] [place] [address] * (ABNORMAL) Lipid panel (11/28/2024 8:24 AM MOBILE HOME SET UP PERSON) Pathologist [facility] Cholesterol 112 <200 mg/dL [facility] [...] LDL-C. Nando SCOTT et al. PRATEEK. 2013;310(19): 1318-8122 (http://education.CoverHound/faq/CNP046) Chol/HDL ratio 2.4 <5.0 (calc) [facility] Non-HDL, (LDL+VLDL) 65 <130 mg/dL (calc) [facility] Comment: For patients with diabetes plus 1 major ASCVD risk factor, treating to a non-HDL-C goal of <100 mg/dL (LDL-C of <70 mg/dL) is considered a therapeutic option. 11/28/2024 8:24 AM MOBILE HOME SET UP PERSON 11/28/2024 8:25 AM MOBILE HOME SET UP PERSON Iain Calderón MD LAB BLOOD ORDERABLES Final Result [facility] [address] [place] [address] * (ABNORMAL) Comprehensive metabolic panel (11/28/2024 8:24 AM MOBILE HOME SET UP PERSON) Glucose 111(H) 65 - 99 mg/dL [facility] [...] U/L [facility] 11/28/2024 8:24 AM MOBILE HOME SET UP PERSON 11/28/2024 8:25 AM MOBILE HOME SET UP PERSON us Iain Calderón MD LAB BLOOD ORDERABLES Final Result [facility] [address] [place] [address] from Last 3 Months Insurance [facility]ICARE [facility] MEDICARE [facility] Care Teams Car Cleaning Supervisor Relationship Specialty Start Date End Date Mirian Bentley MD [address] [address] PCP - General 10/17/12 Haily Vanegas MD [address] [facility] [address] [address] Deputy Chief Magistrate Cardiovascular Disease 05/06/19
--- OUTSIDE RECORDS SUMMARY | 2024-12-03 08:57 | XMS_ITS | Continuity of Care Document ---
Author Organization [employer] Address [address] [place] [address] Phone Care Team Providers Care Spray Gun Striper Name Role Phone Brendon Sal MD Unavailable Unavailable Medications Medication Instructions Dosage Effective Dates (start - stop) Status Comments cetirizine 10 mg tablet take 1 tablet by oral route twice daily - Active aspirin 81 mg chewable tablet - Active FISH OIL (unknown strength) Not Available - Active D3-2000 2,000 unit capsule - Active propranolol 20 mg tablet [...] to the affected area(s) 0.00 - Active nitrofurantoin macrocrystal 50 mg capsule - Active nabumetone 500 mg tablet take 1 tablet by oral route 2 times every day 500 MG - Active esomeprazole magnesium 40 mg capsule,delayed release take 2 capsule by oral route every day 80 MG - Active famciclovir 500 mg tablet - Active Advance Directives Directive Yes / No Effective Date File Name No Information Encounters Encounter Description Practice Location Reason(s) For Visit Diagnoses Date Provider Providers Copied on Encounter [employer] [facility], [address], [place], [place], [id number], [place] tel:[phone] [facility] [address] [address] [facility], [facility] [address], [place], [place], [id number] , [place]. tel: [phone] Referring Provider: Mirian Bentley, [address], [place], [address]. tel:[phone] [facility], [address], [place], [place], [id number], [place] tel:[phone] [facility] RESPIRATORY ABNORM NECVOCAL CORD DISEASE NECCHRONIC RHINITISCOUGH [address] [address] [facility], [facility] [address], [place], [place], [id number] , [place]. tel: [phone] Family History Family Member Type Diagnosis Age At Onset No Information Payers Payer name Insurance type Covered libertarian ID Ayana ward(s) [employer] [facility] CI [id number] Social History Type Description Quantity Date Captured [...]
--- OUTSIDE RECORDS SUMMARY | 2024-12-03 08:57 | XMS_ITS | Encounter Summary ---
Author Organization [facility] Facility Care Team Providers Care Machine Zipper Trimmer Name Role Phone Mirian Bentley MD Primary Care Provider [phone] Haily Vanegas MD Unavailable [phone] Encounter Details Date Type Department Care Team (Latest Contact Info) Description 10/19/2016 Orders Only [facility]IN[facility] ProviderRyan MD [address] [place] [address] Social History Tobacco Use Types Packs/Day Years Used Date Smoking Tobacco: Former Cigarettes Q uit: 10/01/1982 Alcohol Use Standard Drinks/Week Comments Yes 0 (1 standard drink = 0.6 oz pur e alcohol) Comments Unknown Sex and Gender Information Value Date Recorded Sex Assigned at Not on file Legal Sex Female 7:17 PM TOW MOTOR MECHANIC Gender Identity Not on file Sexual Orientation Not on file documented as of this encounter Plan of Treatment Not on file documented as of this encounter Procedures Procedure Name Priority Date/Time Associated Diagnosis Comments CARDIOLOGY REPORT 10/19/2016 12: 00 AM TOW MOTOR MECHANIC documented in this encounter Results * CARDIOLOGY REPORT (10/19/2016 12:00 AM TOW MOTOR MECHANIC) Anatomical Region Laterality Modality Other Narrative 10/19/2016 12:00 AM TOW MOTOR MECHANIC Ordered by an unspecified provider. Historical Provider [facility] LOYDA HOFF Final Result documented in this encounter Visit Diagnoses Not on filedocumented in this encounter Care Teams Machine Zipper Trimmer Relationship Specialty Start Date End Date Mirian Bentley MD [address] [address] PCP - General 10/17/12 Haily Vanegas MD [address] [facility] [address] [address] Produce Sorter Cardiovascular Disease 05/06/19 documented as of this encounter
--- OUTSIDE RECORDS SUMMARY | 2024-12-03 08:58 | XMS_ITS | Encounter Summary ---
Author Organization [facility] Facility Care Team Providers Care Lime Kiln Worker Name Role Phone Mirian Bentley MD Primary Care Provider [phone] Haily Vanegas MD Unavailable [phone] Encounter Details Date Type Department Care Team (Latest Contact Info) Description 10/04/2016 Orders Only [facility] CLINCONV ProviderRyan MD [address] [place] [address] Social History Tobacco Use Types Packs/Day Years Used Date Smoking Tobacco: Former Cigarettes Q uit: 10/01/1982 Alcohol Use Standard Drinks/Week Comments Yes 0 (1 standard drink = 0.6 oz pur e alcohol) Comments Unknown Sex and Gender Information Value Date Recorded Sex Assigned at Not on file Legal Sex Female 7:17 PM ALL AROUND PATTERNMAKER Gender Identity Not on file Sexual Orientation Not on file documented as of this encounter Plan of Treatment Not on file documented as of this encounter Procedures Procedure Name Priority Date/Time Associated Diagnosis Comments CARDIOLOGY REPORT 10/19/2016 12: 00 AM ALL AROUND PATTERNMAKER documented in this encounter Results * CARDIOLOGY REPORT (10/19/2016 12:00 AM ALL AROUND PATTERNMAKER) Anatomical Region Laterality Modality Other Narrative 10/19/2016 12:00 AM ALL AROUND PATTERNMAKER Ordered by an unspecified provider. Historical Provider [facility] LOYDA HOFF Final Result documented in this encounter Visit Diagnoses Not on filedocumented in this encounter Care Teams Lime Kiln Worker Relationship Specialty Start Date End Date Mirian Bentley MD [address] [address] PCP - General 10/17/12 Haily Vanegas MD [address] [address] Paymaster Of Purses Cardiovascular Disease 05/06/19 documented as of this encounter
== END 2024-12-03 08:41 | disposition home or self-care (01) ==
PROVIDERS: PCP Family Medicine; Visit Provider Family Medicine
DX: Z13.6 Encounter for screening for cardiovascular disorders (principal)
CPT/HCPCS: 76706

== ENCOUNTER 2025-02-08 08:32 | Outpatient (CLI) | payer MEDICARE, OTHER, SELFPAY ==
--- NOTE | ~2025-02-08 | XR_ITS ---
XR knee RT 3V 02/08/2025 08:56 Indication: Prior right knee replacement Procedure: 3 views right knee Comparison: 03/12/2024 Findings: No fracture, subluxation or dislocation. There is a right total knee arthroplasty. Prosthes is well seated without evidence for loosening or infection. No significant joint effusion. Impression: 1: No significant bone or joint abnormality. Reviewed, dictated and finalized at location A. Impression: 1: No significant bone or joint abnormality.
--- OUTSIDE RECORDS SUMMARY | 2025-02-08 08:38 | XMS_ITS | Encounter Summary ---
Author Organization [facility] Facility Care Team Providers Care Vocational Psychologist Name Role Phone Mirian Bentley MD Primary Care Provider [phone] Haily Vanegas MD Unavailable [phone] Encounter Details Date Type Department Care Team (Latest Contact Info) Description 03/18/2018 Orders Only [facility] CLINCONV ProviderRyan MD [address] [place] [address] Social History Tobacco Use Types Packs/Day Years Used Date Smoking Tobacco: Former Cigarettes Q uit: 10/01/1982 Alcohol Use Standard Drinks/Week Comments Yes 0 (1 standard drink = 0.6 oz pur e alcohol) Comments Unknown Sex and Gender Information Value Date Recorded Sex Assigned at Not on file Legal Sex Female 7:17 PM JEWELRY CONSULTANT Gender Identity Not on file Sexual Orientation [...] on filedocumented in this encounter Care Teams Vocational Psychologist Relationship Specialty Start Date End Date Mirian Bentley MD [address] [address] PCP - General 10/17/12 Haily Vanegas MD [address] [facility] [address] [address] Supervisor Microbiology Technologists Cardiovascular Disease 05/06/19 documented as of this encounter
--- OUTSIDE RECORDS SUMMARY | 2025-02-08 08:38 | XMS_ITS | Clinical Summary ---
Author Organization [facility] Address [address] [place] [address] Care Team Providers Care Gas Regulator Repairer Name Role Phone Unavailable Primary Care Provider Unavailabl e Source Comments [facility],non-owned Affiliates and Associated Physician Practices is amultiple site organization consisting of ambulatory clinics and hospital sitesin [place], [place], [place] and [place]. This disclosure is being madepursuant to the Care Everywhere program and may not contain all information available regarding this patient. Last updated 18.[facility] [employer] Allergies No known active allergies Immunizations Immunization Administration Dates Next Due INFLUENZA VACCINE, QUADR. (F LUZONE; FLULAVAL; FLUARIX; AFLURIA QUADRIVALENT; 6MO+), 0.5 ML (IIV4) 07/30/2020 Social History Tobacco Use Types Packs/Day Years Used Date Smoking Tobacco: Never Assessed Comments Unknown Sex and Gender Information Value Date Recorded Sex Assigned at Not on file Legal Sex Female 12:45 PM CDT Gender Identity Not on file Sexual Orientation [...] VACCINE (1 of 2) 2007 COVID-19 VACCINE (2023- season) 2024 DEPRESSION SCREENING 10/01/2024 INFLUENZA VACCINE (Season Ended) 2025 07/30/2020, 08/18/2019, 07/08/2018, Additional history exists Respiratory Syncytial Virus (RSV) Vaccine Pt: or [...] complete this topic MENINGOCOCCAL (Group B) VACCINE SHARED DECISION-MAKING Aged Out No longer eligible based on patient's age to complete this topic MENINGOCOCCAL GROUPS A/C/Y/W VACCINE Aged Out No longer eligible based on patient's age to complete this topic Insurance [facility]
--- OUTSIDE RECORDS SUMMARY | 2025-02-08 08:38 | XMS_ITS | Encounter Summary ---
Author Organization [facility] Facility Care Team Providers Care Depot Agent Name Role Phone Mirian Bentley MD Primary Care Provider [phone] Haily Vanegas MD Unavailable [phone] Encounter Details Date Type Department Care Team (Latest Contact Info) Description 10/04/2016 Orders Only [facility] CLINCONV ProviderRyan MD [address] [place] [address] Social History Tobacco Use Types Packs/Day Years Used Date Smoking Tobacco: Former Cigarettes Q uit: 10/01/1982 Alcohol Use Standard Drinks/Week Comments Yes 0 (1 standard drink = 0.6 oz pur e alcohol) Comments Unknown Sex and Gender Information Value Date Recorded Sex Assigned at Not on file Legal Sex Female 7:17 PM SLIME PLANT OPERATOR Gender Identity Not on file Sexual Orientation Not on file documented as of this encounter Plan of Treatment Not on file documented as of this encounter Procedures Procedure Name Priority Date/Time Associated Diagnosis Comments CARDIOLOGY REPORT 10/19/2016 12: 00 AM SLIME PLANT OPERATOR documented in this encounter Results * CARDIOLOGY REPORT (10/19/2016 12:00 AM SLIME PLANT OPERATOR) Anatomical Region Laterality Modality Other Narrative 10/19/2016 12:00 AM SLIME PLANT OPERATOR Ordered by an unspecified provider. Historical Provider [facility] CARDIAC SERVICES LOYDA HOFF Final Result documented in this encounter Visit Diagnoses Not on filedocumented in this encounter Care Teams Depot Agent Relationship Specialty Start Date End Date Mirian Bentley MD [address] [address] PCP - General 10/17/12 Haily Vanegas MD [address] [facility] [address] [address] Distributor Operator Cardiovascular Disease 05/06/19 documented as of this encounter
--- OUTSIDE RECORDS SUMMARY | 2025-02-08 08:38 | XMS_ITS | Encounter Summary ---
Author Organization [facility] Facility Care Team Providers Care Rn Intern Name Role Phone Mirian Bentley MD Primary Care Provider [phone] Haily Vanegas MD Unavailable [phone] Encounter Details Date Type Department Care Team (Latest Contact Info) Description 07/17/2017 Orders Only [facility] CLINCONV ProviderRyan MD [address] [place] [address] Social History Tobacco Use Types Packs/Day Years Used Date Smoking Tobacco: Former Cigarettes Q uit: 10/01/1982 Alcohol Use Standard Drinks/Week Comments Yes 0 (1 standard drink = 0.6 oz pur e alcohol) Comments Unknown Sex and Gender Information Value Date Recorded Sex Assigned at Not on file Legal Sex Female 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
--- OUTSIDE RECORDS SUMMARY | 2025-02-08 08:38 | XMS_ITS | Referral Summary ---
Author Organization [facility] Address [address] [place] [address] Care Team Providers Care Truck Switcher Name Role Phone Mirian Bentley MD Primary Care Provider [phone] Haily Vanegas MD Unavailable [phone] Encounters Date Type Department Care Team Description 11/28/[address] [facility] Cardiology [address] [facility] [address] [place] [address] Iain Calderón MD from Last [...] Units total) by mouth daily Active omega 1-fku-ise-fish oil 1,000 mg (120 mg-180 mg) capsule [...] lancets (OneTouch Delica Plus Lancet) 33 gauge [facility] OneTouch Delica Plus Lancet 33 gauge Active blood glucose diagnostic (OneTouch Verio test strips) strip OneTouch Verio test strips Active blood-glucose meter (OneTouch Verio Reflect Meter) [facility] OneTouch Verio Reflect Meter Active atenoloL (TENORMIN) [...] (05/14/2024): Location: None;Severity: Moderate;Progress: Stable;Added By: Valeria Cuh;Add to Current Problems: NO Precordial pain 10/13/2012 [...] on file Legal Sex Female 7:17 PM COMMUNITY RELATIONS COORDINATOR Gender Identity Not on file Sexual Orientation Not on file Last Filed Vital Signs Vital Sign Reading Time Taken Comments Blood Pressure 118/60 05/23/2024 11:28 AM CDT Pulse 62 05/23/2024 11:28 AM CDT Temperature 36.2 C (97.1 F) 08/10/2021 9:12 AM COMMUNITY RELATIONS COORDINATOR Respiratory Rate - - Oxygen Saturation 98% [...] COMPREHENSIVE METABOLIC PANEL Routine 11/28/2024 8:24 AM COMMUNITY RELATIONS COORDINATOR MAGNESIUM Routine 11/28/2024 8:24 AM COMMUNITY RELATIONS COORDINATOR LIPID PANEL Routine 11/28/2024 8:24 AM COMMUNITY RELATIONS COORDINATOR CBC WITH AUTO DIFFERENTIAL Routine 11/28/2024 8:24 AM COMMUNITY RELATIONS COORDINATOR TSH Routine 11/28/2024 8:24 AM COMMUNITY RELATIONS COORDINATOR from Last 3 Months Results * (ABNORMAL) CBC with auto differential (11/28/2024 8:24 AM COMMUNITY RELATIONS COORDINATOR) Pathologist [facility] WBC 5.2 3.8 - 10.8 Thousand/u L [...] % [facility] 11/28/2024 8:24 AM COMMUNITY RELATIONS COORDINATOR 11/28/2024 8:25 AM COMMUNITY RELATIONS COORDINATOR Iain Calderón MD LAB BLOOD ORDERABLES Final Result Performing Organization Address [facility] de Phone Number [facility] [address] [place] [address] * TSH (11/28/2024 8:24 AM COMMUNITY RELATIONS COORDINATOR) TSH 2.79 0.40 - 4.50 mIU/L [facility] 11/28/2024 8:24 AM COMMUNITY RELATIONS COORDINATOR 11/28/2024 8:25 AM COMMUNITY RELATIONS COORDINATOR Iain Calderón MD LAB BLOOD ORDERABLES Final Result Performing Organization Address [facility] Phone Number [facility] [address] [place] [address] * Magnesium (11/28/2024 8:24 AM COMMUNITY RELATIONS COORDINATOR) Pathologist [facility] Magnesium 1.9 1.5 - 2.5 mg/dL [facility] 11/28/2024 8:24 AM COMMUNITY RELATIONS COORDINATOR 11/28/2024 8:25 AM COMMUNITY RELATIONS COORDINATOR Iain Calderón MD LAB BLOOD ORDERABLES Final Result Performing Organization Address [facility] Phone Number [facility] [address] [place] [address] * (ABNORMAL) Lipid panel (11/28/2024 8:24 AM COMMUNITY RELATIONS COORDINATOR) Cholesterol 112 <200 mg/dL [facility] [...] LDL-C. Nando SCOTT et al. PRATEEK. 2013;310(19): 7707-9008 (http://education.[employer]/faq/ETV291) Chol/HDL ratio 2.4 <5.0 (calc) [facility] Non-HDL, (LDL+VLDL) 65 <130 mg/dL (calc) [facility] Comment: For patients with diabetes plus 1 major ASCVD risk factor, treating to a non-HDL-C goal of <100 mg/dL (LDL-C of <70 mg/dL) is considered a therapeutic option. 11/28/2024 8:24 AM COMMUNITY RELATIONS COORDINATOR 11/28/2024 8:25 AM COMMUNITY RELATIONS COORDINATOR Iain Calderón MD LAB BLOOD ORDERABLES Final Result [facility] [address] [place] [address] * (ABNORMAL) Comprehensive metabolic panel (11/28/2024 8:24 AM COMMUNITY RELATIONS COORDINATOR) Pathologist [facility] Glucose 111(H) 65 - 99 mg/dL [facility] [...] U/L [facility] 11/28/2024 8:24 AM COMMUNITY RELATIONS COORDINATOR 11/28/2024 8:25 AM COMMUNITY RELATIONS COORDINATOR us Iain Calderón MD LAB BLOOD ORDERABLES Final Result [facility] [address] [place] [address] from Last 3 Months Insurance MEDICARE [facility] MEDICARE [facility] Care Teams Truck Switcher Relationship Specialty Start Date End Date Mirian Bentley MD [address] [address] PCP - General 10/17/12 Haily Vanegas MD [address] [facility] [address] [address] Car Distributor Cardiovascular Disease 05/06/19
--- OUTSIDE RECORDS SUMMARY | 2025-02-08 08:38 | XMS_ITS | Encounter Summary ---
Author Organization [facility] Facility Care Team Providers Care Finishing Lab Technician Name Role Phone Mirian Bentley MD Primary Care Provider [phone] Haily Vanegas MD Unavailable [phone] Encounter Details Date Type Department Care Team (Latest Contact Info) Description 10/05/2016 Orders Only [facility] CLINCONV ProviderRyan MD [address] [place] [address] Social History Tobacco Use Types Packs/Day Years Used Date Smoking Tobacco: Former Cigarettes Q uit: 10/01/1982 Alcohol Use Standard Drinks/Week Comments Yes 0 (1 standard drink = 0.6 oz pur e alcohol) Comments Unknown Sex and Gender Information Value Date Recorded Sex Assigned at Not on file Legal Sex Female 7:17 PM RADIO TELEVISION TECHNICAL DIRECTOR Gender Identity Not on file Sexual Orientation Not on file documented as of this encounter Plan of Treatment Not on file documented as of this encounter Procedures Procedure Name Priority Date/Time Associated Diagnosis Comments CARDIOLOGY REPORT 10/19/2016 12: 00 AM RADIO TELEVISION TECHNICAL DIRECTOR documented in this encounter Results * CARDIOLOGY REPORT (10/19/2016 12:00 AM RADIO TELEVISION TECHNICAL DIRECTOR) Anatomical Region Laterality Modality Other Narrative 10/19/2016 12:00 AM RADIO TELEVISION TECHNICAL DIRECTOR Ordered by an unspecified provider. Historical Provider [facility] CARDIAC SERVICES LOYDA HOFF Final Result documented in this encounter Visit Diagnoses Not on filedocumented in this encounter Care Teams Finishing Lab Technician Relationship Specialty Start Date End Date Mirian Bentley MD [address] [address] PCP - General 10/17/12 Haily Vanegas MD [address] [facility] [address] [address] Rooter Operator Cardiovascular Disease 05/06/19 documented as of this encounter
--- OUTSIDE RECORDS SUMMARY | 2025-02-08 08:38 | XMS_ITS | Encounter Summary ---
Author Organization [facility] Facility Care Team Providers Care Real Estate Broker Associate Name Role Phone Mirian Bentley MD Primary Care Provider [phone] Haily Vanegas MD Unavailable [phone] Encounter Details Date Type Department Care Team (Latest Contact Info) Description 12/18/2017 Orders Only [facility] CLINCONV ProviderRyan MD [address] [place] [address] Social History Tobacco Use Types Packs/Day Years Used Date Smoking Tobacco: Former Cigarettes Q uit: 10/01/1982 Alcohol Use Standard Drinks/Week Comments Yes 0 (1 standard drink = 0.6 oz pur e alcohol) Comments Unknown Sex and Gender Information Value Date Recorded Sex Assigned at Not on file Legal Sex Female 7:17 PM SLEEPING CAR CONDUCTOR Gender Identity Not on file Sexual Orientation [...] on filedocumented in this encounter Care Teams Real Estate Broker Associate Relationship Specialty Start Date End Date Mirian Benltey MD [address] [address] PCP - General 10/17/12 Haily Vanegas MD [address] [facility] [address] [address] Insecticide Expert Cardiovascular Disease 05/06/19 documented as of this encounter
--- OUTSIDE RECORDS SUMMARY | 2025-02-08 08:38 | XMS_ITS | Data Portability ---
Author Organization [facility] SHAHIDAAmparo Saeed Address [address] 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 Assessment Encounter Date Assessment Date Assessment LastModified [...] DO Not Attach Compendium, Do Not Delete/merge, [id number] 11/03/2024 12:55:28 culture, urine 2024 025 [facility], [address], [place], [address], 11/05/2024 01:15:38 HbA1c (hemoglob in A1c), blood 2024 025 In-Office Order, Internal Use Only DO Not Attach Compendium DO Not Attach Compendium, Do Not Delete/merge, [id number] 11/03/2024 11:57:06 hepatitis C virus Ab, serum 2024 025 jordan [facility], [address], [place], [address], 12/18/2024 12:00:48 HIV 1+2 Ab + HIV1 p24 Ag, quantitat tiera immunoass ay, serum 2024 025 [facility], [address], [place], [address], 12/18/2024 12:00:48 HbA1c (hemoglob in A1c), blood 2023 024 [facility], [address], [place], [address], 05/10/2024 00:02:34 microalbu min, urine 2023 024 ALEXA In-Office Order, Internal Use Only DO Not Attach Compendium DO Not Attach Compendium, Do Not Delete/merge, [id number] 05/01/2024 17:24:25 HbA1c (hemoglob in A1c), blood 2023 024 ALEXA In-Office Order, Internal Use Only DO Not Attach Compendium DO Not Attach Compendium, Do Not Delete/merge, [id number] 10/25/2023 14:50:01 HbA1c (hemoglob in A1c), blood 2022 023 In-Office Order, Internal Use Only DO Not Attach Compendium DO Not Attach Compendium, Do Not Delete/merge, [id number] 06/19/2023 12:01:53 Referral None recorded. Procedures None recorded. Surgeries None recorded. Imaging US, screening for abdominal aortic aneurysm - she is to get her mammogram 11/10/24-- can this test be coordinat ed with that test? 2024 025 [facility] (Imaging), [address], [place], [address], 12/03/2024 11:52:17 XR, chest, 2 view 2023 024 ALEXA Not available 10/26/2023 18:11:44 Medication Orders alprazola m 0.25 mg tablet 2024 025 [facility], [facility], [place], [address], 11/03/2024 11:57:47 Patient TargetsNo targets recorded. Patient Instructions Encounter Date Encounter Id Patient Instructions Last Modified By Organization Details Last Modified Time 12/18/2023 [id number] follow up with clara sanjeev in 4 months-- to have knee joint replaced next month-- pre-op lab testing was reviewed from orthopedist last Hgb A1C was good and FBG was 110 Not available 12/18/2023 11:58:08 05/01/2024 [id number] A healthy lifestyle: care instructions Not available 05/01/2024 14:55:32 11/03/2024 [id number] Medicare [facility] Preventive Checklist Not available 11/03/2024 11:57:06 [...] DO Not Attach Compendium, Do Not Delete/merge, [id number] 06/19/2023 09:23:25 10/25/19 24 10/25/2023 HbA1c (hemo globi n A1c), blood HbA1c 5.9 Not Available In-Office Order Internal Use Only DO Not Attach Compendium DO Not Attach Compendium, Do Not Delete/merge, [id number] 10/25/2023 14:42:14 05/01/20 24 05/01/2024 micro album in, urine Microalbumin 0 Not Available In-Of fice Order Internal Use Only DO Not Attach Compendium DO Not Attach Compendium, Do Not Delete/merge, [id number] 05/01/2024 14:48:52 05/09/20 24 05/09/2024 HEMOG LOBIN [...] valid ation testi ng condu cted at [facility] , the [facility] relat tiera [...] is not recom tone d. Not Available [facility] [id number] , [place], [address], 05/10/2024 00:02:34 11/03/19 25 11/05/2024 CULTU RE, URINE , ROUTI NE culture, urine, routine SEE NOTE CULTU RE, URINE , ROUTI NE Micro Numbe r: [id number] Test Statu s: Final Speci men Sourc e: Urine Speci men Quali ty: Adequ ate Resul t: No Growt h Not Available [facility] [address] , [place], [address], 11/05/2024 01:15:38 11/03/19 25 11/03/2024 urina lysis [...] 11/03/2024 urina lysis , dipst ick Specific [place] 1.015 Not Available In-Off ice Order Internal [...] 2 view No observ ation record ed. [facility] [address], [place], [address], 11/01/2023 16:06:35 11/07/19 24 11/06/2023 MAMMO , scree newton, tomos ynthe sis, bilat eral No observ ation record ed. [address] [facility], [place], [address], 11/08/2023 12:30:01 12/05/19 24 12/03/2023 CT, lower leg, w/o contr ast No observ ation record ed. [address] [address], [place], [address], 12/18/2023 11:58:39 12/18/19 24 12/03/2023 elect lizett nichols am No observ ation record ed. [address] [address], [place], [address], 12/18/2023 14:04:41 01/24/20 24 01/24/2024 XR, knee, 3 view No observ ation record ed. [address] [address], [place], [address], 01/24/2024 16:44:31 03/28/20 24 03/12/2024 XR, knee, 3 view No observ ation record ed. Not Available 2023 16:02:16 11/10/19 25 11/10/2024 MAMMO , scree newton, bilat eral No observ ation record ed. [address] [facility], [place], [address], 11/11/2024 12:10:11 12/04/19 25 12/03/2024 US, munir ramosg for abdom inal aorti c aneur ysm No observ ation record ed. [facility] [address], [place], [address], 12/03/2024 14:24:32 Result Notes None recorded. Problems Name Problem SNOMED Code Status Onset Date Resolution Date Notes Provider Name and Address Organization Details Recorded Time Pain in right heel 27954936924 55459 Active 2017 Mirian Tolbert MD Attn: Accounting ,[address] [place], [address] , [place] [facility] 2 21:00:30 Edema of lower extremit y 994642645 Active 2017 Mirian Tolbert MD Attn: Accounting ,[address] [place], [address] , [place] [facility] 2 21:00:14 Mixed hyperlip idemia 119202640 Active 2017 Mirian Tolbert MD Attn: Accounting ,[address] [place], [address] , [place] [facility] 2 21:00:25 Feeling stressed 208767175 Completed 201707/19/2020 Mirian Tolbert MD Attn: Accounting ,[address] [place], [address] , [place] [facility] 0 18:09:25 Muscle pain 44900962 Completed 201707/19/2020 Mirian Tolbert MD Attn: Accounting ,[address] [place], [address] , [place] [facility] 0 18:09:33 Glenoid labrum tear 520157731 Active 2018 Mirian Tolbert MD Attn: Accounting ,[address] [place], [address] , [place] [facility] 2 21:00:19 Seasonal allergic rhinitis 124871318 Active 2018 Mirian Tolbert MD Attn: Accounting ,[address] [place], [address] , [place] [facility] 2 21:00:41 Headache 44003870 Active 2018 Mirian Tolbert MD Attn: Accounting ,[address] [facility], [place], [address] , [place] [facility] 2 21:00:22 Oliveira's neuroma of right foot 91690076314 9108 Active 2019 Mirian Tolbert MD Attn: Accounting ,[address] [facility], [place], [address] , [place] [facility] 4 14:28:59 Type 2 diabetes mellitus without complica tion 199927419 Active 2019 Mirian Tolbert MD Attn: Accounting ,[address] [facility], [place], [address] , [place] [facility] 4 14:28:59 Atypical chest pain 014378080 Active 2020 Mirian Tolbert MD Attn: Accounting ,[address] [facility], [place], [address] , [place] [facility] 5 11:37:30 Hiatal hernia 73839620 Active Mirian Tolbert MD Attn: Accounting ,[address] [facility], [place], [address] , [place] [facility] 5 11:37:30 Transien t insomnia 524556030 Active 2020 Mirian Tolbert MD Attn: Accounting ,[address] [facility], [place], [address] , [place] [facility] 4 14:28:59 Recurren t herpes simplex 90575021 Active 2020 Mirian Tolbert MD Attn: Accounting ,[address] [facility], [place], [address] , [place] [facility] 4 14:28:59 Recurren t urinary tract infectio n 276779220 Active 2020 Mirian Tolbert MD Attn: Accounting ,[address] [place], [address] , [place] [facility] 4 14:28:59 Chronic anxiety 351810800 Active 2020 Mirian Tolbert MD Attn: Accounting ,[address] [facility], [place], [address] , [place] [facility] 4 14:28:59 Essentia l hyperten tyrel 56065722 Completed 07/16/2017 Mirian Tolbert MD Attn: Accounting ,[address] [facility], [place], [address] , [place] [facility] 7 12:18:48 Gastroes ophageal reflux disease 619704749 Active Mirian Tolbert MD Attn: Accounting ,[address] [facility], [place], [address] , [place] [facility] 5 11:37:30 Hypergly cemia 28990916 Completed 12/17/2017 Mirian Tolbert MD Attn: Accounting ,[address] [facility], [place], [address] , [facility] - [facility] 8 12:51:54 Precordi al pain 62186548 Completed 201211/07/2012 Location : None;Sev erity: Moderate ;Progres s: Stable;A dded By: Mirian Tolbert;Add to Current Problems : NO Not Available [facility] 7 11:23:55 Mononeur itis of lower limb Completed 201311/20/2013 Location : None;Sev erity: Moderate ;Progres s: Stable;A dded By: Mirian Tolbert;Add to Current Problems : YES Not Available [facility] 7 11:23:55 Nocturia 400796320 Completed 201409/10/2015 Location : None;Sev erity: Moderate ;Progres s: Stable;A dded By: Mirian Tolbert;Add to Current Problems : YES Not Available [facility] 7 11:23:55 Dysuria 58415050 Completed 201505/09/2016 Location : None;Sev erity: Moderate ;Progres s: Stable;A dded By: Mirian Tolbert;Add to Current Problems : YES Not Available [facility] 7 11:23:55 Vitamin D deficien 00507685 Active 2014 Location : None;Sev erity: Moderate ;Progres s: Stable;A dded By: Mirian Tolbert;Add to Current Problems : YES Not Available [facility] 7 11:23:55 Dyspnea 954720444 Completed 201211/07/2012 Location : None;Sev erity: Moderate ;Progres s: Stable;A dded By: Suha Wiggins;Add to Current Problems : NO Not Available [facility] 7 11:23:56 Indigest ion 021457702 Completed 201202/24/2013 Location : None;Sev erity: Moderate ;Progres s: Stable;A dded By: Debo Haynes;Add to Current Problems : NO Not Available [facility] 7 11:23:56 Benign essentia l hyperten tyrel 9314784 Active 2012 Location : None;Sev erity: Moderate ;Progres s: Stable;A dded By: Paulina Guzman;Add to Current Problems : NO Mirian Tolbert MD Attn: Accounting ,[address] [place], [address] , [facility] 5 11:37:30 Verruca vulgaris 76437223 Completed 201408/12/2015 Location : None;Sev erity: Moderate ;Progres s: Stable;A dded By: Paulina Guzman;Add to Current Problems : YES Not Available [facility] 7 11:23:56 Elevated blood-pr essure reading without diagnosi s of hyperten tyrel 485949618 Completed 201211/14/2012 Location : None;Sev erity: Moderate ;Progres s: Stable;A dded By: Valeria Chu; Add to Current Problems : NO Not Available [facility] 7 11:23:56 Essentia l hyperten tyrel 19311896 Completed 201310/20/2013 Location : None;Sev erity: Moderate ;Progres s: Stable;A dded By: Valeria Chu; Add to Current Problems : NO Mirian Tolbert MD Attn: Accounting ,[address] [facility], [place], [address] , [facility] 7 12:18:48 Urgent desire to urinate 06879382 Completed 201412/17/2017 Location : None;Sev erity: Moderate ;Progres s: Stable;A dded By: Valeria Chu; Add to Current Problems : YES Mirian Tolbert MD Attn: Accounting ,[address] [facility], [place], [address] , [facility] 8 12:51:58 Cough 16094567 Completed 201308/13/2014 Location : None;Sev erity: Moderate ;Progres s: Stable;A dded By: Arleth Frank i;A dd to Current Problems : YES Not Available [facility] 7 11:23:57 Candidal vulvovag initis 45451838 Completed 201512/30/2015 Location : None;Sev erity: Moderate ;Progres s: Stable;A dded By: Arleth Frank i;A dd to Current Problems : YES Not Available [facility] 7 11:23:57 Eruption 183720399 Completed 201505/08/2016 Location : None;Sev erity: Moderate ;Progres s: Stable;A dded By: Arleth Frank i;A dd to Current Problems : YES Not Available [facility] 7 11:23:57 Vaginiti s and vulvovag initis Active 2014 Location : None;Sev erity: Moderate ;Progres s: Stable;A dded By: Arleth Frank i;A dd to Current Problems : YES Mirian Tolbert MD Attn: Accounting ,[address] [facility], [place], [address] , [facility] 4 14:28:59 Glucose level outside referenc e range 220167176 Completed 201407/19/2020 Location : None;Sev erity: Moderate ;Progres s: Stable;A dded By: Rebekah Ackerman;Add to Current Problems : NO Mirian Tolbert MD Attn: Accounting ,[address] [facility], [place], [address] , [place] [facility] 0 18:09:18 Acute cystitis 01280255 Completed 201409/03/2015 Location : None;Sev erity: Moderate ;Progres s: Stable;A dded By: Debo Haynes;Add to Current Problems : NO Not Available [facility] 7 11:23:57 Anxiety 75308167 Active 2016 Mirian Tolbert MD Attn: Accounting ,[address] [facility], [place], [address] , [facility] - [facility] 5 11:37:30 Photoder matitis due to sun Active 2016 Mirian Tolbert MD Attn: Accounting ,[address] [facility], [place], [address] , [facility] - [facility] 4 14:28:59 Problem Notes None recorded. Procedures Surgical History Date Name Laterality Status Provider Name and Address Organization Details Recorded Time 01/24/20 24 total knee replacement completed Mirian Tolbert MD Attn: Accounting,[address] [facility], [place], [address], [facility] - [facility] 02/08/2024 17:36:41 07/28/20 19 arthroplasty of left shoulder completed Mirian Tolbert MD Attn: Accounting,[address] [facility], [place], [address], [facility] - [facility] 08/05/2019 19:03:13 03/26/20 17 Shave Biopsy completed Mirian Tolbert MD Attn: Accounting,[address] [facility], [place], [address], [place] [facility] 03/26/2017 15:54:03 10/01/19 04 Hysterectomy completed Paulina Riojas [place] - [facility] 07/10/2016 11:22:31 Imaging Results Imaging Date Name Status LastModified by Organization Details LastModified Time 08/06/2023 XR, knee, 4 or more view completed [facility] Information not available 08/22/2023 12:14:55 10/25/2023 XR, chest, 2 view completed [address] [facility], [place], [address], 11/01/2023 16:06:35 11/06/2023 MAMMO, screening, tomosynthesis, bilateral completed [address], [address], 11/08/2023 12:30:01 12/03/2023 CT, lower leg, w/o contrast completed [address], [address], 12/18/2023 11:58:39 12/03/2023 electrocardiogram completed [address], [address], 12/18/2023 14:04:41 01/24/2024 XR, knee, 3 view completed [address], [address], 01/24/2024 16:44:31 03/12/2024 XR, knee, 3 view completed [facility] Informat ion not available 03/28/2024 16:02:16 11/10/2024 MAMMO, screening, bilateral completed [address] [address], [place], [address], 11/11/2024 12:10:11 12/03/2024 US, screening for abdominal aortic aneurysm completed [address], [address], 12/03/2024 14:24:32 Procedure Notes None recorded. Medical Equipment None Reported. Allergies Allergen ID Allergen Name Allergen Category Reaction Reaction Severity Criticality Documentation Date Start Date Code Code System Note Provider Name and Address Organization Details Recorded Time 85117 codeine medicatio n Not available Not available Not available 07/10/2016 2670 RxNorm Paulina ISELA Jordan - [facility] 6 11:12:41 38671 metoprolo l Not available Not available Not available Not available 07/10/2016 6918 RxNorm succi keith Reinoso Glorydaliaoracio floyd null, [facility] 7 14:50:57 81854 Ciprodex medicatio n flushing Not available Not available 07/28/20162015 85276 0 RxNorm MURRAY Jhaveri Attn: Parul waldron,[address] [facility], [place], [address] 6 11:01:42 83417 metoprolo l succinate medicatio n Not available Not available Not available 10/04/20162012 93221 4 RxNorm React ion: tongu e disor rehan;S everi ty: Moder ate; Comme nt: Aller gy Type: Adver se React ion; Not Available Critical [facility] hospital 7 03:50:06 68298 lisinopri l medicatio n rash Not available Not available 10/06/2016 21291 RxNorm Rand Pittsisaias null, [facility] 7 13:39:03 91407 atenolol medicatio n hives Not available Not available 10/23/2016 1202 RxNorm Paulina Beulah null, [facility] 7 16:33:34 Medications Name Sig Start Date Stop Date [...] release 24 hr TAKE 1 CAPSULE DAILY 2024 active Not Available Not Available Not Avai lable nitrofura ntoin macrocrys killian 50 mg capsule [...] ) by mouth daily 11/07 completed RxNorm: 116021;A llow Substitu tion: True Not Available Not [...] release Take 1 tablet(s ) by mouth [facility] 2012 active RxNorm: 198778;A llow Substitu tion: True Not Available Not [...] change-- failed three days a week;RxN orm: 907859;A llow Substitu tion: True Not Available Not Available Not Available amoxicill in 875 mg tablet Take 1 tablet(s ) by mouth q12h for 10 days 08/22 completed RxNorm: 848904;A llow Substitu tion: True Not Available Not [...] Take 1 tab daily 12/12 completed RxNorm: 434788;A llow Substitu tion: True Not Available Not Available Not Available metoprolo l tartrate 50 mg tablet 10/23 completed Not Available Not Available Not Available triamtere ne 37.5 mg-hydroc hlorothia zide 25 mg tablet TAKE 1 TABLET DAILY 2024 active Not Available Not Available Not Avai lable hydroxyzi ne HCl 25 mg tablet 02/15 [...] 5 mg tablet TAKE 1 TABLET DAILY 2024 active Not Available Not Available Not Avai lable rosuvasta tin 10 mg tablet TAKE 1 [...] s) by mouth daily 03/13 completed RxNorm: 962822;A llow Substitu tion: True Not Available Not [...] Plus Lancet 33 gauge USE DAILY DIRECTED 2024 active Not Available Not Available Not Avai lable OneTouch Verio Reflect Meter active Not Available [...] Updated DateTime 3 160.02 cm 28.1 kg/m2 04249.3 9 g 97.8 [degF] 98 % 98 % 76 /min 116 mm[Hg] 75 mm[Hg] Cleo Gallagher MA [facility] 3 11:13:03 Date Recorded Body height Body mass index (BMI) Body weight Body temperature Heart rate Oxygen saturation Oxygen saturation in Arterial blood by Pulse oximetry Systolic blood pressure Diastolic blood pressure Provider Name and Address Organization Details Last Updated DateTime 4 160.02 cm 27.6 kg/m2 70353.4 1 g 97.5 [degF] 76 /min 98 % 98 % 120 mm[Hg] 74 mm[Hg] Deepa Bronson MA [facility] 4 14:21:09 Date Recorded Body height Body mass index (BMI) Body weight Oxygen saturation Oxygen saturation in Arterial blood by Pulse oximetry Heart rate Body temperature Systolic blood pressure Diastolic blood pressure Provider Name and Address Organization Details Last Updated DateTime 4 160.02 cm 27.3 kg/m2 18356.2 2 g 97 % 97 % 77 /min 97.5 [degF] 113 mm[Hg] 78 mm[Hg] Anastasia Orozco MA [facility] 4 11:26:43 Date Recorded Body height Body mass index (BMI) Body weight Body temperature Oxygen saturation Oxygen saturation in Arterial blood by Pulse oximetry Heart rate Systolic blood pressure Diastolic blood pressure Provider Name and Address Organization Details Last Updated DateTime 4 160.02 cm 26.7 kg/m2 87539.4 5 g 97.7 [degF] 99 % 99 % 68 /min 108 mm[Hg] 67 mm[Hg] Deepa Bronson MA [facility] 4 14:15:49 Date Recorded Body height Body mass index (BMI) Body weight Body temperature Heart rate Oxygen saturation Oxygen saturation in Arterial blood by Pulse oximetry Systolic blood pressure Diastolic blood pressure Provider Name and Address Organization Details Last Updated DateTime 5 160.02 cm 26.9 kg/m2 19384.0 4 g 97.7 [degF] 73 /min 97 % 97 % 120 mm[Hg] 75 mm[Hg] Deepa Bronson MA [facility] 5 10:56:33 Social History Question Answer Notes LastModified by Organizat ion Details LastModified Time Tobacco Smoking Status Former Smoker Arleth Gaffney brynn [facility] 12/21/2016 17:20:59 Do You Have An [...] Anxious, Or Unable To Sleep At Night)? [id number] Information not available 01/18/2021 Do You Use [...] Time zoster recombinant 0 completed Not Available [facility] 07/03/2023 18:21:58 COVID-19, mRNA, LNP-S, PF, 30 mcg/0.3 mL dose 1 completed Not Available [facility] 07/03/2023 18:21:58 COVID-19, mRNA, LNP-S, PF, 30 mcg/0.3 mL dose 1 completed Not Available [facility] 07/03/2023 18:21:58 Tdap 2 completed Not Available [facility] 07/03/2023 18:21:58 Influenza, split virus, quadrivalent, preservative 6 completed Not Available [facility] 10/18/2019 02:32:32 zoster recombinant 0 completed Not Available [facility] 07/03/2023 18:21:58 COVID-19, mRNA, LNP-S, PF, 30 mcg/0.3 mL dose 1 completed Not Available [facility] 07/03/2023 18:21:58 Influenza, split virus, quadrivalent, PF 0 completed Not Available [facility] 07/03/2023 18:21:58 Pneumococcal conjugate PCV20, polysaccharide IDE374 conjugate, adjuvant, PF 3 completed Not Available [facility] 07/03/2023 18:21:58 COVID-19, mRNA, LNP-S, PF, 50 mcg/0.5 mL 4 completed Mirian Tolbert MD Attn: Accounting[address] [place], [address], [place] [facility] 11/03/2024 11:37:02 Influenza, high-dose, trivalent, PF 4 completed Mirian Tolbert MD Attn: Accounting[address] [place], [address], [place] [facility] 11/03/2024 11:37:02 Influenza, split virus, quadrivalent, preservative 7 completed Not Available [facility] 10/18/2019 02:34:21 Influenza, split virus, quadrivalent, preservative 8 completed Not Available [facility] 10/18/2019 02:36:25 Influenza, split virus, quadrivalent, preservative 9 completed Not Available [facility] hospital 10/18/2019 02:38:46 Influenza, split virus, quadrivalent, preservative 1 completed Liang Chow [place], [place] [facility] 08/05/2021 11:01:21 Pneumococcal conjugate PCV 13 2 completed Liang Chow [place], [place] [facility] 11/29/2021 11:29:09 Influenza, split virus, quadrivalent, preservative 3 completed Liang Chow [place], [place] [facility] 10/10/2022 11:07:40 Influenza, split virus, trivalent, preservative 4 completed Not Available [facility] 07/03/2023 18:21:58 Influenza, split virus, quadrivalent, preservative 5 completed Not Available [facility] 07/03/2023 18:21:58 Influenza, split virus, quadrivalent, preservative 4 completed Mirian Tolbert MD Attn: Accounting[address] [place], [address], [facility] - [facility] 10/26/2023 08:00:56 Past Encounters Encounter ID Performer Location Encounter Start Date Encounter Closed Date Diagnosis/Indication Diagnosis SNOMED-CT Code Diagnosis ICD10 Code Diagnosis Note [id number] Mirian Tolbert MD [facility] [address] [place] [address] 07/10/2016 10:45:17 07/10/2016 17:46:36 Gynecologic examination 68653139 Z01.411 physcal activity-- lose weight. Recheck BP in 3 mo Atrophic vaginitis 31744 000 N95.2 Gastroesop hageal reflux disease without esophagitis 313339246 K21.9 Hyperglycemia 79813265 R 73.9 Screening for malignant neoplasm of colon 540204066 Z12.11 Hyperlipid emia screening 962371236 Z13.220 Administra tion of influenza vaccine 44765989 Z23 Thyroid di sorder screening 360628423 Z13.29 Increased blood pressure 06288030 R03.0 Upper resp iratory infection 50575996 J06.9 you will call if you do not feel better with pain reliever and rest. Ok for over the counter cougha dn cold reliever-- but avoid decongesta nts [id number] Mirian Tolbert MD [facility] [address] [facility] [address] [place] [address] 07/28/2016 10:41:40 07/31/2016 17:19:36 Eustachian tube disorder 31200204 H69.93 Discussed ear valsalvas, which gave her immediate relief in the office. [id number] Mirian Tolbert MD [facility] [address] [facility] [address] [place] [address] 10/03/2016 12:36:04 10/04/2016 13:26:35 Atypical chest pain 980992761 R07.89 given FH of heart disease and your complaint- - I will refer you to a cardiologi st to further evaluate your complaint Anxiety 15036308 F41.9 due to panic attacks-- I recommend that you are off of work for a week for further testing and to make arrangemen ts with your parents Gastroesop hageal reflux disease 402188944 K21.9 [id number] Mirian Tolbert MD [facility] [address] [facility] [place] [address] [place] [address] 10/23/2016 16:23:56 10/24/2016 13:56:20 Anxiety 74436739 F41.9 due to panic attacks--c ont to try to get transporta tion for your parents to avoid emotional stress [id number] Mirian Tolbert MD [facility] [address] [facility] [place] [address] [place] [address] 12/25/2016 16:39:08 12/26/2016 15:58:01 Anxiety 68006473 F41.9 due to panic attacks--c ont to try to get transporta tion for your parents to avoid emotional stress. Worried about her parents and their medication and cognitive issues. Contusion of foot 523128 04 S90.31XA [id number] Mirian Tolbert MD [facility] [address] [place] [address] 03/26/2017 14:28:52 03/26/2017 16:20:19 Anxiety 58400211 F41.9 no change meds for anxiety and stress-- use sparingly as directed Intermitte nt dysphagia 67595961 R13.19 Herpes simplex 70081513 B00.9 Skin lesion 65600832 L98 .9 [id number] Mirian Tolbert MD [facility] [address] [place] [address] 07/02/2017 12:22:16 07/02/2017 14:30:02 Allergic reaction to drug 439301905 T50.905A stop the losartan/H CTZ and start Losartan alone. Restart the Propranolo l. Recheck in 2 weeks. The rash is likely related to sun sensitivit y with the HCTZ Administra tion of influenza vaccine 18213339 Z23 [id number] Mirian Tolbert MD [facility] [address] [place] [address] 07/16/2017 11:08:41 07/16/2017 18:03:10 Photodermatitis due to sun 400720636 L56.2 reassured that rash looks good. Feeling better at this time Glucose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
--- OUTSIDE RECORDS SUMMARY | 2025-02-08 08:38 | XMS_ITS | Clinical Summary ---
Author Organization [facility] Office Center Address [address] [place] [address] Care Team Providers Care Press Cutter Name Role Phone Mirian Bentley MD Primary Care Provider [phone] Haily Vanegas MD Unavailable [phone] Allergies Active Allergy Reactions Criticality Noted Date [...] Units total) by mouth daily Active omega 3-pli-lfv-fish oil 1,000 mg (120 mg-180 mg) capsule [...] lancets (OneTouch Delica Plus Lancet) 33 gauge [facility] [place] OneTouch Delica Plus Lancet 33 gauge Active blood glucose diagnostic (OneTouch Verio test strips) strip OneTouch Verio test strips Active blood-glucose meter (OneTouch Verio Reflect Meter) [facility] [place] OneTouch [place]io Reflect Meter Active atenoloL (TENORMIN) [...] Department Care Team Description 11/28/2024 Orders Only [facility] Cardiology [address] [place] [address] Iain Calderón MD from Last [...] on file Legal Sex Female 7:17 PM BOBBIN INSPECTOR Gender Identity Not on file Sexual Orientation Not on file Obstetrics History Last Filed Vital Signs Vital Sign Reading Time Taken Comments Blood Pressure 118/60 05/23/2024 11:28 AM CDT Pulse 62 05/23/2024 11:28 AM CDT Temperature 36.2 C (97.1 F) 08/10/2021 9:12 AM BOBBIN INSPECTOR Respiratory Rate - - Oxygen Saturation 98% [...] 2 - PPSV23) 01/24/2022 11/29/2021 Covid-19 Vaccine ( - 2023-2 5 season) 2024 09/29/2021, 12/31/2020, 12/07/2020 Breast Cancer Screening-Mammogram 11/07/2024 11/07/2023, 06/28/2022, 04/27/2021, Additional history exists Influenza Vaccine (Season Ended) 2025 10/25/2023, 10/10/2022, 08/05/2021, Additional history exists Lipid Panel 11/28/2025 11/28/2024, 05/09/2024 eGFR 11/28/2025 11/28/2024, 05/09/2024 DTaP/Tdap/Td Vaccine (2 - Td or Tdap) 11/30/2031 11/29/2021 Zoster Vaccine Completed 09/28/2020, 07/30/2020 Procedures Procedure Name Priority Date/Time Associated Diagnosis Comments COMPREHENSIVE METABOLIC PANEL Routine 11/28/2024 8:24 AM BOBBIN INSPECTOR MAGNESIUM Routine 11/28/2024 8:24 AM BOBBIN INSPECTOR LIPID PANEL Routine 11/28/2024 8:24 AM BOBBIN INSPECTOR CBC WITH AUTO DIFFERENTIAL Routine 11/28/2024 8:24 AM BOBBIN INSPECTOR TSH Routine 11/28/2024 8:24 AM BOBBIN INSPECTOR from Last 3 Months Results * (ABNORMAL) CBC with auto differential (11/28/2024 8:24 AM BOBBIN INSPECTOR) WBC 5.2 3.8 - 10.8 Thousand/u L [...] % [facility] 11/28/2024 8:24 AM BOBBIN INSPECTOR 11/28/2024 8:25 AM BOBBIN INSPECTOR Iain Calderón MD LAB BLOOD ORDERABLES Final Result Performing Organization Address City/State/[facility] Co de Phone Number QUEST [facility] [address] [place] [address] * TSH (11/28/2024 8:24 AM BOBBIN INSPECTOR) [facility] TSH 2.79 0.40 - 4.50 mIU/L [facility] 11/28/2024 8:24 AM BOBBIN INSPECTOR 11/28/2024 8:25 AM BOBBIN INSPECTOR us Iain Calderón MD LAB BLOOD ORDERABLES Final Result Performing Organization Address [facility] Co de Phone Number SRINATH [facility] [address] [place] [address] * Magnesium (11/28/2024 8:24 AM BOBBIN INSPECTOR) [facility] Magnesium 1.9 1.5 - 2.5 mg/dL [facility] 11/28/2024 8:24 AM BOBBIN INSPECTOR 11/28/2024 8:25 AM BOBBIN INSPECTOR us Iain Calderón MD LAB BLOOD ORDERABLES Final Result Performing Organization Address [facility] de Phone Number SRINATH [facility] [address] [place] [address] * (ABNORMAL) Lipid panel (11/28/2024 8:24 AM BOBBIN INSPECTOR) [facility] Cholesterol 112 <200 mg/dL [facility] [...] of LDL-C. Nando SCOTT et al. PRATEEK. 2013;310(91): 8540-3983 (http://education.B-Obvious/faq/QFH837) Chol/HDL ratio 2.4 <5.0 (calc) [facility] Non-HDL, (LDL+VLDL) 65 <130 mg/dL (calc) [facility] Comment: For patients with diabetes plus 1 major ASCVD risk factor, treating to a non-HDL-C goal of <100 mg/dL (LDL-C of <70 mg/dL) is considered a therapeutic option. 11/28/2024 8:24 AM BOBBIN INSPECTOR 11/28/2024 8:25 AM BOBBIN INSPECTOR us Iain Calderón MD LAB BLOOD ORDERABLES Final Result QUEST [facility] [address] [address] [facility] [place] [address] * (ABNORMAL) Comprehensive metabolic panel (11/28/2024 8:24 AM BOBBIN INSPECTOR) Glucose 111(H) 65 - 99 mg/dL [facility] [...] U/L [facility] 11/28/2024 8:24 AM BOBBIN INSPECTOR 11/28/2024 8:25 AM BOBBIN INSPECTOR us Iain Calderón MD LAB BLOOD ORDERABLES Final Result [facility] [address] [place] [address] from Last 3 Months Insurance MEDICARE [facility] Address: [address] [address] [facility] [address] [employer] Care Teams Press Cutter Relationship Specialty Start Date End Date Mirian Bentley MD [address] [address] PCP - General 10/17/12 Haily Vanegas MD [address] [address] Field Reviewer Cardiovascular Disease 05/06/19
--- OUTSIDE RECORDS SUMMARY | 2025-02-08 08:38 | XMS_ITS | Encounter Summary ---
Author Organization [facility] Facility Care Team Providers Care Professor Of Sociology Name Role Phone Mirian Bentley MD Primary Care Provider [phone] Haily Vanegas MD Unavailable [phone] Encounter Details Date Type Department Care Team (Latest Contact Info) Description 10/19/2016 Orders Only [facility] ProviderRyan MD [address] [place] [id number] Social History Tobacco Use Types Packs/Day Years Used Date Smoking Tobacco: Former Cigarettes Q uit: 10/01/1982 Alcohol Use Standard Drinks/Week Comments Yes 0 (1 standard drink = 0.6 oz pur e alcohol) Comments Unknown Sex and Gender Information Value Date Recorded Sex Assigned at Not on file Legal Sex Female 7:17 PM RUG CLEANER Gender Identity Not on file Sexual Orientation Not on file documented as of this encounter Plan of Treatment Not on file documented as of this encounter Procedures Procedure Name Priority Date/Time Associated Diagnosis Comments CARDIOLOGY REPORT 10/19/2016 12: 00 AM RUG CLEANER documented in this encounter Results * CARDIOLOGY REPORT (10/19/2016 12:00 AM RUG CLEANER) Anatomical Region Laterality Modality Other Narrative 10/19/2016 12:00 AM RUG CLEANER Ordered by an unspecified provider. Historical Provider [facility] Final Result documented in this encounter Visit Diagnoses Not on filedocumented in this encounter Care Teams Professor Of Sociology Relationship Specialty Start Date End Date Mirian Bentley MD [address] [address] PCP - General 10/17/12 Haily Vanegas MD [address] [facility] [address] [address] Clinical Laboratory Aide Cardiovascular Disease 05/06/19 documented as of this encounter
== END 2025-02-08 08:33 | disposition home or self-care (01) ==
PROVIDERS: PCP Family Medicine; Visit Provider Orthopaedic Surgery
DX: Z96.651 Presence of right artificial knee joint (principal)
CPT/HCPCS: 73562